=== PATIENT | male | born 1995 | race Caucasian/White ===

== ENCOUNTER 2023-11-03 09:42 | Emergency (ER) | payer OTHER, SELFPAY ==
[2023-11-03 09:43] VITALS: BP 129/90; PULSE 72; RESP 16; TEMP 36.6; O2SAT 100; BMI 27.7
[2023-11-03 09:45] VITALS: BP 129/78; PULSE 72; RESP 16; TEMP 36.6; O2SAT 98
--- NOTE | 2023-11-03 10:21 | EX.ED.VIS.EY ---
HPI History of Present Illness Chief Complaint: Eye Problem Associated Symptoms History of injury: No Narrative Narrative: 28-year-old male presents from urgent care with his fianc?e for right eyelid swelling when he awoke this morning. They relate history that he has had problems with conjunctivitis and reported periorbital cellulitis over the last few weeks. First it started in his left eye, then it was in his right eye. He has been on amoxicillin twice. Once was from urgent care, and there was leftover amoxicillin when it infected his right eye. He denies any fevers or chills, no loss of vision but he has had a bloodshot eye and right eye redness with a small amount of discharge. He has no pain with movement of his eye, no loss of vision. This is the first time that his right upper eyelid and somewhat in his lower eyelid has been swollen. He awoke this morning with his eyes swollen shut. PFSH PFS Home Medications amoxicillin 875 mg-potassium clavulanate 125 mg tablet 1 tab PO BID #20 tabs 11/03/23 [Rx Last Taken Unknown] Allergy/AdvReac Type Severity Reaction Status Date / Time No Known Allergies Allergy Verified 11/03/23 09:44 Social History Smoking Status: Never smoker ROS ROS ED ROS Narrative Constitutional: No fever, no chills. HEENT: No sore throat. No neck pain. No loss of vision. No rhinorrhea. Right eyelid swelling, upper greater than lower. Positive bloodshot eye. Cardiovascular: No chest pain. No palpitations. No pedal edema. Respiratory: No cough, no shortness of breath. Abdominal: No abdominal pain. No nausea. No vomiting. Genitourinary: No dysuria. No hematuria. Musculoskeletal: No myalgias. No arthralgias. Neurologic: No headaches. No dizziness. No lightheadedness. Skin: No rash. No change in color. Psychiatric: No depression. No anxiety. EXAM Physical Exam Narrative Exam Narrative: Focused physical exam. Afebrile. Nontoxic-appearing. Vital signs noted. HEENT: Normocephalic. Atraumatic. PERRL, EOMI. positive periorbital edema with right upper eyelid swelling and minimal swelling of right lower lid. No pain with movement of right eye/extraocular muscles. Positive conjunctival injection. No exudate. Neck soft and supple. No point tenderness or step off. Const Vital Signs: 11/03/23 09:43 11/03/23 09:45 Temperature 98 F 98 F Temperature Source Temporal Oral Pulse Rate 72 72 Respiratory Rate 16 16 Blood Pressure 129/90 H 129/78 H Blood Pressure Mean 103 95 Pulse Ox 100 98 Oxygen Delivery Method Room Air Room Air MDM MDM MDM Narrative Medical decision making narrative: In the differential diagnosis is periorbital cellulitis versus stye versus orbital cellulitis. I have low suspicion for orbital cellulitis as he has no pain with extraocular movement and there is no entrapment. I do feel that his edema is secondary to inflammation. He will be started on Augmentin for his recurrent periorbital cellulitis. I do not feel that he requires laboratory work or CT imaging. He was referred to the [facility] sn[facility] on-call and a prescription for Augmentin was written for the next 10 days to take twice a day. He will apply warm compresses as needed. I feel he can be discharged safely home with follow-up. Return instructions to the emergency department were reviewed. Disposition is discharged home in stable condition. History & Record Review Discussion w/independent historian: Patient and Significant other Discharge Plan Triage Chief Complaint: Eye Problem ED Provider: Adrián Newton Dx/Rx/DC Orders Clinical Impression: Swelling of right eyelid, Periorbital cellulitis of right eye Instructions: ED Periorbital Cellulitis Prescriptions: New amoxicillin-pot clavulanate 875-125 mg tablet 1 tab PO BID Qty: 20 0RF Referrals: Dwaine Manriquez MD [Med Staff - Active Staff] - As soon as possible Breonna Rebolledo MD [Med Staff - Active Staff] - 3-5 Days if not improving Disposition Disposition: Home, Self Care
[2023-11-03 10:34] VITALS: BP 119/69; PULSE 70; RESP 16; TEMP 36.6; O2SAT 98
[2023-11-03 10:35] VITALS: BP 119/69; PULSE 70; RESP 16; TEMP 36.8; O2SAT 98
== END 2023-11-03 10:36 | disposition home or self-care (01) ==
PROVIDERS: Emergency Provider Emergency Medicine; Visit Provider Emergency Medicine
DX: L03.213 Periorbital cellulitis (principal)
CPT/HCPCS: 99282

== ENCOUNTER → 2024-07-19 | Outpatient (CLI) | payer OTHER, SELFPAY ==
[2024-07-19 09:14] LABS: Absolute Lymphocyte Count 1.53 X10^3/uL (0.83-4.51); Absolute Neutrophil Count 5.6 X10^3/uL (2.0-7.7); Basophil# 0.06 X10^3/uL; Basophil% 0.8 % (0-1); Eosinophil# 0.09 X10^3/uL; Eosinophils% 1.1 % (0-5); Hematocrit 43.7 % (40-54); Hemoglobin 14.5 g/dL (13.0-16.5); Lymphocyte # 1.53 X10^3/ul (0.83-4.51); Lymphocyte % 19.2 % (19-41); Mean Corp Hgb Conc 33.2 g/dL (32-36); Mean Corpuscular Hgb 28.9 pg (27.0-32.0); Mean Corpuscular Volume 87.1 fL (80-94); Mean Platelet Vol. 9.3 fl (6.2-12.0); Monocyte# 0.68 X10^3/uL; Monocyte% 8.5 % (0-10); NRBC Flagged by Analyzer 0 % (0-5); Neutrophil # 5.56 X10^3/uL (2.7-7.7); Neutrophil % 69.9 % (47-70); Platelet Count 372 K/mm3 (150-450); RBC Distribution Width CV 11.9 % (11.6-14.6); RBC Distribution Width SD 38.2 fl (35.1-43.9); Red Blood Count 5.02 M/mm3 (4.6-6.2)
[2024-07-19 09:38] LABS: ALB/GLOB Ratio 1.1 RATIO (0.9-2.4); AST(SGOT) 74 U/L (15-37); Alanine Aminotransfer ALT/SGPT 144 U/L (16-61); Alkaline Phosphatase 99 U/L (45-117); Anion Gap 6 (5-15); BUN 14 mg/dL (7-18); BUN/Creat Ratio 14.7 RATIO (10-20); Calcium,Total 9.6 mg/dL (8.5-10.1); Chloride 107 mmol/L (98-107); Cholesterol 223 mg/dL (200); Creatinine, Serum 0.95 mg/dL (0.70-1.30); EST Glomerular Filtration Rate 101 mL/min (>60); Est Glom Filt Rate - Afr Amer 122 mL/min (>60); Globulin 3.8 g/dL (2.2-4.2); Glucose 100 mg/dL (74-106); High Density Lipoprotein 41 mg/dL; Protein, Total 7.8 g/dL (6.4-8.2); Sodium Level 138 mmol/L (136-145); Triglycerides 157 mg/dL; Very Low Density Lipoprotein 31 mg/dL (5-40)
[2024-07-21 12:28] LABS: Vitamin D,25 Hydroxy 12.5 ng/mL
[2024-07-21 13:48] LABS: Hemoglobin A1c 5.2 % (3.8-5.6)
== END | disposition home or self-care (01) ==
LOC: LAB 08:17
PROVIDERS: PCP Family Medicine; Referring Provider Family Medicine; Visit Provider Family Medicine
DX: Z00.00 Encounter for general adult medical examination without abnormal findings (principal); Z13.220 Encounter for screening for lipoid disorders; Z13.1 Encounter for screening for diabetes mellitus; R68.82 Decreased libido; R53.83 Other fatigue
CPT/HCPCS: 36415; 80053; 80061; 82306; 83036; 84403; 84443; 85025

== ENCOUNTER → 2024-10-04 | Outpatient (CLI) | payer OTHER, SELFPAY ==
--- NOTE | 2024-10-04 09:18 | US_ITS ---
PROCEDURE: Right upper quadrant ultrasound REASON FOR EXAM: Elevated liver enzymes COMPARISON: None FINDINGS: Liver: Diffuse increased hepatic echogenicity most consistent with steatosis. Gallbladder: No stones, sludge, wall thickening or tenderness. Common bile duct: Normal caliber common bile duct measuring 3 mm. . Pancreas: Visualized portions are sonographically unremarkable. Visualized portions of the right kidney are unremarkable. No right upper quadrant ascites. US/Abdomen Limited IMPRESSION: Hepatic steatosis. Reading Location: [facility]
== END | disposition home or self-care (01) ==
LOC: US 09:15
PROVIDERS: PCP Family Medicine; Referring Provider Family Medicine; Visit Provider Family Medicine
DX: R74.8 Abnormal levels of other serum enzymes (principal)
CPT/HCPCS: 76705

== ENCOUNTER → 2024-10-11 | Outpatient (CLI) | payer OTHER, SELFPAY | END | disposition home or self-care (01) | LOC: LAB 09:16 | PROVIDERS: PCP Family Medicine; Referring Provider Family Medicine; Visit Provider Family Medicine | DX: R68.82 Decreased libido (principal) | CPT/HCPCS: 36415; 84402; 84403 ==

== ENCOUNTER 2025-01-18 21:33 | Emergency (ER) | payer OTHER, SELFPAY ==
[2025-01-18 21:36] VITALS: BP 148/82; PULSE 71; RESP 18; TEMP 36.3; O2SAT 100; BMI 29.0
--- OUTSIDE RECORDS SUMMARY | 2025-01-18 21:59 | XMS RPT_ITS | CCD ---
Author Organization [facility] Inform ion Partnership [facility] Care Team Providers Care Charge Coordinator Name Role Phone CATA PIERCE Unavailable Unavailable HELGA PRINGLE Unavailable Unavailable Unavailable Primary Care Provider Unavailabl e Unavailable Primary Care Provider Unavailgen Jones MD, Fitz Primary Care Provider [phone] Fitz Jones MD Attending Provider Fitz Jones MD Referring Provider [phone] Karen, Fitz Referring Unavailable Karen, Chalon Attending Unavailable Karen, Chalon Primary Care Unavailable Karen, Chalon Referring Unavailable Karen, Chalon Attending Unavailable Kraen, Chalon Primary Care Unavailable McclellanPerez choudhury Attending Unavailable Karen, Chalon Primary Care Unavailable Karen, Chalon Attending Unavailable Karen, Chalon Primary Care Unavailable Karen, Chalon Referring Unavailable Medications Current Medications Medication Drug Class(es) Dates Sig (Normalized) Sig (Original) amoxicillin 875 mg / clavulanate 125 mg oral tablet (4 sources) Penicillin-class Antibacterial Start: 11-03-2023 Amoxicillin-Pot Clavulanate 875-125 mg tablet Active 1 {tbl} PO TWICE A DAY November 03, 2023 12:00am Start: 11-03-2023 take 1 tablet by leonarda th twice daily Amoxicillin-Pot Clavulanate Active 1 TABLET PO TWICE A DAY November 03, 2023 12:00am Start: 09-29-2023 End: 10-06-2023 take 1 tablet by mouth twice daily amoxicillin-clavulanate potassium (AUGMENTIN) 875-125 mg per tablet Indications: Bacterial sinusitis Take 1 tablet by mouth two times a day for 7 days. 14 tablet 0 09/29/2023 10/06/2023 Active Comment on above: Take 1 tablet by leonarda th two times a day for 7 days. polymyxin b 64587 unt/ml / trimethoprim 1 mg/ml ophthalmic solution (1 source) Dihydrofolate Reductase Inhibitor Antibacterial, Polymyxin-class Antibacterial Start: 09-29-19 End: 10-06-19 take 1 drop(s) into the eye(s) four times daily trimethoprim-polymyxi n (POLYTRIM) 10,000 unit- 1 mg/mL ophthalmic solution Indications: Bacterial conjunctivitis Use 1 Drop in the left eye four times daily for 7 days. 10 mL 0 09/29/2023 10/06/2023 Active Comment on above: Use 1 Drop in the le ft eye four times daily for 7 days. predniSONE 10 mg oral tablet (1 source) Start: 12-10-19 End: 12-19-19 take 4 tablets by mouth once daily, then take 2 tablets by mouth once daily, then take 1 tablet by mouth once daily predniSONE (DELTASONE) 10 mg tablet Indications: Contact dermatitis due to plant Take 4 tablets by mouth once daily for 3 days, THEN 2 tablets once daily for 3 days, THEN 1 tablet once daily for 3 days. Take with food.. 21 tablet 0 12/09/2021 12/18/2021 Active Comment on above: Take 4 tablets by mo [facility] once daily for 3 days, THEN 2 tablets once daily for 3 days, THEN 1 tablet once daily for 3 days. Take with food.. Completed/Discontinued Medications Medication Drug Class(es) Dates Sig (Normalized) Sig (Original) multivit,thx,calcium,iro n,mins (MULTIVITAMIN AND MINERAL ORAL) (4 sources) multivit,thx,moon cium,ir on,mins (MULTIVITAMIN AND MINERAL ORAL) Take by mouth. 0 Active Comment on above: Take by mouth. Problems Active Problems Problem Classification Problem Date Documented Date Episodic/Chronic Allergic reactions (1 source) Contact dermatitis due to plants; Translations: [Unspecified contact dermatitis due to plants, except food] Episodic Blindness and vision defects (1 source) Eye / vision finding; Translations: [Unspecified visual disturbance] 11-03-2023 Episodic Diseases of mouth; excluding dental (1 source) Cellulitis and abscess of mouth; Translations: [CELLULITIS AND ABSCESS OF MOUTH] Onset: 08-04-2017 Inflammation; infection of eye (except that caused by tuberculosis or sexually transmitteddisease) (2 sources) Bacterial conjunctivitis; Translations: [Unspecified conjunctivitis] 09-29-2023 Episodic Other eye disorders (3 sources) Swelling of eyelid; Translations: [Edema of right eye, unspecified eyelid] 11-03-2023 Episodic Other upper respiratory infections (1 source) Bacterial sinusitis; Translations: [Chronic sinusitis, unspecified] 09-29-2023 Chronic Skin and subcutaneous tissue infections (3 sources) Cellulitis of periorbital region; Translations: [Periorbital cellulitis] 11-03-2023 Episodic Unclassified (1 source) Other specified postprocedural states; Translations: [OTHER SPECIFIED POSTPROCEDURAL STATES] Onset: 08-04-2017 Past or Other Problems Problem Classification Problem Date Documented Da te Episodic/Chronic Other liver diseases (1 source) Abnormal levels of other serum enzymes; Translations: [Abnormal levels of other serum enzymes] Onset: 10-14-2024 Episodic Other upper respiratory infections (1 source) Acute pharyngitis, unspecified; Translations: [ACUTE PHARYNGITIS, UNSPECIFIED] Onset: 08-04-2017 Episodic Residual codes; unclassified (1 source) Decreased libido; Translations: [Decreased libido] Onset: 10-17-2024 Episodic Results Test Name Value Interpretation Reference Range Facility Testosterone, Total / Freeon 10-25-2024 TESTOSTER,FREE 8.76 ng/dL Normal 5.00-21.00 [facility] Comment on above: Order Comment: Order Date: 09/26/24 Order Info: 0024-1 - TESTF N Performed By: #### L 3100.5310 #### [facility] [address] [place], [address] TESTOSTER,TOTAL 188 ng/dL Low 264-916 [facility] Comment on above: Order Comment: Order Date: 09/26/24 Order Info: 0024-1 - TESTF N Result Comment: Adul t male reference interval is based on a population of healthy nonobese males (BMI <30) between 19 and 39 years old. bernardo Aguilera.al. JCEM 2017,102;7892-9030. PMID: [id number]. Performed By: #### L 3100.5310 #### [facility] [address] [place], [place], [address] TESTOSTERONE,%F 4.66 High 1.50-4.20 [facility] Comment on above: Order Comment: Order Date: 09/26/24 Order Info: 0024-1 - TESTF N Result Comment: Perf ormed at: - [facility] [address] [id number] Bag Adjuster: Fernie Martines PhD, Phone: [phone] Performed at: - [facility] [id number] Bag Adjuster: Andrews Arana MD, Phone: [phone] Performed By: #### L 3100.5310 #### [facility] [address] [place], [place], [address] Abdomen Limitedon 10-04-2024 Abdomen Limited [facility] [address] [place], [place] [address] Abdomen Limited MR#: [id number] Acct: [id number] Name: JOHN TOURE Rep #: [id number] : 1995 M 29 From: Ranjit Olivo PCP: Dr. Fitz Jones MD Status: REG CLI Study: Abdomen Limited Date of Exam: 10/04/24 Exam# [id number] Ordering Dr: Fitz Jones MD PROCEDURE: Right upper quadrant ultrasound REASON FOR EXAM: Elevated liver enzymes COMPARISON: None FINDINGS: Liver: Diffuse increased hepatic echogenicity most consistent with steatosis. Gallbladder: No stones, sludge, wall thickening or tenderness. Common bile duct: Normal caliber common bile duct measuring 3 mm. . Pancreas: Visualized portions are sonographically unremarkable. Visualized portions of the right kidney are unremarkable. No right upper quadrant ascites. US/Abdomen Limited IMPRESSION: Hepatic steatosis. [facility] CC: Dr. Fitz Jones MD Doctor Chiropractic: Signed Normal [facility] [id number] DOrdered By: Lowell Jones on 07-21-2024 Vitamin D 25-Hydroxy 12.5 ng/mL [facility] Comment on above: Vitamin D 25(OH) Sta tus Range Deficiency <20 ng/mL (50nmol/L) Insufficiency 20 - 30 ng/mL (50 - 75 nmol/L) Sufficiency 30 - 100 ng/mL (75 - 250 nmol/L) Toxicity >100 ng/mL (>250 nmol/L) Hemoglobin A1con 07-21-2024 HbA1c (Bld) [Mass fraction] 5.2 % Normal 3.8-5.6 [facility] Comment on above: Order Comment: JUAN J Law ADD A1C TO THE CBCD THAT WAS DONE ON 07 19 24 Result Comment: Norm al < 5.7 % Prediabetic 5.7 - 6.4 % Diabetic >or= 6.5 % Please note range changes. Performed By: #### L 501.9520, L506.1000, L509.3000, L501.9985 #### [facility] [address] [place], [place], [id number] Hemoglobin A1c percentageOrd ered By: Fitz Jones on 07-21-2024 HbA1c (Bld) [Mass fraction] 5.2 % 3.8-5.6 [facility] Comment on above: Normal < 5.7 % Predi abetic 5.7 - 6.4 % Diabetic >or= 6.5 % Please note range changes. Testosterone, Serum Totalon 07-21-2024 Testosterone [Mass/Vol] 135.82 ng/dL Normal [facility] Comment on above: Order Comment: JUAN J Law ADD TEST TOTAL TO BLOOD WORK THAT WAS DONE ON 07 19 24 Result Comment: CENT RAL 90% REFERENCE RANGES MALE AGE <50 197.44 - 669.58 ng/dL MALE AGE > or = 50 187.72 - 684.19 ng/dL FEMALE AGE <50 8.38 - 35.01 ng/dL FEMALE AGE > or = 50 <7.00 - 35.92 ng/dL Effective as of 02/15/21 Performed By: #### L 501.9520, L506.1000, L509.3000, L501.9985 #### [facility] [address] [place], [place], [id number] Testosterone, totalOrdered B y: Fitz Jones on 07-21-2024 Testosterone [Mass/Vol] 135.82 ng/dL [facility] Comment on above: CENTRAL 90% REFERENC E RANGES MALE AGE <50 197.44 - 669.58 ng/dL MALE AGE > or = 50 187.72 - 684.19 ng/dL FEMALE AGE <50 8.38 - 35.01 ng/dL FEMALE AGE > or = 50 <7.00 - 35.92 ng/dL Effective as of 02/15/21 Thyroid Stim Hormone (TSH)on 07-21-2024 TSH 2.820 uIU/mL Normal 0.358-3.740 [facility] Comment on above: Order Comment: JUAN J Law ADD ON TSH AND VITD TO BLOOD WORK DONE ON 07 19 24 PLEASE ADD ON TSH,VITD, TO BLOOD WORK THAT WAS DONE ON 07 19 24 Order Date: 07/17/24 Order Info: 0786-1 - CMP Order Info: [id number] - LIPID Performed By: #### L 501.9520, L506.1000, L509.3000, L501.9985 #### [facility] [address] [place], [place], [address] Vitamin D,25 Hydroxyon 07-21 Vitamin D 25-OH 12.5 ng/mL Normal [facility] Comment on above: Order Comment: JUAN J Law ADD TEST TOTAL TO BLOOD WORK THAT WAS DONE ON 07 19 24 Result Comment: Selam min D 25(OH) Status Range Deficiency <20 ng/mL (50nmol/L) Insufficiency 20 - 30 ng/mL (50 - 75 nmol/L) Sufficiency 30 - 100 ng/mL (75 - 250 nmol/L) Toxicity >100 ng/mL (>250 nmol/L) Performed By: #### L 501.9520, L506.1000, L509.3000, L501.9985 #### [facility] [address] [place], [place], [address] Absolute neutrophil countOrd ered By: Fitz Jones on 07-19-2024 Neutrophils (Bld) [#/Vol] 5.6 10*3/uL 2.0-7.7 [facility] Albumin to globulin ratioOrd ered By: Fitz Jones on 07-19-2024 Albumin/Globulin [Mass ratio] 1.1 {ratio} 0.9-2.4 [facility] Basophil percentageOrdered B y: Fitz Jones on 07-19-2024 Basophils/100 WBC (Bld) 0.8 % 0-1 [facility] Bilirubin, totalOrdered By: Fitz Jones on 07-19-2024 Bilirubin [Mass/Vol] 1.00 mg/dL 0.20-1.00 [facility] Comment on above: For patients on eltr ombopag therapy, use of Dimension [place] TBIL is not recommended. Blood urea nitrogen (BUN)/cr eatinine ratioOrdered By: Fitz Jones on 07-19-2024 Urea nitrogen/Creatinine [Mass ratio] 14.7 mg/mg 10-20 [facility] CBC W/Diff, Automatedon 06-23 Absolute Lymph 1.53 X10 3/uL Normal 0.83-4.51 [facility] Comment on above: Order Comment: Order Date: 07/17/24 Order Info: 0184-1 - CBCD Performed By: #### L 100.0100, L500.4050, L500.4100 #### [facility] [address] [place], [address] Absolute Neut 5.6 X10 3/uL Normal 2.0-7.7 [facility] Comment on above: Order Comment: Order Date: 07/17/24 Order Info: 0184-1 - CBCD Performed By: #### L 100.0100, L500.4050, L500.4100 #### [facility] [address] [place], [address] Basophils/100 WBC (Bld) 0.8 % Normal 0-1 [facility] Comment on above: Order Comment: Order Date: 07/17/24 Order Info: 0184-1 - CBCD Performed By: #### L 100.0100, L500.4050, L500.4100 #### [facility] [address] [place], [address] Eosinophils/100 WBC (Bld) 1.1 % Normal 0-5 [facility] Comment on above: Order Comment: Order Date: 07/17/24 Order Info: 0184-1 - CBCD Performed By: #### L 100.0100, L500.4050, L500.4100 #### [facility] [address] [place], [address] Erythrocyte distribution width (RBC) [Ratio] 11.9 % Normal 11.6-14.6 [facility] Comment on above: Order Comment: Order Date: 07/17/24 Order Info: 018- - CBCD Performed By: #### L 100.0100, L500.4050, L500.4100 #### [facility] [address] [place], [address] Hematocrit (Bld) [Volume fraction] 43.7 % Normal 40-54 [facility] Comment on above: Order Comment: Order Date: 07/17/24 Order Info: 018- - CBCD Performed By: #### L 100.0100, L500.4050, L500.4100 #### [facility] [address] [place], [address] Hemoglobin (Bld) [Mass/Vol] 14.5 g/dL Normal 13.0-16.5 [facility] Comment on above: Order Comment: Order Date: 07/17/24 Order Info: 0184-1 - CBCD Performed By: #### L 100.0100, L500.4050, L500.4100 #### [facility] [address] [place], [address] IG% 0.500 Normal 0.0-0.9 [facility] Comment on above: Order Comment: Order Date: 07/17/24 Order Info: 0184-1 - CBCD Result Comment: IG% - Immature Granulocytes (promyelocytes, myelocytes and metamyelocytes) > 1% indicates that a LEFT SHIFT is Present. Performed By: #### L 100.0100, L500.4050, L500.4100 #### [facility] [address] [place], [address] Lymphocytes/100 WBC (Bld) 19.2 % Normal 19-41 [facility] Comment on above: Order Comment: Order Date: 07/17/24 Order Info: 0184-1 - CBCD Performed By: #### L 100.0100, L500.4050, L500.4100 #### [facility] [address] [place], [address] MCH (RBC) [Entitic mass] 28.9 pg Normal 27.0-32.0 [facility] Comment on above: Order Comment: Order Date: 07/17/24 Order Info: 0184-1 - CBCD Performed By: #### L 100.0100, L500.4050, L500.4100 #### [facility] [address] [place], [address] MCHC (RBC) [Mass/Vol] 33.2 g/dL Normal 32-36 [facility] Comment on above: Order Comment: Order Date: 07/17/24 Order Info: 0184-1 - CBCD Performed By: #### L 100.0100, L500.4050, L500.4100 #### [facility] [address] [place], [address] MCV (RBC) [Entitic vol] 87.1 fL Normal 80-94 [facility] Comment on above: Order Comment: Order Date: 07/17/24 Order Info: 0184-1 - CBCD Performed By: #### L 100.0100, L500.4050, L500.4100 #### [facility] [address] [place], [address] Monocytes/100 WBC (Bld) 8.5 % Normal 0-10 [facility] Comment on above: Order Comment: Order Date: 07/17/24 Order Info: 0184-1 - CBCD Performed By: #### L 100.0100, L500.4050, L500.4100 #### [facility] [address] [place], [address] Neutrophils/100 WBC (Bld) 69.9 % Normal 47-70 [facility] Comment on above: Order Comment: Order Date: 07/17/24 Order Info: 0184-1 - CBCD Performed By: #### L 100.0100, L500.4050, L500.4100 #### [facility] [address] [place], [address] Nucleated RBC (Bld) [#/Vol] 0 10*3/uL Normal 0-5 [facility] Comment on above: Order Comment: Order Date: 07/17/24 Order Info: 018- - CBCD Performed By: #### L 100.0100, L500.4050, L500.4100 #### [facility] [address] [place], [address] Platelet mean volume (Bld) [Entitic vol] 9.3 fL Normal 6.2-12.0 [facility] Comment on above: Order Comment: Order Date: 07/17/24 Order Info: 018-1 - CBCD Performed By: #### L 100.0100, L500.4050, L500.4100 #### [facility] [address] [place], [address] Platelets (Bld) [#/Vol] 372 10*3/uL Normal 150-450 [facility] Comment on above: Order Comment: Order Date: 07/17/24 Order Info: 0184-1 - CBCD Performed By: #### L 100.0100, L500.4050, L500.4100 #### [facility] [address] [place], [address] RBC (Bld) [#/Vol] 5.02 10*6/uL Normal 4.6-6.2 [facility] Comment on above: Order Comment: Order Date: 07/17/24 Order Info: 018-1 - CBCD Performed By: #### L 100.0100, L500.4050, L500.4100 #### [facility] [address] [place], [address] RDW SD 38.2 fl Normal 35.1-43.9 [facility] Comment on above: Order Comment: Order Date: 07/17/24 Order Info: 0184- - CBCD Performed By: #### L 100.0100, L500.4050, L500.4100 #### [facility] [address] [place], [address] WBC (Bld) [#/Vol] 8.0 10*3/uL Normal 4.4-11.0 [facility] Comment on above: Order Comment: Order Date: 07/17/24 Order Info: 0184- - CBCD Performed By: #### L 100.0100, L500.4050, L500.4100 #### [facility] [address] [place], [address] Carbon dioxide measurementOr dered By: Fitz Jones on 07-19-2024 CO2 [Moles/Vol] 25.0 mmol/L 21.0-32.0 [facility] Chloride measurementOrdered By: Fitz Jones on 07-19-2024 Chloride [Moles/Vol] 107 mmol/L 98-107 [facility] Comprehensive Metabolic Prof ilon 07-19-2024 Albumin [Mass/Vol] 4.0 g/dL Normal 3.2-5.0 [facility] Comment on above: Order Comment: Order Date: 07/17/24 Order Info: 0786-1 - CMP Order Info: [id number] - LIPID Performed By: #### L 100.0100, L500.4050, L500.4100 #### [facility] [address] [place], [address] Albumin/Globulin [Mass ratio] 1.1 {ratio} Normal 0.9-2.4 [facility] Comment on above: Order Comment: Order Date: 07/17/24 Order Info: 0786-1 - CMP Order Info: [id number] - LIPID Performed By: #### L 100.0100, L500.4050, L500.4100 #### [facility] [address] [place], [address] ALK P 99 U/L Normal 45-117 [facility] Comment on above: Order Comment: Order Date: 07/17/24 Order Info: [id number] - CMP Order Info: [id number] - LIPID Performed By: #### L 100.0100, L500.4050, L500.4100 #### [facility] [address] [place], [address] ALT [Catalytic activity/Vol] 144 U/L High 16-61 [facility] Comment on above: Order Comment: Order Date: 07/17/24 Order Info: 0786-1 - CMP Order Info: [id number] - LIPID Performed By: #### L 100.0100, L500.4050, L500.4100 #### [facility] [address] [place], [address] AST [Catalytic activity/Vol] 74 U/L High 15-37 [facility] Comment on above: Order Comment: Order Date: 07/17/24 Order Info: [id number] - CMP Order Info: [id number] - LIPID Performed By: #### L 100.0100, L500.4050, L500.4100 #### [facility] [address] [place], [address] Bilirubin [Mass/Vol] 1.00 mg/dL Normal 0.20-1.00 [facility] Comment on above: Order Comment: Order Date: 07/17/24 Order Info: 0786-1 - CMP Order Info: [id number] - LIPID Result Comment: For patients on eltrombopag therapy, use of Dimension [place] TBIL is not recommended. Performed By: #### L 100.0100, L500.4050, L500.4100 #### [facility] [address] [place], [address] BUN/CRE 14.7 RATIO Normal 10-20 [facility] Comment on above: Order Comment: Order Date: 07/17/24 Order Info: 0786-1 - CMP Order Info: [id number] - LIPID Performed By: #### L 100.0100, L500.4050, L500.4100 #### [facility] [address] [place], [address] CA,Total 9.6 mg/dL Normal 8.5-10.1 [facility] Comment on above: Order Comment: Order Date: 07/17/24 Order Info: 0786- - CMP Order Info: [id number] - LIPID Performed By: #### L 100.0100, L500.4050, L500.4100 #### [facility] [address] [place], [address] Chloride [Moles/Vol] 107 mmol/L Normal 98-107 [facility] Comment on above: Order Comment: Order Date: 07/17/24 Order Info: 0786- - CMP Order Info: [id number] - LIPID Performed By: #### L 100.0100, L500.4050, L500.4100 #### [facility] [address] [place], [address] CO2 [Moles/Vol] 25.0 mmol/L Normal 21.0-32.0 [facility] Comment on above: Order Comment: Order Date: 07/17/24 Order Info: 0786-1 - CMP Order Info: [id number] - LIPID Performed By: #### L 100.0100, L500.4050, L500.4100 #### [facility] [address] [place], [address] Creatinine [Mass/Vol] 0.95 mg/dL Normal 0.70-1.30 [facility] Comment on above: Order Comment: Order Date: 07/17/24 Order Info: 07 - CMP Order Info: [id number] - LIPID Result Comment: The validity of the calculated GFR GFRAA in patients over 70 years has not been determined. Clinical correlation is essential. Performed By: #### L 100.0100, L500.4050, L500.4100 #### [facility] [address] [place], [address] EST GFR - AA 122 mL/min Normal >60 [facility] Comment on above: Order Comment: Order Date: 07/17/24 Order Info: [id number] - CMP Order Info: [id number] - LIPID Result Comment: Afri can Italian GFR Calc Performed By: #### L 100.0100, L500.4050, L500.4100 #### [facility] [address] [place], [address] GAP 6 Normal 5-15 [facility] Comment on above: Order Comment: Order Date: 07/17/24 Order Info: 07 - CMP Order Info: [id number] - LIPID Performed By: #### L 100.0100, L500.4050, L500.4100 #### [facility] [address] [place], [address] GFR/1.73 sq M.predicted among non-blacks MDRD (S/P/Bld) [Vol rate/Area] 101 mL/min/{1.73_m2} Normal >60 [facility] Comment on above: Order Comment: Order Date: 07/17/24 Order Info: 0786 - CMP Order Info: [id number] - LIPID Result Comment: Non- GFR Calc Performed By: #### L 100.0100, L500.4050, L500.4100 #### [facility] [address] [place], [address] Globulin (S) [Mass/Vol] 3.8 g/dL Normal 2.2-4.2 [facility] Comment on above: Order Comment: Order Date: 07/17/24 Order Info: 0786 - CMP Order Info: [id number] - LIPID Performed By: #### L 100.0100, L500.4050, L500.4100 #### [facility] [address] [place], [address] Glucose [Mass/Vol] 100 mg/dL Normal 74-106 [facility] Comment on above: Order Comment: Order Date: 07/17/24 Order Info: [id number] - CMP Order Info: [id number] - LIPID Result Comment: Fast ing Glucose result from 100 to 125 mg/dL suggests IMPAIRED HOMEOSTASIS per A.D.A. criteria. Performed By: #### L 100.0100, L500.4050, L500.4100 #### [facility] [address] [place], [address] Potassium [Moles/Vol] 4.0 mmol/L Normal 3.5-5.1 [facility] Comment on above: Order Comment: Order Date: 07/17/24 Order Info: 0786- - CMP Order Info: [id number] - LIPID Performed By: #### L 100.0100, L500.4050, L500.4100 #### [facility] [address] [place], [address] Sodium [Moles/Vol] 138 mmol/L Normal 136-145 [facility] Comment on above: Order Comment: Order Date: 07/17/24 Order Info: 0786- - CMP Order Info: [id number] - LIPID Performed By: #### L 100.0100, L500.4050, L500.4100 #### [facility] [address] [place], [address] T PROT 7.8 g/dL Normal 6.4-8.2 [facility] Comment on above: Order Comment: Order Date: 07/17/24 Order Info: [id number] - CMP Order Info: [id number] - LIPID Performed By: #### L 100.0100, L500.4050, L500.4100 #### [facility] [address] [place], [place], [address] Urea nitrogen [Mass/Vol] 14 mg/dL Normal 7-18 [facility] Comment on above: Order Comment: Order Date: 07/17/24 Order Info: [id number] - CMP Order Info: [id number] - LIPID Performed By: #### L 100.0100, L500.4050, L500.4100 #### [facility] [address] [place], [place], [address] Eosinophil percentageOrdered By: Fitz Jones on 07-19-2024 Eosinophils/100 WBC (Bld) 1.1 % 0-5 [facility] Erythrocyte distribution wid th ratioOrdered By: Fitz Karen on 07-19-2024 Erythrocyte distribution width (RBC) [Ratio] 11.9 % 11.6-14.6 [facility] Erythrocyte distribution wid th standard deviationOrdered By: Fitz Karen on 07-19-2024 Erythrocyte distribution width (RBC) [Entitic vol] 38.2 fL 35.1-43.9 [facility] Estimated glomerular filtrat ion rate (GFR) AmericanOrdered By: Fitz Jones on 07-19-2024 Estimated GFR (MDRD) Amer 122 mL/min >60 [facility] Comment on above: GFR Calc Glomerular filtration rate ( GFR) estimationOrdered By: Fitz Jones on 07-19-2024 Estimated GFR (MDRD) Non-Af Amer 101 mL/min >60 [facility] Comment on above: Non- GFR Calc Glucose measurementOrdered B y: Fitz Jones on 07-19-2024 Glucose [Mass/Vol] 100 mg/dL 74-106 [facility] Comment on above: Fasting Glucose resu lt from 100 to 125 mg/dL suggests IMPAIRED HOMEOSTASIS per A.D.A. criteria. Hematocrit Auto (Bld) [Volum e fraction]Ordered By: Fitz Jones on 07-19-2024 Hematocrit (Bld) [Volume fraction] 43.7 % 40-54 [facility] Hemoglobin measurementOrdere d By: Fitz Jones on 07-19-2024 Hemoglobin (Bld) [Mass/Vol] 14.5 g/dL 13.0-16.5 [facility] High density lipoprotein (HD L) measurementOrdered By: Fitz Jones on 07-19-2024 Cholesterol in HDL [Mass/Vol] 41 mg/dL >40 [facility] Comment on above: The drugs N-Acetylcy steine and Metamizole may falsely depress this assay. Reference Range HDL <40 mg/dL Low HDL Cholesterol HDL >or= 60 mg/dL High HDL Cholesterol Immature granulocytes/100 WB C Auto (Bld)Ordered By: Fitz Jones on 07-19-2024 Immature granulocytes/100 WBC (Bld) 0.500 % 0.0-0.9 [facility] Comment on above: IG% - Immature Granu locytes (promyelocytes, myelocytes and metamyelocytes) > 1% indicates that a LEFT SHIFT is Present. Laboratory - Chemistry and C hemistry - challengeOrdered By: Fitz Jones on 07-19-2024 AST [Catalytic activity/Vol] 74 U/L High 15-37 [facility] Lipid Profileon 07-19-2024 Cholesterol [Mass/Vol] 223 mg/dL High 200 [facility] Comment on above: Order Comment: Order Date: 07/17/24 Order Info: [id number] - CMP Order Info: [id number] - LIPID Result Comment: <200 mg/dL Desirable 200-240 mg/dL Borderline >240 mg/dL High Risk Performed By: #### L 100.0100, L500.4050, L500.4100 #### [facility] [address] [place], [address] Cholesterol in HDL [Mass/Vol] 41 mg/dL Normal [facility] Comment on above: Order Comment: Order Date: 07/17/24 Order Info: [id number] - CMP Order Info: [id number] - LIPID Result Comment: The drugs N-Acetylcysteine and Metamizole may falsely depress this assay. Reference Range HDL <40 mg/dL Low HDL Cholesterol HDL >or= 60 mg/dL High HDL Cholesterol Performed By: #### L 100.0100, L500.4050, L500.4100 #### [facility] [address] [place], [address] Cholesterol in LDL [Mass/Vol] 151 mg/dL High 0-130 [facility] Comment on above: Order Comment: Order Date: 07/17/24 Order Info: [id number] - CMP Order Info: [id number] - LIPID Performed By: #### L 100.0100, L500.4050, L500.4100 #### [facility] [address] [place], [address] Cholesterol in VLDL [Mass/Vol] 31 mg/dL Normal 5-40 [facility] Comment on above: Order Comment: Order Date: 07/17/24 Order Info: [id number] - CMP Order Info: [id number] - LIPID Performed By: #### L 100.0100, L500.4050, L500.4100 #### [facility] [address] [place], [address] Triglyceride [Mass/Vol] 157 mg/dL Normal [facility] Comment on above: Order Comment: Order Date: 07/17/24 Order Info: [id number] - CMP Order Info: [id number] - LIPID Result Comment: The drugs N-Acetylcysteine and Metamizole may falsely depress this assay. Serum Triglycerides Reference Interval Normal <150 mg/dL Borderline high 150 - 199 mg/dL High 200 - 499 mg/dL Very High > or = 500 mg/dL Performed By: #### L 100.0100, L500.4050, L500.4100 #### [facility] [address] [place], [address] Low density lipoprotein (LDL ) cholesterol measurementOrdered By: Fitz Jones on 07-19-2024 Cholesterol in LDL [Mass/Vol] 151 mg/dL High 0-130 [facility] Lymphocytes Auto (Unsp spec) [#/Vol]Ordered By: Fitz Jones on 07-19-2024 Lymphocytes (Bld) [#/Vol] 1.53 10*3/uL 0.83-4.51 [facility] Lymphocytes/100 WBC Auto (Un sp spec)Ordered By: Fitz Jones on 07-19-2024 Lymphocytes/100 WBC (Bld) 19.2 % 19-41 [facility] MCV (mean corpuscular volume ) determinationOrdered By: Fitz Jones on 07-19-2024 MCV (RBC) [Entitic vol] 87.1 fL 80-94 [facility] Mean corpuscular hemoglobin (MCH) determinationOrdered By: Fitz Jones on 07-19-2024 MCH (RBC) [Entitic mass] 28.9 pg 27.0-32.0 [facility] Mean corpuscular hemoglobin concentration (MCHC) determinationOrdered By: Fitz Jones on 07-19-2024 MCHC (RBC) [Mass/Vol] 33.2 g/dL 32-36 [facility] Mean platelet volume determi nationOrdered By: Fitz Jones on 07-19-2024 Platelet mean volume (Bld) [Entitic vol] 9.3 fL 6.2-12.0 [facility] Monocyte percentageOrdered B y: Fitz Jones on 07-19-2024 Monocytes/100 WBC (Bld) 8.5 % 0-10 [facility] Neutrophil percentageOrdered By: Fitz Jones on 07-19-2024 Neutrophils/100 WBC (Bld) 69.9 % 47-70 [facility] Nucleated red blood cell per centageOrdered By: Fitz Jones on 07-19-2024 Nucleated RBC/100 WBC (Bld) [Ratio] 0 % 0-5 [facility] Platelet countOrdered By: Edy Jones on 07-19-2024 Platelets (Bld) [#/Vol] 372 10*3/uL 150-450 [facility] Potassium measurementOrdered By: Fitz Jones on 07-19-2024 Potassium [Moles/Vol] 4.0 mmol/L 3.5-5.1 [facility] RBC Auto (Bld) [#/Vol]Ordere d By: Fitz Jones on 07-19-2024 RBC (Bld) [#/Vol] 5.02 10*6/uL 4.6-6.2 [facility] Serum anion gap measurementO rdered By: Fitz Jones on 07-19-2024 Anion gap [Moles/Vol] 6 mmol/L 5-15 [facility] Serum globulin measurementOr dered By: Fitz Jones on 07-19-2024 Globulin (S) [Mass/Vol] 3.8 g/dL 2.2-4.2 [facility] Serum or plasma alanine negro otransferase (ALT) measurementOrdered By: Fitz Jones on 07-19-2024 ALT [Catalytic activity/Vol] 144 U/L High 16-61 [facility] Serum or plasma albumin dionicio urement (mass/volume)Ordered By: Fitz Jones on 07-19-2024 Albumin [Mass/Vol] 4.0 g/dL 3.2-5.0 [facility] Serum or plasma alkaline lyla sphatase measurementOrdered By: Fitz Jones on 07-19-2024 ALP [Catalytic activity/Vol] 99 U/L 45-117 [facility] Serum or plasma calcium dionicio urement (mass/volume)Ordered By: Fitz Jones on 07-19-2024 Calcium [Mass/Vol] 9.6 mg/dL 8.5-10.1 [facility] Serum or plasma cholesterol measurement (mass/volume)Ordered By: Fitz Jones on 07-19-2024 Cholesterol [Mass/Vol] 223 mg/dL High <200 [facility] Comment on above: <200 mg/dL Desirable 200-240 mg/dL Borderline >240 mg/dL High Risk Serum or plasma creatinine m easurement (mass/volume)Ordered By: Fitz Jones on 07-19-2024 Creatinine [Mass/Vol] 0.95 mg/dL 0.70-1.30 [facility] Comment on above: The validity of the calculated GFR & GFRAA in patients over 70 years has not been determined. Clinical correlation is essential. Serum or plasma urea nitroge n measurement (mass/volume)Ordered By: Fitz Jones on 07-19-2024 Urea nitrogen [Mass/Vol] 14 mg/dL 7-18 [facility] Sodium levelOrdered By: Milan Jones on 07-19-2024 Sodium [Moles/Vol] 138 mmol/L 136-145 [facility] TSH QnOrdered By: Fitz law on 07-19-2024 Thyroid Stimulating Hormone (TSH) 2.820 uIU/mL 0.358-3.740 [facility] Total proteinOrdered By: Caterina Jones on 07-19-2024 Protein [Mass/Vol] 7.8 g/dL 6.4-8.2 [facility] Triglycerides measurementOrd ered By: Fitz Jones on 07-19-2024 Triglyceride [Mass/Vol] 157 mg/dL <199 [facility] Comment on above: The drugs N-Acetylcy steine and Metamizole may falsely depress this assay.Serum Triglycerides Reference Interval Normal <150 mg/dL Borderline high 150 - 199 mg/dL High 200 - 499 mg/dL Very High > or = 500 mg/dL Very low density lipoprotein (VLDL) cholesterol measurementOrdered By: Fitz Jones on 07-19-2024 VLDL Cholesterol 31 mg/dL 5-40 [facility] White blood cell (WBC) count Ordered By: Fitz Jones on 07-19-2024 WBC (Bld) [#/Vol] 8.0 10*3/uL 4.4-11.0 [facility] CNOVon 11-03-2023 CNOV Office Visit (UCTR) JOHN TOURE ([id number]) 1995 M Date Time Provider Department 11/03/23 9:15 AM CLAUDIA BRANDT [facility] During your visit today, we recorded the following information about you: Claudia Brandt APRN.CNP 11/03/2023 9:40 AM Signed Patient triaged at [facility]. Here today with right eye infection, pain, slight fever. Reports change in color vision of infected eye. I will refer to ER Referring Provider: ANA LEE V [[id number]] Allergies As of Date: 11/03/2023 (No Known Allergies) Date Reviewed: 09/29/2023 Reviewed by: Juliet Pierce LPN - Fully Assessed Primary Visit Diagnosis:Vision changes [H53.9] Other Visit Diagnosis:Orbital cellulitis on right [H05.011] Prescriptions as of 11/03/2023 - multivit,thx,calcium ,iron,mins (MULTIVITAMIN AND MINERAL ORAL) Take by mouth. Problem List As Of Date: 11/03/2023 (None) Encounter Status:Closed by CLAUDIA BRANDT on 11/03/23 [facility] CNOVon 09-29-2023 CNOV Office Visit (UCWSTR) JOHN TOURE ([id number]) 1995 M Date Time Provider Department 09/29/23 11:15 AM SANDRA ALMAZAN [facility] During your visit today, we recorded the following information about you: Temperature Pulse Respiration Blood pressure 97.9 degrees 64/minute 18/minute 127/82 Weight 97.9 kg Sandra Almazan APRN.SLACK COOPER 09/29/2023 11:32 AM Signed ASSESSMENT/PLAN: 1. Bacterial sinusitis - ICD9: 473.9, 041.9, ICD10: J32.9, B96.89 (primary diagnosis) - Will begin treatment with as per antibiotic as written, see orders - AMOXICILLIN 875 MG-POTASSIUM CLAVULANATE 125 MG TABLET 2. Bacterial conjunctivitis - ICD9: 372.39, 041.9, ICD10: H10.9 - see medication orders - course and contagiousness issues discussed, including hand washing. - call if high fever, development of periorbital redness or swelling, eye pain, visual changes, concerns or if symptoms persist. - POLYMYXIN B SULFATE 10,000 UNIT-TRIMETHOPRIM 1 MG/ML EYE DROPS - Follow-up with your PCP or eye doctor in 2 days if symptoms have not improved or sooner if symptoms worsen - Discussed red flags and need for immediate medical evaluation if any occur. - Discussed supportive care treatment with fluids, rest and analgesia. - Discussed expected course of illness MEGAN Gonsalves Kathy, APRN.CNP 09/29/2023 11:46 AM Signed Subjective Eye Problem Associated symptoms include congestion. Pertinent negatives include no chest pain, chills, coughing, fever, headaches, myalgias, rash or sore throat. John Toure is a 28 year old male who presents with sinus congestion and drainage and sinus pressure x 1 week; this morning woke up with left eye swollen and drainage from the eye. He denies eye pain. States the eye is red and itchy. Denies foreign body sensation. Drainage from eye is yellow, vision gets blurred when there is a lot of drainage, otherwise vision is normal. No fever or sore throat. Review of Systems Constitutional: Negative for chills and fever. HENT: Positive for congestion and sinus pain. Negative for ear pain and sore throat. Eyes: Positive for blurred vision, discharge and redness. Negative for double vision, photophobia and pain. Respiratory: Negative for cough. Cardiovascular: Negative for chest pain. Musculoskeletal: Negative for myalgias. Skin: Negative for rash. Neurological: Negative for headaches. BP 127/82 Pulse 64 Temp 36.6 ?C (97.9 ?F) Resp 18 Wt 97.9 kg (215 lb 13.3 oz) SpO2 97% PAST MEDICAL HISTORY Diagnosis Date NEGATIVE MEDICAL HISTORY PAST SURGICAL HISTORY Procedure Laterality Date TYMPANOSTOMY Bilateral childhood TM tubes ALLERGIES Patient has no known allergies. MEDICATIONS multivit,thx,calcium ,iron,mins (MULTIVITAMIN AND MINERAL ORAL) Take by mouth. amoxicillin-clavulan ate potassium (AUGMENTIN) 875-125 mg per tablet Take 1 tablet by mouth two times a day for 7 days. trimethoprim-polymyx in (POLYTRIM) 10,000 unit- 1 mg/mL ophthalmic solution Use 1 Drop in the left eye four times daily for 7 days. No family history on file. Social History Tobacco Use Smoking status: Never Smokeless tobacco: Never Substance Use Topics Alcohol use: Yes Comment: social Drug use: Never Objective Physical Exam Vitals and nursing note reviewed. Constitutional: General: He is not in acute distress. Appearance: Normal appearance. HENT: Right Ear: Tympanic membrane, ear canal and external ear normal. Left Ear: Tympanic membrane, ear canal and external ear normal. Nose: Nasal tenderness, mucosal edema, congestion and rhinorrhea present. Mouth/Throat: Pharynx: Uvula midline. No oropharyngeal exudate or posterior oropharyngeal erythema. Eyes: General: Vision grossly intact. Gaze aligned appropriately. Left eye: Discharge present.No hordeolum. Conjunctiva/sclera: Right eye: Right conjunctiva is not injected. No chemosis, exudate or hemorrhage. Left eye: Left conjunctiva is injected. No chemosis, exudate or hemorrhage. Cardiovascular: Rate and Rhythm: Normal rate and regular rhythm. Heart sounds: Normal heart sounds. Pulmonary: Effort: Pulmonary effort is normal. No respiratory distress. Breath sounds: Normal breath sounds. No wheezing or rales. Musculoskeletal: Cervical back: Neck supple. Lymphadenopathy: Cervical: No cervical adenopathy. Skin: General: Skin is warm and dry. Findings: No erythema or rash. Neurological: Mental Status: He is alert. ASSESSMENT/PLAN: 1. Bacterial sinusitis - ICD9: 473.9, 041.9, ICD10: J32.9, B96.89 (primary diagnosis) - Will begin treatment with as per antibiotic as written, see orders - AMOXICILLIN 875 MG-POTASSIUM CLAVULANATE 125 MG TABLET 2. Bacterial conjunctivitis - ICD9: 372.39, 041.9, ICD10: H10.9 - see medication orders - course and contagiousness issues discussed, (more content not included)... Normal [facility] EMERGENCY DEPARTMENTon 07-12 EMERGENCY DEPARTMENT [place] [id number] HE[facility] INFORMATION MANAGEMENT EMERGENCY DEPARTMENT : [id number] Signed Patient: JOHN TOURE Acct:[id number] MRUN: [id number] : 1995 Sex: M Loc: ED ADM Date: 12/15/17 Room/Bed: DISC Date: 07/06/17 ED Sore Throat HPI - General Chief Complaint: Sore Throat Stated Complaint: SORE THROAT HPI: C/O SORE THROAT AND DIFFICULTY SWALLOWING THAT BEGAN UPON WAKING THIS AM Time Seen by Provider: 07/06/17 15:46 Nurses Notes Reviewed and Agreed With?: Yes Source: Patient Mode of Transport: Ambulatory Who is the Attending Physician?: JAC PIERCE Is This The Back Up Physician?: No - History of Present Illness Initial Comments: 22-year-old male presents today with sore throat. He states his uvula is swollen. He denies any new allergens. States feels like a sore throat. He states hurts to swallow. He is tolerating fluids and urinating normally. No other concerns at this time. Onset/Timin -: days(s) Associated S/S: pain Pain severity: moderate Pain radiation: none Quality: sharp Consistency: constant Context: none Treatment LUMBER TALLIER: no prearrival treatment Fever: No - Related Data Home Medications: Home Medications Medication Instructions Recorded Confirmed Amox Tr/Potassium Clavulanate 1 tab PO BID #20 tablet 07/06/17 [Augmentin 875-125 Tablet] Hydrocodone Bit/Acetaminophen 1 tab PO Q6H PRN #6 tablet 07/06/17 [[place] 5/325 mg Tablet] Ibuprofen 800 mg PO TID PRN #30 tablet 07/06/17 Allergies/Adverse Reactions: Allergies Allergy/AdvReac Type Severity Reaction Status Date / Time No Known Allergies Allergy Verified 07/06/17 15:50 Home medications and allergies reviewed: Yes Review of System - Constitutional Constitutional: Present: Well developed, Well nourished, Non-toxic - Nose,Throat,Mouth Nose (ROS): Absent: congestion, pain, bloody discharge, clear discharge, purulent discharge Throat: Present: pain. Absent: swelling, discharge Mouth: Absent: pain, swelling - Respiratory Respiratory: Absent: cough, short of breath, wheezing - CV Cardiology: Absent: chest pain, edema - GI Gastrointestinal/Abd ominal: Absent: abdominal pain, diarrhea, nausea, vomiting - Genitourinary Symptoms: Absent: dysuria - Neuro Neurological: Absent: headache, weakness - Muskuloskeletal Musculoskeletal: Absent: back pain, joint pain, joint swelling - Integumentary Skin: Absent: lesions, rash - Allergic/Immunologic Immunological/Allerg ic: Present: no symptoms reported - Hematologic Hematologic/Lymphati c: Absent: easy bleeding, easy bruising, swollen glands - Endocrine Endocrine: Present: no symptoms reported - Psychiatric Psychiatric: Present: Normal Affect, Normal Mood. Absent: Depressed - All Others/Exceptions All Other Systems: Reviewed and Negative Except Where Noted in Documentation ED PMH/Social HX/Family HX - Respiratory Hx Respiratory Disorders: No - Cardiovascular Hx Cardiac Disorders: No - Neurological Hx Neurological Disorder: No - Endocrine Hx Endocrine Disorders: No - Gastrointestinal Hx Gastrointestinal Disorders: No - Genitourinary Hx Genitourinary Disorders: No - Musculoskeletal Hx Musculoskeletal Disorders: No - Reproductive Hx Reproductive Disorders: No - Psychological Hx Psychosocial Problems: No - HEENT Past Surgical Hx-ENT: Adenoidectomy, Tonsillectomy, TTI (Ear Tubes) - Cancer Hx Cancer: No - Immunizations Hx Tetanus, Diphtheria Vaccination: Yes Hx Influenza Vaccination: No Hx Pneumococcal Vaccination: No - Social History Highest Educational Level: High School Able to Read: Yes Able to Write: Yes Smoking Status: Never Smoked Hx Chewing Tobacco Use: No Alcohol Use: Never Any recreational drug use reported?: No Hx Substance Use Treatment: No Feels Threatened In Home Environment: No Feels Threatened In a Relationship: No Hx Physical Abuse: No Hx Emotional Abuse: No Hx Suspected Abuse: No General Exam - General Limitations: Complains of: no limitations Constitutional: Present: Well developed, Well nourished, well hydrated, Non-toxic - Head Head exam: Present: atraumatic, normocephalic, normal inspection - Eye Eye exam: Present: normal apperance, normal accomodation, EOMI Pupils: Present: PERRL - ENT ENT exam: Present: normal orophraynx, TMs clear w/ good light reflex, mucous membranes moist, No Nasal Discharge, normal external ear exam, Posterior Pharynx Non-erethemetous - Expanded ENT Exam Ear exam: Present: normal external inspection Nose: Absent: tender, drainage Mouth exam: Present: normal external inspection Teeth exam: Present: normal inspection Throat exam: uvula midline (enlarged but midline, no abscess formation) - Neck Neck exam: Present: full ROM, Supple. Absent: tenderness, meningismus, thyromegaly, Posterior Lymphadenopathy, Anterior Lymphadenopathy, midline deformity, anterior neck swelling, carotid bruit, tracheal deviation - Respiratory Respiratory exam: Present: lungs clear equal bilaterally. Absent: respiratory distress, wheezes, rales, rhonchi, accessory muscle use - Cardiovascular Cardiovascular Exam: Present: regular rate, normal rhythm, normal heart sounds. Absent: murmur, rubs, gallop, clicks - GI/Abdominal GI/Abdominal exam: Present: soft, non tender, normal bowel sounds. Absent: guarding, rebound, rigid, mass, bruit - Extremities Exam Extremities exam: Present: normal inspection, full ROM, neurovascularly intact - Back Exam Back exam: Present: normal inspection, full ROM. Absent: tenderness - Neurological Exam Neurological exam: Present: alert, oriented X3, CN II-XII intact - Expanded Neurological Exam Patient oriented to: Present: person, place, time Speech: Present: fluid speech - Psychiatric Psychiatric exam: Present: normal affect, normal mood - Skin Skin Color: Present: Normal, [place] Skin exam: Present: warm, dry - Expanded Skin Exam Type of lesion: Absent: rash - Vital Signs Vital Signs 07/06/17 15:48 Temperature 99.1 F Pulse Rate [ 85 Pulse Ox] Respiratory 18 Rate Blood Pressure 160/93 H [Left Arm] O2 Sat by Pulse 98 Oximetry(%) Sore Throat MDM - Lab Data Lab Results 07/06/17 Range/Units 15:51 Group A Strep Rapid Negative (Negative) Orders: Amox Tr/Potassium Clavulanate [Augmentin 875-125 Tablet] 1 tab PO BID #20 tablet 07/06/17 [Rx] Hydrocodone Bit/Acetaminophen [[place] 5/325 mg Tablet] 1 tab PO Q6H PRN #6 tablet 07/06/17 [Rx] Ibuprofen 800 mg PO TID PRN #30 tablet 07/06/17 [Rx] Medications Discontinued Medications Dexamethasone Sodium Phosphate (Decadron 10 Mg/Ml Injection) 10 mg PO STAT STA Stop: 07/06/17 15:49 Last Admin: 07/06/17 15:58 Dose: 10 mg Labs 07/06/17 15:48 Dexamethasone Sod Phosph [Decadron 10 mg/ml Injection] 10 mg PO STAT STA 07/06/17 15:51 Rapid Strep A [IMM] Stat 07/06/17 16:35 Upper Respiratory Culture [MIC2] Stat - Differential Diagnosis Sore throat DD: Considered: Epiglottitis, Streptococcal infection, Viral pharyngitis, Gonococcal pharyngitis, Vincent Angina, Hand,foot,mouth disease, Herpangina/coxsackie virus, Herpes simplex Type 1, Mononucleosis, Marvin's angina, Peritonsillar/retrop haryngeal abscess, Peritonsillar cellulitis, Diptheria, Other ED Discharge Summary - Discharge Data Clinical Impression: Uvulitis Condition: Good Disposition: 01 HOME, SELF-CARE Admit is Medically Necessary, Anticipated Stay >2 Midnights:: No Referrals: CATA PIERCE DO [Primary Care Provider] - Additional Instructions: FOLLOW UP WITH YOUR PCP OR THE BACK UP PHYSICIAN LISTED ON HOME GOING INSTRUCTIONS IF NOT FEELING BETTER IN 3 DAYS RETURN TO THE ED IF SYMPTOMS WORSEN OR ANY OTHER CONCERNS At least one of your blood pressure readings in the Emergency Department visit today were above 120/80. You need to follow up with your Primary Care Physician/Family Doctor within the next week about your blood pressure. 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 OARRS Report Reviewed: No Home Medications: Ambulatory Orders Medication Instructions Recorded Amox Tr/Potassium Clavulanate 1 tab PO BID #20 tablet 07/06/17 [Augmentin 875-125 Tablet] Hydrocodone Bit/Acetaminophen 1 tab PO Q6H PRN #6 tablet 07/06/17 [[place] 5/325 mg Tablet] Ibuprofen 800 mg PO TID PRN #30 tablet 07/06/17 Home medications and allergies reviewed: Yes Time Seen by Provider: 07/06/17 15:46 Patient seen by Midlevel: Independently - Consultation I saw and examined the patient: Yes Nurses Notes Reviewed and Agreed With?: Yes - Dictation Amendments/Documenta tion: Mama Document Only Electronically Generated By: HELGA PRINGLE PA-C Generated Date/Time: 07/06/17 1636 Electronically Signed By: HELGA PRINGLE PA-C Signed Date/Time 07/06/17 2104 Co Signed Electronically By: Co Signed Date/Time: 07/12/17 0547 07/12/17 0547 CC: CATA PIERCE DO Normal [facility] LUPRCon 07-06-2017 LUPRC Upper Respiratory Cult = Final reportPerformed at: [facility] [id number] Director: Fernie Martines PhD, Phone: [phone] D REPORT: Previous result was SEE BELOW at 13:05 on 07/08/17Upper Resp Result 1 = CommentRoutine respiratory floraPerformed at: [facility] [id number] Director: Fernie Martines PhD, Phone: [phone] Resp Result 2 = NPUpper Resp Result 3 = NPUpper Resp Result 4 = NPAntimicrobial Suscept = NPSource Upper Respiratory = throat Normal [facility] Comment on above: Performed By: #### M IC2 ####[address] [address] Rapid Strep Aon 07-06-2017 Rapid strep test Negative Normal Negative [facility] Comment on above: Result Comment: Thro at culture reflexed. Performed By: #### S TREP ####[address] [address] Vital Signs Date Time Vital Sign Value Performing Clinician Selma rosenthal 11-03-2023 10:35-0400 Body temperature 98.3 [degF] [facility] 11-03-2023 10:35-0400 Diastolic blood pressure 69 mm[Hg] [facility] 11-03-2023 10:35-0400 Heart rate 70 /min [facility] 11-03-2023 10:35-0400 Respiratory rate 16 /min [facility] 11-03-2023 10:35-0400 SaO2% (BldA) [Mass fraction] 98 % [facility] 11-03-2023 10:35-0400 Systolic blood pressure 119 mm[Hg] [facility] 11-03-2023 09:43-0400 Body height 187.96 cm [facility] 11-03-2023 09:43-0400 Body mass index (BMI) [Ratio] 27.7 kg/m2 [facility] 11-03-2023 09:43-0400 Body weight 98 kg [facility] 09-29-2023 11:16-0500 Body temperature 97.9 [degF] Sandra Praisler-[employer] WORKER.SLACK COOPER Work Phone: [facility] 09-29-2023 11:16-0500 Body weight 97.9 kg Sandra Praisler-Wood PROPAGATION WORKER.SLACK COOPER Work Phone: [facility] 09-29-2023 11:16-0500 Diastolic blood pressure 82 mm[Hg] Sandra Praisler-Wood PROPAGATION WORKER.SLACK COOPER Work Phone: [facility] 09-29-2023 11:16-0500 Heart rate 64 /min Sandra Praisler-Wood PROPAGATION WORKER.SLACK COOPER Work Phone: [facility] 09-29-2023 11:16-0500 Respiratory rate 18 /min Sandra Praisler-Wood PROPAGATION WORKER.SLACK COOPER Work Phone: [facility] 09-29-2023 11:16-0500 SaO2% (BldA) [Mass fraction] 97 % Sandra Praisler-Wood PROPAGATION WORKER.SLACK COOPER Work Phone: [facility] 09-29-2023 11:16-0500 Systolic blood pressure 127 mm[Hg] Sandra Praisler-Wood PROPAGATION WORKER.SLACK COOPER Work Phone: [facility] 12-09-2021 17:52-0400 Body temperature 98.6 [degF] Rio Velásquez MD Work Phone: [facility] 12-09-2021 17:52-0400 Body weight 97.7 kg Rio Velásquez MD Work Phone: [facility] 12-09-2021 17:52-0400 Diastolic blood pressure 64 mm[Hg] Rio Velásquez MD Work Phone: [facility] 12-09-2021 17:52-0400 Heart rate 66 /min Rio Velásquez MD Work Phone: [facility] 12-09-2021 17:52-0400 Respiratory rate 16 /min Rio Velásquez MD Work Phone: [facility] 12-09-2021 17:52-0400 SaO2% (BldA) [Mass fraction] 99 % Rio Velásquez MD Work Phone: [facility] 12-09-2021 17:52-0400 Systolic blood pressure 112 mm[Hg] Rio Velásquez MD Work Phone: [facility] Encounters Encounter Date Encounter Type Care Provider Facility Start: 01-18-2025 ambulatory [facility] Facility:[facility] Start: 10-24-2024 Encounter for genera l adult medical examination without abnormal findings Fitz Karen [facility] Start: 10-11-2024 End: 10-11-2024 ambulatory Fitz Jones MD Work Phone: [facility] Work Phone: Start: 10-11-2024 End: 10-11-[address] Fitz Jones MD -Laboratory Work Phone: Start: 10-11-2024 End: 10-11-2024 [facility] Start: 10-04-2024 End: 10-04-2024 ambulatory Fitz Jones MD Work Phone: [facility] Work Phone: Start: 10-04-2024 End: 10-04-[address] Fitz Jones MD -Ultrasound, [facility] Work Phone: Start: 10-04-2024 End: 10-04-2024 ambulatory Fitz Karen Facility:[facility] Start: 07-19-2024 End: 07-19-[address] Fitz Jones MD -Laboratory Work Phone: Start: 07-19-2024 End: 07-19-2024 ambulatory [facility] Facility:[facility] Start: 11-03-2023 End: 11-03-2023 ambulatory Facility:[facility] Start: 11-03-2023 End: 11-03-2023 Emergency department patient visit [facility]Emergency Department Work Phone: Start: 11-03-2023 End: 11-03-2023 Patient encounter procedure Claudia Brandt SANTHOSH.SLACK COOPER Work Phone: [facility] Comment on above: Vision changes (Prim angelina Dx); Orbital cellulitis on right Start: 09-29-2023 End: 09-29-2023 ambulatory Facility:[facility] Start: 09-29-2023 End: 09-29-2023 Patient encounter procedure Sandra Almazan PROPAGATION WORKER.SLACK COOPER Work Phone: [facility] Comment on above: Bacterial sinusitis (Primary Dx); Bacterial conjunctivitis Start: 01-02-2022 Telephone encounter Rio King MD Work Phone: [facility] Comment on above: Prescription Request Start: 12-09-2021 End: 12-09-2021 Patient encounter procedure Rio Velásquez MD Work Phone: [facility] Comment on above: Contact dermatitis d ue to plant (Primary Dx) Start: 07-06-2017 End: 07-06-2017 Emergency department patient visit [facility] Facility:[facility] Procedures Date Procedure Procedure Detail Performing Clinician Start: 10-04-2024 Ultrasonography of abdomen Fitz Jones MD Work Phone: Plan of Treatment Date Care Activity Detail Author Start: 03-23-2024 Influenza vaccination Influenza Vaccine (Season Ended) [facility] Start: 11-03-2023 [facility] Start: 07-23-2023 Behavioral Health Screening Behavioral Health Screening [facility] Start: 07-23-2023 Depression Assessment Depression Assessment [facility] Start: 03-23-2023 Covid-19 Vaccine ( season) Covid-19 Vaccine ( season) [facility] Start: 03-23-2023 Influenza vaccination Influenza Vaccine (#1) [facility] Start: 09-01-2022 Influenza vaccination INFLUENZA (Season Ended) [facility] Start: 01-28-2020 Urine microalbumin profile DTaP,Tdap,Td Vaccine (7 - Td or Tdap) [facility] Start: 2016 Urine microalbumin profile DTAP,TDAP,TD (1 - Tdap) [facility] Start: 2015 HEPATITIS C SCREENING HEPATITIS C SCREENING [facility] Start: 2015 Hepatitis C screening Hepatitis C Screening [facility] Start: 2015 HIV SCREENING HIV SCREENING [facility] Start: 2015 HIV screening HIV Screening [facility] Start: 2011 PEDS TO ADULT TRANSITION ANNUAL ASSESSMENT PEDS TO ADULT TRANSITION ANNUAL ASSESSMENT [facility] Start: 2009 Adult depression screening assessment DEPRESSION SCREENING [facility] Start: 2009 PEDS TO ADULT TRANSITION INITIAL DISCUSSION PEDS TO ADULT TRANSITION INITIAL DISCUSSION [facility] Start: 2008 HPV VACCINE (1 - Male 2-dose series) HPV VACCINE (1 - Male 2-dose series) [facility] Start: 2007 MENINGOCOCCAL B: Consider based on risk (1 of 2 - Risk Bexsero 2-dose series) MENINGOCOCCAL B: Consider based on risk (1 of 2 - Risk Bexsero 2-dose series) [facility] Start: 2002 COVID-19 VACCINE (#1) COVID-19 VACCINE (#1) [facility] Patient Education ED Periorbital Cellulitis [facility] Work Phone: Patient referral [facility] Work Phone: Serum testosterone measurement [facility] Testosterone Free [Mass/volume] in Serum or Plasma [facility] Testosterone measurement [facility] Immunizations Immunization Date Immunization Notes Care Provider Fa cility 04-09-2013 influenza virus vacc ine, unspecified formulation Sandra Almazan APRN.MANI Work Phone: [facility] Payers Date Payer Category Payer Self-pay 2024 Unknown [id number] Self-pay SELF PAY ER DEPOSIT [id number] Unknown [id number] Unknown [id number] Unknown [id number] Unknown [id number] Unknown [id number] Social History Date Type Detail Facility Start: 12-09-2021 End: 11-03-2023 Tobacco smoking status NHIS Never smoked tobacco [facility] Start: 12-09-2021 End: 09-29-2023 Tobacco use and exposure Smokeless tobacco non-user [facility] Start: 12-09-2021 End: 09-29-2023 Alcohol intake Current drinker of alcohol (finding) [facility] Start: 12-09-2021 History SDOH Alcohol Comment social [facility] Start: 1995 Sex Assigned At Not on file C [facility] Start: 11-29-2021 End: 12-09-2021 Exposure to SARS-CoV-2 (event) Not sure [facility] Start: 09-29-2023 End: 10-01-2023 History of Social function [facility] Start: 09-29-2023 End: 10-01-2023 Tobacco use panel [facility] Start: 11-03-2023 Tobacco smoking stat us NHIS Unknown if ever smoked [facility] Start: 1995 Sex Assigned At Male W [facility] National Score (1-100), lower number is lower risk [address] [facility] Start: 10-14-2024 End: 10-17-2024 Sex Male (finding) [facility] Clinical Notes 12-09-2021 to 10-04-2024 Claudia Brandt APRN.[facility] - 11/03/2023 9:39 AM EDTPSandra Lance APRN.SLACK COOPER - 09/29/2023 11:32 AM ESTPatient Kristen Velásquez MD - 12/09/2021 5:54 PM EDT Note Date & Type Note Facility 10-04-2024 Radiology Diagnostic study note [facility] Imaging Services [address] [place] [address] Abdomen Limited MR#: [id number] Acct: [id number] Name: JOHN TOURE Rep #: [id number] : 1995 M 29 From: Isai Wood DO PCP: Dr. Fitz Jones MD Status: REG CL I Study:Abdomen Limited Date of Exam: 09/20 12/14 Exam# [id number] Ordering Dr: Caterina Jones MD PROCEDURE: Right upper quadrant ultrasound REASON FOR EXAM: Elevated liver enzymes COMPARISON: None FINDINGS: Liver: Diffuse increased hepatic echogenicity most consistent with steatosis. Gallbladder: No stones, sludge, wall thickening or tenderness. Common bile duct: Normal caliber common bile duct measuring 3 mm. . Pancreas: Visualized portions are sonographically unremarkable. Visualized portions of the right kidney are unremarkable. No right upper quadrant ascites. US/Abdomen Limited IMPRESSION: Hepatic steatosis. Reading Location: [facility] CC: Dr. Fitz Jones MD ~ Doctor Chiropractic: Signed [facility] 11-03-2023 Note HNO ID: [id number] Author: CLAUDIA BRANDT APRN.MANI Service: ? Author Type: Nurse Practitioner Type: Progress Notes Filed: 11/03/2023 09:40 Note Text: Patient triaged at [facility]. Here today with right eye infection, pain, slight fever. Reports change in color vision of infected eye. I will refer to ER [facility] 11-03-2023 History of Presen t illness Narrative Patient triaged at [facility]. Here today with right eye infection, pain, slight fever. Reports change in color vision of infected eye. I will refer to ER documented in this encounter [facility] 09-29-2023 Note HNO ID: [id number] Author: SANDRA ALMAZAN APRN.SLACK COOPER Service: ? Author Type: Nurse Practitioner Type: Progress Notes Filed: 09/29/2023 11:46 Note Text: Subjective Eye Problem Associated symptoms include congestion. Pertinent negatives include no chest pain, chills, coughing, fever, headaches, myalgias, rash or sore throat. John Toure is a 28 year old male who presents with sinus congestion and drainage and sinus pressure x 1 week; this morning woke up with left eye swollen and drainage from the eye. He denies eye pain. States the eye is red and itchy. Denies foreign body sensation. Drainage from eye is yellow, vision gets blurred when there is a lot of drainage, otherwise vision is normal. No fever or sore throat. Review of Systems Constitutional: Negative for chills and fever. HENT: Positive for congestion and sinus pain. Negative for ear pain and sore throat. Eyes: Positive for blurred vision, discharge and redness. Negative for double vision, photophobia and pain. Respiratory: Negative for cough. Cardiovascular: Negative for chest pain. Musculoskeletal: Negative for myalgias. Skin: Negative for rash. Neurological: Negative for headaches. BP 127/82 Pulse 64 Temp 36.6 ?C (97.9 ?F) Resp 18 Wt 97.9 kg (215 lb 13.3 oz) SpO2 97% PAST MEDICAL HISTORY Diagnosis Date NEGATIVE MEDICAL HISTORY PAST SURGICAL HISTORY Procedure Laterality Date TYMPANOSTOMY Bilateral childhood TM tubes ALLERGIES Patient has no known allergies. MEDICATIONS multivit,thx,calcium,iron,mins (MULTIVITAMIN AND MINERAL ORAL) Take by mouth. amoxicillin-clavulanate potassium (AUGMENTIN) 875-125 mg per tablet Take 1 tablet by mouth two times a day for 7 days. trimethoprim-polymyxin (POLYTRIM) 10,000 unit- 1 mg/mL ophthalmic solution Use 1 Drop in the left eye four times daily for 7 days. No family history on file. Social History Tobacco Use Smoking status: Never Smokeless tobacco: Never Substance Use Topics Alcohol use: Yes Comment: social Drug use: Never Objective Physical Exam Vitals and nursing note reviewed. Constitutional: General: He is not in acute distress. Appearance: Normal appearance. HENT: Right Ear: Tympanic membrane, ear canal and external ear normal. Left Ear: Tympanic membrane, ear canal and external ear normal. Nose: Nasal tenderness, mucosal edema, congestion and rhinorrhea present. Mouth/Throat: Pharynx: Uvula midline. No oropharyngeal exudate or posterior oropharyngeal erythema. Eyes: General: Vision grossly intact. Gaze aligned appropriately. Left eye: Discharge present.No hordeolum. Conjunctiva/sclera: Right eye: Right conjunctiva is not injected. No chemosis, exudate or hemorrhage. Left eye: Left conjunctiva is injected. No chemosis, exudate or hemorrhage. Cardiovascular: Rate and Rhythm: Normal rate and regular rhythm. Heart sounds: Normal heart sounds. Pulmonary: Effort: Pulmonary effort is normal. No respiratory distress. Breath sounds: Normal breath sounds. No wheezing or rales. Musculoskeletal: Cervical back: Neck supple. Lymphadenopathy: Cervical: No cervical adenopathy. Skin: General: Skin is warm and dry. Findings: No erythema or rash. Neurological: Mental Status: He is alert. ASSESSMENT/PLAN: 1. Bacterial sinusitis - ICD9: 473.9, 041.9, ICD10: J32.9, B96.89 (primary diagnosis) - Will begin treatment with as per antibiotic as written, see orders - AMOXICILLIN 875 MG-POTASSIUM CLAVULANATE 125 MG TABLET 2. Bacterial conjunctivitis - ICD9: 372.39, 041.9, ICD10: H10.9 - see medication orders - course and contagiousness issues discussed, including hand washing. - call if high fever, development of periorbital redness or swelling, eye pain, visual changes, concerns or if symptoms persist. - POLYMYXIN B SULFATE 10,000 UNIT-TRIMETHOPRIM 1 MG/ML EYE DROPS - Follow-up with your PCP or eye doctor in 2 days if symptoms have not improved or sooner if symptoms worsen - Discussed red flags and need for immediate medical evaluation if any occur. - Discussed supportive care treatment with fluids, rest and analgesia. - Discussed expected course of illness Sandra Almazan APRN.[facility] 09-29-2023 History of Presen t illness Narrative Images from the original note were not included. Subjective Eye Problem Associated symptoms include congestion. Pertinent negatives include no chest pain, chills, coughing, fever, headaches, myalgias, rash or sore throat. John Toure is a 28 year old male who presents with sinus congestion and drainage and sinus pressure x 1 week; this morning woke up with left eye swollen and drainage from the eye. He denies eye pain. States the eye is red and itchy. Denies foreign body sensation. Drainage from eye is yellow, vision gets blurred when there is a lot of drainage, otherwise vision is normal. No fever or sore throat. Review of Systems Constitutional: Negative for chills and fever. HENT: Positive for congestion and sinus pain. Negative for ear pain and sore throat. Eyes: Positive for blurred vision, discharge and redness. Negative for double vision, photophobia and pain. Respiratory: Negative for cough. Cardiovascular: Negative for chest pain. Musculoskeletal: Negative for myalgias. Skin: Negative for rash. Neurological: Negative for headaches. BP 127/82 Pulse 64 Temp 36.6 C (97.9 F) Resp 18 Wt 97.9 kg (215 lb 13.3 oz) SpO2 97% PAST MEDICAL HISTORY Diagnosis Date NEGATIVE MEDICAL HISTORY PAST SURGICAL HISTORY Procedure Laterality Date TYMPANOSTOMY Bilateral childhood TM tubes ALLERGIES Patient has no known allergies. MEDICATIONS multivit,thx,calcium,iron,mins (MULTIVITAMIN AND MINERAL ORAL) Take by mouth. amoxicillin-clavulanate potassium (AUGMENTIN) 875-125 mg per tablet Take 1 tablet by mouth two times a day for 7 days. trimethoprim-polymyxin (POLYTRIM) 10,000 unit- 1 mg/mL ophthalmic solution Use 1 Drop in the left eye four times daily for 7 days. No family history on file. Social History Tobacco Use Smoking status: Never Smokeless tobacco: Never Substance Use Topics Alcohol use: Yes Comment: social Drug use: Never Objective Physical Exam Vitals and nursing note reviewed. Constitutional: General: He is not in acute distress. Appearance: Normal appearance. HENT: Right Ear: Tympanic membrane, ear canal and external ear normal. Left Ear: Tympanic membrane, ear canal and external ear normal. Nose: Nasal tenderness, mucosal edema, congestion and rhinorrhea present. Mouth/Throat: Pharynx: Uvula midline. No oropharyngeal exudate or posterior oropharyngeal erythema. Eyes: General: Vision grossly intact. Gaze aligned appropriately. Left eye: Discharge present.No hordeolum. Conjunctiva/sclera: Right eye: Right conjunctiva is not injected. No chemosis, exudate or hemorrhage. Left eye: Left conjunctiva is injected. No chemosis, exudate or hemorrhage. Cardiovascular: Rate and Rhythm: Normal rate and regular rhythm. Heart sounds: Normal heart sounds. Pulmonary: Effort: Pulmonary effort is normal. No respiratory distress. Breath sounds: Normal breath sounds. No wheezing or rales. Musculoskeletal: Cervical back: Neck supple. Lymphadenopathy: Cervical: No cervical adenopathy. Skin: General: Skin is warm and dry. Findings: No erythema or rash. Neurological: Mental Status: He is alert. ASSESSMENT/PLAN: 1. Bacterial sinusitis - ICD9: 473.9, 041.9, ICD10: J32.9, B96.89 (primary diagnosis) - Will begin treatment with as per antibiotic as written, see orders - AMOXICILLIN 875 MG-POTASSIUM CLAVULANATE 125 MG TABLET 2. Bacterial conjunctivitis - ICD9: 372.39, 041.9, ICD10: H10.9 - see medication orders - course and contagiousness issues discussed, including hand washing. - call if high fever, development of periorbital redness or swelling, eye pain, visual changes, concerns or if symptoms persist. - POLYMYXIN B SULFATE 10,000 UNIT-TRIMETHOPRIM 1 MG/ML EYE DROPS - Follow-up with your PCP or eye doctor in 2 days if symptoms have not improved or sooner if symptoms worsen - Discussed red flags and need for immediate medical evaluation if any occur. - Discussed supportive care treatment with fluids, rest and analgesia. - Discussed expected course of illness Sandra Almazan APRN.MANI documented in this encounter [facility] 09-29-2023 Instructions Sandra Almazan APRN.SLACK COOPER - 09/29/2023 11:32 AM EST ASSESSMENT/PLAN: 1. Bacterial sinusitis - ICD9: 473.9, 041.9, ICD10: J32.9, B96.89 (primary diagnosis) - Will begin treatment with as per antibiotic as written, see orders - AMOXICILLIN 875 MG-POTASSIUM CLAVULANATE 125 MG TABLET 2. Bacterial conjunctivitis - ICD9: 372.39, 041.9, ICD10: H10.9 - see medication orders - course and contagiousness issues discussed, including hand washing. - call if high fever, development of periorbital redness or swelling, eye pain, visual changes, concerns or if symptoms persist. - POLYMYXIN B SULFATE 10,000 UNIT-TRIMETHOPRIM 1 MG/ML EYE DROPS - Follow-up with your PCP or eye doctor in 2 days if symptoms have not improved or sooner if symptoms worsen - Discussed red flags and need for immediate medical evaluation if any occur. - Discussed supportive care treatment with fluids, rest and analgesia. - Discussed expected course of illness Sandra Almazan APRN.SLACK COOPER documented in this encounter [facility] 12-09-2021 History of Presen t illness Narrative Patient presents with: Rash: Pt reported possible poison sri face, arms upper torso x3 days HPI: Rash: Location: Face, arms Duration: 3 days Pruritis: Yes Pain: No Change: Spreading and worsening Bleeding/ulceration/blister/pus tule: Seeping clear-yellow fluid Contacts with rash: No Exposure: No new soaps, detergents, fabric softeners, lotions. Outdoor exposure: Cutting a tree the day before the rash started. Change in medications: No. Recent illness: No. Treatment: ivarest PAST MEDICAL HISTORY Diagnosis Date NEGATIVE MEDICAL HISTORY PAST SURGICAL HISTORY Procedure Laterality Date TYMPANOSTOMY Bilateral childhood TM tubes MEDICATIONS: multivit,thx,calcium,iron,mins (MULTIVITAMIN AND MINERAL ORAL) Take by mouth. ALLERGIES: ALLERGIES Not on File VITALS: BP 112/64 Pulse 66 Temp 37 C (98.6 F) Resp 16 Wt 97.7 kg (215 lb 6.4 oz) SpO2 99% PHYSICAL EXAM: GEN: pleasant, no acute distress, alert SKIN: Erythematous slightly indurated rash with scattered clusters of vesicles on the arms and sides of the face. Yue fluid seeping from right elbow rash. ASSESSMENT/PLAN: 1. Contact dermatitis due to plant - ICD9: 692.6, ICD10: L25.5 - Oral Steriod tx -Prednisone taper - Anti itch therapy of Oral Benydryl recommended prn - PREDNISONE 10 MG TABLET Potential steroid side effects discussed including: Increased hunger, fluid retention, increased energy, sleep disturbance, mood change, elevated sugar levels. Seek re-evaluation for signs of infection: increasing redness, pain, swelling, purulent drainage, or fever/malaise. Rio Velásquez MD documented in this encounter [facility] Discharge summary Note Date/Time November 03, 2023 10:27am [facility] Medical Records Department [address] [place] [address] Emergency Department Summary 11/03/23 MR#: [id number] Acct: [id number] Name: JOHN TOURE Rep #:[id number] : 1995 28 From: Adrián Newton MD PCP: Care Physician,No Primary Status :REG ER Location: ED HPI History of Present Illness Chief Complaint: Eye Problem Associated Symptoms History of injury: No Narrative Narrative: 28-year-old male presents from urgent care with his fianc?e for right eyelid swelling when he awoke this morning. They relate history that he has had problems with conjunctivitis and reported periorbital cellulitis over the last few weeks. First it started in his left eye, then it was in his right eye. He has been on amoxicillin twice. Once was from urgent care, and there was leftover amoxicillin when it infected his right eye. He denies any fevers or chills, no loss of vision but he has had a bloodshot eye and right eye redness with a small amount of discharge. He has no pain with movement of his eye, no loss of vision. This is the first time that his right upper eyelid and somewhatin his lower eyelid has been swollen. He awoke this morning with his eyes swollen shut. [facility] Home Medications amoxicillin 875 mg-potassium clavulanate 125 mg tablet 1 tab PO BID #20 tabs 11/03/23 [Rx Last Taken Unknown] Allergy/AdvReac Type Severity Reaction Status Date / Time No Known Allergies Allergy Verified 11/03/23 09:44 Social History Smoking Status: Never smoker ROS ROS ED ROS Narrative Constitutional: No fever, no chills. HEENT: No sore throat. No neck pain. No loss of vision. No rhinorrhea. Righteyelid swelling, upper greater than lower. Positive bloodshot eye. Cardiovascular: No chest pain. No palpitations. No pedal edema. Respiratory: No cough, no shortness of breath. Abdominal: No abdominal pain. No nausea. No vomiting. Genitourinary: No dysuria. No hematuria. Musculoskeletal: No myalgias. No arthralgias. Neurologic: No headaches. No dizziness. No lightheadedness. Skin: No rash. No change in color. Psychiatric: No depression. No anxiety. EXAM Physical Exam Narrative Exam Narrative: Focused physical exam. Afebrile. Nontoxic-appearing. Vital signs noted. HEENT: Normocephalic. Atraumatic. PERRL, EOMI. positive periorbital edema withright upper eyelid swelling and minimal swelling of right lower lid. No pain with movement of right eye/extraocular muscles. Positive conjunctival injection. No exudate. Neck soft and supple. No point tenderness or step off. Const Vital Signs: 11/03/23 09:43 11/03/23 09:45 Temperature 98 F 98 F Temperature Source Temporal Oral Pulse Rate 72 72 Respiratory Rate 16 16 Blood Pressure 129/90 H 129/78 H Blood Pressure Mean 103 95 Pulse Ox 100 98 Oxygen Delivery Method Room Air Room Air MDM MDM MDM Narrative Medical decision making narrative: In the differential diagnosis is periorbital cellulitis versus stye versus orbital cellulitis. I have low suspicion for orbital cellulitis as he has no pain with extraocular movement and there is no entrapment. I do feel that his edema is secondary to inflammation. He will be started on Augmentin for his recurrent periorbital cellulitis. I do not feel that he requires laboratory work or CT imaging. He was referred to the staff development coordinator rn on-call and a prescription for Augmentin was written for the next 10 days to take twice a day. He will apply warm compresses as needed. I feel he can be discharged safely home with follow-up. Return instructions to the emergency department were reviewed. Disposition is discharged home in stable condition. History & Record Review Discussion w/independent historian: Patient and Significant other Discharge Plan Triage Chief Complaint: Eye Problem ED Provider: Adrián Newton Dx/Rx/DC Orders Clinical Impression: Swelling of right eyelid, Periorbital cellulitis of right eye Instructions: ED Periorbital Cellulitis Prescriptions: New amoxicillin-pot clavulanate 875-125 mg tablet 1 tab PO BID Qty: 20 0RF Referrals: Dwaine Manriquez MD [Med Staff - Active Staff] - As soon as possible Breonna Rebolledo MD [Med Staff - Active Staff] - 3-5 Days if not improving Disposition Disposition: Home, Self Care What to do if you have Problems For any increased pain, shortness of breath, bleeding, nausea or vomiting, chestpain, or any unexpected problems, contact your Primary Care Provider. Call [facility] ([phone]) or report to the closest Emergency Room. Call 911 if necessary. 11/03/23 1027 <Electronically signed by Adrián Newton MD> Cosigner Signature (if applicable): CC: No Primary Care Physician ~ Signed [facility] Work Phone: Evaluation note* Diagnosis Contact dermatitis due to plant- Primary Contact dermatitis and other eczema due to plants (except food) documented in this encounter [facility] note* Diagnosis Bacterial sinusitis- Primary Unspecified sinusitis (chronic) Bacterial conjunctivitis Other conjunctivitis documented in this encounter [facility] noteNo assessment information availableWSelect [facility] [place] Work Phone: Evaluation note* Diagnosis Vision changes- Primary Unspecified visual disturbance Orbital cellulitis on right Orbital cellulitis [facility] (n[facility]ative)No reason for referral information availableWSelect [facility] Work Phone: Summary Purpose Family History No Family History Records FoundNo Family History Records FoundNo Family History Records Found Advance Directives No Advanced Directives Records Found Advance Directive Response Recorded Date/ Time Living Will No November 03, 2023 10:24am Power of Personalized Living Manager No November 02 10:24am Chief Complaint and Reason for Visit Chief Complaint CELLULITIS Chief Complaint Admit Date Abnormal levels of other serum enzymes [facility] 2024 9:14am Additional Source Comments (unrecognized sect ion and content) No Status Records FoundNo Status Records FoundNo Status Records Found INFORMATION SOURCE (unrecogn ized section and content) DATE CREATED AUTHOR 01/15/2018 [facility] DATE CREATED AUTHOR AUTHOR'S ORGANIZ ATION 11/04/2023 [facility] DATE CREATED AUTHOR AUTHOR'S ORGANIZ ATION 01/18/2025 [facility] Source Comments (unrecognize d section and content) In the event this informatio n is protected by the Federal Confidentiality of Alcohol and Drug Abuse Patient Records regulations: The Federal rules restrict any use of the information to criminally investigate or prosecute any alcohol or drug abuse patient.[facility] the event this information is protected by the Federal Confidentiality of Alcohol and Drug Abuse Patient Records regulations: The Federal rules restrict any use of the information to criminally investigate or prosecute any alcohol or drug abuse patient.[facility] the event this information is protected by the Federal Confidentiality of Alcohol and Drug Abuse Patient Records regulations: The Federal rules restrict any use of the information to criminally investigate or prosecute any alcohol or drug abuse patient.[facility] Center[facility] the event this information is protected by the Federal Confidentiality of Alcohol and Drug Abuse Patient Records regulations: The Federal rules restrict any use of the information to criminally investigate or prosecute any alcohol or drug abuse patient.[facility] Reason for Visit (unrecogniz ed section and content) Reason Comments Rash Pt reported possible poison sri face, arms upper torso x3 days Specialty Diagnoses / Procedures Referred By Contac t Referred To Contact Family Practice / [facility] Diagnoses possible poison sri all over Procedures [facility]ARE Self Rio Velásquez MD [address] [place] [address] Referral ID Status Reason Start Date Expiration Date Visits Requested Visits Authorized [id number] Pending Review Financial Clearance Required - Self Pay 12/09/2021 03/09/2022 1 1 Reason Comments Prescription Request Reason Comments Eye Problem Left eye swelling, p ressure and scratchy since 4 am Specialty Diagnoses / Procedures Referred By Contac t Referred To Contact Internal Medicine / [facility] Diagnoses R eye swollen shut Procedures EST SAME DAY Ana Lee V, MD [address] [place] [address] [facility] [address] [place] [address] Referral ID Status Reason Start Date Expiration Date Visits Requested Visits Authorized [id number] Pending Review Financial Clearance Required - Self Pay 11/03/2023 02/01/2024 1 1 Care Teams (unrecognized sec tion and content) Team Status: Active Member Role Status Dates No Primary Care Physician Primary Care Provider Active Team Status: Inactive Member Role Status Alexys Newton MD Emergency Provider Active No Primary Care Physician Primary Care Provider Active Team Status: Active Member Role Status Alexys Jones MD Primary Care Provider Active Team Status: Inactive Member Role Status Alexys Jones MD Primary Care Provider Active St art: July 19, 2024 End: July 19, 2024 Fitz Jones MD Attending Provider Active Start : July 19, 2024 End: July 19, 2024 Fitz Jones MD Referring Provider Active Start : July 19, 2024 End: July 19, 2024 Team Status: Inactive Member Role Status Alexys Jones MD Primary Care Provider Active St art: October 04, 2024 End: October 04, 2024 Fitz Jones MD Attending Provider Active Start : October 04, 2024 End: October 04, 2024 Fitz Jones MD Referring Provider Active Start : October 04, 2024 End: October 04, 2024 Team Status: Active Member Role Status Alexys Jones MD Primary Care Provider Active St art: October 11, 2024 Fitz Jones MD Attending Provider Active Start : October 11, 2024 Fitz Jones MD Referring Provider Active Start : October 11, 2024 Team Status: Inactive Member Role Status Alexys Jones MD Primary Care Provider Active St art: October 11, 2024 End: October 11, 2024 Fitz Jones MD Attending Provider Active Start : October 11, 2024 End: October 11, 2024 Fitz Jones MD Referring Provider Active Start : October 11, 2024 End: October 11, 2024 Goals (unrecognized section and content) Goals may be documented in a n alternate sectionGoals may be documented in an alternate sectionGoals may be documented in an alternate section FOR RECORDS PERTAINING TO PATIENTS WHO ARE OR HAVE BEEN ENROLLED IN A CHEMICAL DEPENDENCY/SUBSTANCEABUSE PROGRAM, SOME INFORMATION MAY BE OMITTED. This clinical summary was aggregated from multiple sources. Caution should be exercised in using it in the provision of clinical care. This summary normalizes information from multiple sources, and as a consequence, information in this document may materially change the coding, format and clinical context of patient data. In addition, data may be omitted in some cases. CLINICAL DECISIONS SHOULD BE BASED ON THE PRIMARY CLINICAL RECORDS. [facility] [employer] provides no warranty or guarantee of the accuracy or completeness of information in this document.
--- NOTE | 2025-01-18 22:10 | RAD_ITS ---
PROCEDURE: SHOULDER MIN 2 VIEWS 01/18/2025 REASON FOR EXAM: SHOULDER PAIN TECHNIQUE: SHOULDER MIN 2 VIEWS COMPARISON: No FINDINGS: No acute bone, soft tissue, or lung pathology. No degeneration. RAD/Shoulder min 2 Views IMPRESSION: No acute findings Reading Location: [place] [address]
--- NOTE | 2025-01-19 00:19 | EX.ED.UPPERE ---
HPI History of Present Illness Chief Complaint: Upper Extremity Injury Narrative Narrative: 29-year-old male who presented to the emergency department with the chief complaint of left shoulder pain. He states that his pain golf this week on Sunday and noted that when he went to hit the ball he developed left shoulder pain that persisted through the weekend. He states that he was going to try to go to urgent care tomorrow but is concerned that something serious may be going on therefore he came here to be further evaluated. Patient states that he did not take anything for pain control denies any direct trauma to the shoulder. PFSH PFSH Medical History no medical history Home Medications ?Medication ?Instructions ?Recorded ?Last Taken ?Type amoxicillin 875 mg-potassium 1 tab PO BID #20 tabs 11/03/23 Unknown Rx clavulanate 125 mg tablet Allergy/AdvReac Type Severity Reaction Status Date / Time No Known Allergies Allergy Verified 01/18/25 21:36 Family History no significant family his Surgical History H/O adenoidectomy Social History Smoking Status: Never smoker ROS ROS ED ROS Narrative Constitutional: Denies any fevers, chills, headache Cardiovascular: Denies chest pain Respiratory: Denies shortness of breath Neurological: Denies any numbness, weakness, tingling Musculoskeletal: Complains of left shoulder pain as noted above Skin: Denies any rashes or lesions EXAM Physical Exam Narrative Exam Narrative: General: Patient lying in bed rest comfortably did not appear to be in acute distress Head: Atraumatic, normocephalic Eyes: PERRL bilaterally, EOMI by, no conjunctival injection noted Neck: Soft, supple, trachea midline Cardiovascular: [ ] Respiratory: Clear to auscultation bilaterally no rales rhonchi or wheeze noted Abdomen: Soft, nondistended, nontender to palpation Musculoskeletal: Patient has full range of motion of his left shoulder, radial pulse +2/4 in the bilateral extremities, positive empty can test Extremities: +5/5 strength in the bilateral upper and lower extremities, Neurological: Patient follow commands knew that he was at [facility] years 2024. Sensation grossly intact in the axillary nerve distribution bilaterally, radial, ulnar and median nerve distributions bilaterally Skin: No rashes or lesions noted Const Vital Signs: 01/18/25 21:36 Temperature 97.4 F L Temperature Source Temporal Pulse Rate 71 Respiratory Rate 18 Blood Pressure 148/82 H Blood Pressure Mean 104 Pulse Ox 100 Oxygen Delivery Method Room Air MDM MDM MDM Narrative Medical decision making narrative: Patient is a 29-year-old male who presented to the emergency department the chief complaint of left shoulder pain after golfing this weekend. On the differential diagnosis clued but limited to labral tear, supraspinatus tear, dislocation, pathologic fracture. Once workup is obtained reviewed he will be reevaluated. Patient was ordered Toradol however he states that he does not want this at this point time. Patient's x-ray of his shoulder was reviewed by myself and official read per radiology still pending it has been a significant time the patient would like to go home at this point in time. I did not appreciate any acute fractures or dislocations. We discussed stain and waiting longer for the official read versus if anything is abnormal we will give him a call back in regards to this finding. He would like to go home at this point time he is requesting work note he is advised to rotate Tylenol and ibuprofen [id number] and follow-up with Dr. Padilla in the outpatient setting. He is encouraged return with worsening symptoms and concerns. He is agreeable this plan as well as significant other bedside all question concerns answered he is discharged home in stable condition Discharge Plan Triage Chief Complaint: Upper Extremity Injury ED Provider: Perez Mcclellan Dx/Rx/DC Orders Clinical Impression: Left shoulder pain Prescriptions: No Action amoxicillin-pot clavulanate 875-125 mg tablet 1 tab PO BID Qty: 20 0RF Primary Care Provider: Fitz Jones Referrals: Fitz Jones MD [Primary Care Provider] - Reed Padilla MD [Med Staff - Active Staff] - Activity Restrictions/Additional Instructions: Your x-ray did not show any acute fractures or dislocations. Follow-up with Dr. Padilla in the outpatient setting rotate Tylenol and I Profen [id number] when you do this he can take something every 3 hours max dose of Tylenol 4000 mg in 24 hours. Max dose of ibuprofen 3200 mg in 24 hours. Return with worsening symptoms or other concerns Print Language: Spanish Disposition Disposition: Home, Self Care
[2025-01-19 00:36] VITALS: BP 130/95; PULSE 74; RESP 16; TEMP 36.3; O2SAT 99
== END 2025-01-19 00:39 | disposition home or self-care (01) ==
PROVIDERS: Emergency Provider Emergency Medicine; PCP Family Medicine; Referring Provider Emergency Medicine; Visit Provider Emergency Medicine
DX: M25.512 Pain in left shoulder (principal); X58.XXXA Exposure to other specified factors, initial encounter; Y93.53 Activity, golf
CPT/HCPCS: 73030; 99282

== ENCOUNTER → 2025-01-22 | Outpatient (CLI) | payer OTHER, SELFPAY | END | disposition home or self-care (01) | LOC: OPMRI 09:20 | PROVIDERS: PCP Family Medicine; Referring Provider Family Medicine; Visit Provider Family Medicine | DX: M25.519 Pain in unspecified shoulder (principal) | CPT/HCPCS: 73221 ==

== ENCOUNTER 2025-02-25 08:32 | Day surgery (SDC) | payer OTHER, SELFPAY ==
[2025-02-25] VITALS (11 sets, daily range): BP systolic 129–154; BP diastolic 83–102; PULSE 70–89; RESP 16–18; TEMP 36–36.4; O2SAT 16–98; BMI 28.0
[2025-02-25] MEDS: Lactated Ringers 1,000 ML 15 ML IV (08:59)
--- OUTSIDE RECORDS SUMMARY | 2025-02-25 08:59 | XMS RPT_ITS | CCD ---
Author Organization [facility] CliniSynv Care Team Providers Care Linen Sorter Name Role Phone CATA PIERCE Unavailable Unavailable HELGA PRINGLE Unavailable Unavailable Unavailable Primary Care Provider Unavailabl e Unavailable Primary Care Provider Unavailabl e Karen LEE, Fitz Primary Care Provider [phone] Fitz Jones MD Attending Provider [phone] Fitz Jones MD Referring Provider [phone] Fitz Jones MD Primary Care Provider [phone] Fitz Jones MD Attending Provider [phone] Fitz Jones MD Referring Provider [phone] Dr. Perez Mcclellan DO Referring Provider Dr. Perez Mcclellan DO Emergency Provider Dr. Perez Mcclellan DO Attending Provider Nolan Henao MD Attending Provider [phone] Fitz Jones MD Primary Care Provider [phone] Fitz Jones MD Attending Provider [phone] Fitz Jones MD Referring Provider [phone] Karen, Chalon Attending Unavailable Karen, Chalon Referring Unavailable Karen, Chalon Primary Care Unavailable Karen, Chalon Attending Unavailable Karen, Chalon Referring Unavailable Karen, Chalon Primary Care Unavailable Nolan Henao Attending Unavailable Karen, Chalon Referring Unavailable Karen, Chalon Primary Care Unavailable Nolan Henao Attending Unavailable Karen, Chalon Referring Unavailable Karen, Chalon Primary Care Unavailable Karen, Chalon Attending Unavailable Karen, Chalon Referring Unavailable Karen, Chalon Primary Care Unavailable Karen, Chalon Attending Unavailable Karen, Chalon Referring Unavailable Karen, Chalon Primary Care Unavailable Karen, Chalon Primary Care Unavailable Mcclellan, Perez Attending Unavailable Perez Mcclellan Referring Unavailable Nolan Henao Attending Unavailable Fitz Jones Primary Care Unavailable Medications Current Medications Medication Drug Class(es) Dates Sig (Normalized) Sig (Original) ibuprofen 200 mg oral capsule (1 source) Nonsteroidal Anti-inflammatory Drug Start: 02-02-2025 take 1 capsule by mouth every six hours as needed Ibuprofen 200 mg capsule Active 200 mg PO EVERY 6 HOURS as needed February 02, 2025 12:00am polymyxin b [id number] unt/ml / trimethoprim 1 mg/ml ophthalmic solution (1 source) Dihydrofolate Reductase Inhibitor Antibacterial, Polymyxin-class Antibacterial Start: 09-29-2023 End: 10-06-2023 take 1 drop(s) into the eye(s) four times daily trimethoprim-polymy soo (POLYTRIM) 10,000 unit- 1 mg/mL ophthalmic solution Indications: Bacterial conjunctivitis Use 1 Drop in the left eye four times daily for 7 days. 10 mL 0 09/29/2023 10/06/2023 Active Comment on above: Use 1 Drop in the le ft eye four times daily for 7 days. predniSONE 10 mg oral tablet (1 source) Start: 12-09-2021 End: 12-18-2021 take 4 tablets by mouth once daily, [...] Comment on above: Take 4 tablets by [facility] once daily for 3 days, THEN 2 tablets once daily for 3 days, THEN 1 tablet once daily for 3 days. Take with food.. Completed/Discontinued Medications Medication Drug Class(es) Dates Sig (Normalized) Sig (Original) amoxicillin 875 mg / clavulanate 125 mg oral tablet (8 sources) Penicillin-class Antibacterial Start: 11-03-2023 End: 01-22-2025 Amoxicillin-Pot Clavulanate 875-125 mg tablet Discontinued 1 {tbl} PO TWICE A DAY November 03, 2023 12:00am January 22, 2025 8:07am Start: 11-03-2023 take 1 tablet by leonarda [...] two times a day for 7 days. multivit,thx,calci um,iron,mins (MULTIVITAMIN AND MINERAL ORAL) (4 sources) multivit,thx,moon cium, iron,mins (MULTIVITAMIN AND MINERAL ORAL) Take by mouth. 0 Active Comment on above: Take by mouth. naproxen sodium 220 mg oral capsule (3 sources) Nonsteroidal Anti-inflammatory Drug Start: End: take 1 capsule by mouth twice daily as needed Naproxen Sodium (Aleve) 220 mg capsule Discontinued 220 mg PO TWICE A DAY as needed January 22, 2025 12:00am February 02, 2025 8:08am Problems Active Problems Problem Classification Problem Date [...] [Unspecified conjunctivitis] 09-29-2023 Episodic Other eye disorders (7 sources) Swelling of eyelid; Translations: [Edema of right eye, unspecified eyelid] 11-03-2023 Episodic Other non-traumatic joint disorders (8 sources) Pain in left shoulder; Translations: [Left shoulder pain] Onset: 01-22-2025 01-19-2025 Episodic Other non-traumatic joint disorders (2 sources) Instability of left shoulder joint; Translations: [Other instability, left shoulder] 02-02-2025 Episodic Other non-traumatic joint disorders (1 source) Other instability, left shoulder; Translations: [Other instability, left shoulder] Onset: 02-02-2025 Episodic Other non-traumatic joint disorders (1 source) Pain in unspecified shoulder; Translations: [Pain in unspecified shoulder] Onset: 01-29-2025 Episodic Other upper respiratory infections (1 source) Bacterial sinusitis; Translations: [Chronic sinusitis, unspecified] 09-29-2023 Chronic Skin and subcutaneous tissue infections (7 sources) Cellulitis of periorbital region; Translations: [Periorbital cellulitis] 11-03-2023 Episodic Sprains and strains (3 sources) Glenoid labrum tear; Translations: [Superior glenoid labrum lesion of left shoulder, initial encounter] Onset: 02-02-2025 02-02-2025 Episodic Unclassified (1 source) Other specified postprocedural states; Translations: [OTHER SPECIFIED POSTPROCEDURAL STATES] Onset: 08-04-2017 Unclassified (3 sources) Left shoulder pain Unclassified (6 sources) M25.512 - Pain in left shoulder Past or Other Problems Problem Classification Problem [...] Test Name Value Interpretation Reference Range Facility Orthopedic Visit Reporton Orthopedic Visit Report [facility] [address] [place] [address] [place], [place] [id number] OFFICE VISIT Date of Service: 02/02/25 MR#: [id number] Acct: [id number] Name: JONH TOURE Rep #: [id number] : 1995 Provider: Dr. Nolan butts MD Age/Sex: 29/M Location: [facility].PATRICIA Status: Signed Intake Vital Signs 01/22/25 08:01 02/02/25 08:02 Height 6 ft 2 in 6 ft 2 in Weight: 219 lb 8 oz 220 lb BMI 28.1 28.2 Intake Visit Reasons: LEFT SHOULDER Chief Complaint: Left shoulder MRI review Accompanied by: Is patient in pain?: No Allergies No Known Allergies Allergy (Verified 02/02/25 08:08) Medications ???Medication ???Instructions ???Recorded ???Confirmed ???Type ibuprofen 200 mg capsule 200 mg PO Q6H PRN 02/02/25 5 History Have you fallen in the past year?: No PFSH Medical History (Updated 02/02/25 @ 08:22 by Nolan Henao MD) Tear of left glenoid labrum Other instability, left shoulder Surgical History H/O adenoidectomy Social History Smoking Status: Never smoker HPI LEFT SHOULDER Details: This documentation accurately reflects the service provided and the decisions made by me, Dr. Nolan Henao MD 02/02/25 0802. Part of today???s visit was documented by [ ], acting as scribe. JOHN TOURE is a 29 year old M here today for FU L shoulder MRI. Patient needed a new note for work he does most activities with his right upper extremity wants a new note to that effect. He is here with his today. Ortho Exam General General: Yes no acute distress Neurologic: Yes alert and Yes oriented x3 Psychologic: Yes reasonable and appropriate Supplemental Info [facility] Imaging Services [facility] [place], [place] [address] Upper Ext Joint Only(Routine) MR#: [id number] Acct: [id number] Name: JOHN TOURE Rep #: [id number] : 1995 M 29 From: Austyn Boateng MD PCP: Dr. Fitz Jones MD Status: REG CLI Study: Upper Ext Joint Only(Routine) Date of Exam: 01/22/25 Exam# [id number] Ordering Dr: Fitz Jones MD PROCEDURE: UPPER EXT JOINT ONLY(ROUTINE) 01/22/2025 REASON FOR EXAM: SHOULDER LEFT TECHNIQUE: UPPER EXT JOINT ONLY(ROUTINE) Multiplanar and multisequence images were obtained without IV contrast administration. COMPARISON: COMPARISON: January 18, 2025 x-ray FINDINGS: Bone Marrow: There is a recent depressed reverse Hill-Sachs fracture in the anterior medial humeral head with marrow edema consistent with posterior dislocation. There is subcortical edema in the posterior glenoid. Rotator cuff: There is no muscular atrophy. There is moderate distal infraspinatus tendinopathy without full-thickness tear, with subcortical cyst formation noted deep to the insertion. The supraspinatus, subscapularis, and teres minor appear intact. Labrum: There is a full-thickness tear of the anterior labrum with medial stripping of the periosteum at the glenoid neck. There is a full-thickness tear of the posterior inferior labrum. There is no paralabral cyst. There is a edema and attenuation in the posterior aspect of the inferior glenohumeral ligament at the glenoid. AC joint: The AC joint is aligned without evidence of separation. There is a type 2 acromion. Biceps tendon: The biceps tendon is present in the biceps tendon groove, with intact anchors. Effusion: There is a large joint effusion. There is a trace amount of fluid in the subacromial subdeltoid bursa, with bursitis. MRI/Upper Ext Joint Only(Routine) IMPRESSION: There is a recent depressed reverse Hill-Sachs fracture in the anterior medial humeral head with marrow edema consistent with posterior dislocation. There is subcortical edema in the posterior glenoid. There is moderate distal infraspinatus tendinopathy without full-thickness tear, with subcortical cyst formation noted deep to the insertion. There is a full-thickness tear of the anterior labrum with medial stripping of the periosteum at the glenoid neck. There is a full-thickness tear of the posterior inferior labrum. There is a edema and attenuation in the posterior aspect of the inferior glenohumeral ligament at the glenoid. There is a large joint effusion. There is a trace amount of fluid in the subacromial subdeltoid bursa, with bursitis. Reading Location: [facility] I independently reviewed the imaging. Concur with radiologist report. (more content not included)... [facility] Magnetic resonance imaging r eportOrdered By: Austyn Boateng on 01-22-2025 Study report [facility] Imaging Services [address] [place] [address] Upper Ext Joint Only(Routine) MR#: [id number] Acct: [id number] Name: JOHN TOURE Rep #: [id number] : 1995 M 29 From: Beatriz Boateng MD PCP: Dr. Fitz Jones MD Status: REG CL I Study:Upper Ext Joint Only(Routine) Date of Exam: 01/22/25 Exam# [id number] Ordering Dr: Caterina Jones MD PROCEDURE: UPPER EXT JOINT ONLY(ROUTINE) 01/22/2025 REASON FOR EXAM: SHOULDER LEFT TECHNIQUE: UPPER EXT JOINT ONLY(ROUTINE) Multiplanar and multisequence images were obtained without IV contrast administration. COMPARISON: COMPARISON: January 18, 2025 x-ray FINDINGS: Bone Marrow: There is a recent depressed reverse Hill-Sachs fracture in the anterior medial humeral head with marrow edema consistent with posterior dislocation. There is subcortical edema in the posterior glenoid. Rotator cuff: There is no muscular atrophy. There is moderate distal infraspinatus tendinopathy without full-thickness tear, with subcortical cyst formation noted deep to the insertion. The supraspinatus,subsca pularis, and teres minor appear intact. Labrum: There is a full-thickness tear of the anterior labrum with medial stripping of the periosteum at the glenoid neck. There is a full-thickness tear of the posterior inferior labrum. There is no paralabral cyst. There is a edema and attenuation in the posterior aspect of the inferior glenohumeral ligament at the glenoid. AC joint: The AC joint is aligned without evidence of separation. There is a type 2 acromion. Biceps tendon: The biceps tendon is present in the biceps tendon groove, with intact anchors. Effusion: There is a large joint effusion. There is a trace amount of fluid in the subacromial subdeltoid bursa, with bursitis. MRI/Upper Ext Joint Only(Routine) IMPRESSION: There is a recent depressed reverse Hill-Sachs fracture in the anterior medial humeral head with marrow edema consistent with posterior dislocation. There is subcortical edema in the posterior glenoid. There is moderate distal infraspinatus tendinopathy without full-thickness tear,with subcortical cyst formation noted deep to the insertion. There is a full-thickness tear of the anterior labrum with medial stripping of the periosteum at the glenoid neck. There is a full-thickness tear of the posterior inferior labrum. There is a edema and attenuation in the posterior aspect of the inferior glenohumeral ligament at the glenoid. There is a large joint effusion. There is a trace amount of fluid in the subacromial subdeltoid bursa, with bursitis. Reading Location: [facility] CC: Dr. Fitz Jones MD ~ Addictions Recovery Specialist: Signed [facility] Orthopedic Visit Reporton Orthopedic Visit Report [facility] [address] [place] [address] OFFICE VISIT Date of Service: 01/22/25 MR#: [id number] Acct: [id number] Name: JOHN TOURE Rep #: [id number] : 1995 Provider: Dr. Nolan butts MD Age/Sex: 29/M Location: [facility] [place].PATRICIA Status: Signed Intake Vital Signs 01/18/25 21:36 01/22/25 08:01 Height 6 ft 2 in 6 ft 2 in Weight: 219 lb 8 oz BMI 28.1 Intake Visit Reasons: LEFT SHOULDER Chief Complaint: Left shoulder Accompanied by: Self Is patient in pain?: Yes Pain scale (1-10): 3 Allergies No Known Allergies Allergy (Verified 01/22/25 08:07) Medications ???Medication ???Instructions ???Recorded ???Confirmed ???Type naproxen sodium 220 mg capsule 220 mg PO BID PRN 01/22/25 5 History (Aleve) Have you fallen in the past year?: No PFSH Surgical History H/O adenoidectomy Social History Smoking Status: Never smoker HPI LEFT SHOULDER Details: This documentation accurately reflects the service provided and the decisions made by me, Dr. Nolan Henao MD 01/22/25 0801. Part of today???s visit was documented by [ ], acting as scribe. JOHN TOURE is a 29 year old M here today for 1 week of left shoulder pain. 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 He is his spouse that works for [employer] at the endocrinology department. He was golfing he does not normally golf but he went out with some friends about a week ago he experienced a little bit of a pop and experience pain in the posterior aspect of the shoulder and in the periscapular musculature. He did have 1 prior injury in high school playing football no surgeries no recent treatments tried some medications no cortisone injections or surgeries in the past. No recent physical therapy. He writes left hand dominant but does other things right handed. His pain is gradually settling down over the last week. The emergency room department 29-year-old male who presented to the emergency department with the chief complaint of left shoulder pain. He states that his pain golf this week on Sunday and noted that when he went to hit the ball he developed left shoulder pain that persisted through the weekend. He states that he was going to try to go to urgent care tomorrow but is concerned that something serious may be going on therefore he came here to be further evaluated. Patient states that he did not take anything for pain control denies any direct trauma to the shoulder. Ortho Exam General General: Yes no acute distress Neurologic: Yes alert and Yes oriented x3 Psychologic: Yes reasonable and appropriate Left Shoulder Skin/Wound: Yes CDI, No ecchymosis, No erythema and No swelling Testing: No Hawkin's, Yes Neer's, No Speed's, Yes TTP Biceps, No TTP AC Joint, Yes AROM-Forward Elevation 0-180, Yes AROM-External Rotation at side 0-60, No Apprehension Test, No Sulcus Sign, Yes empty can, No Load and Shift, Yes jerk (mild positive), No Laporte, No cross arm, No lift off, No scapular symmetry, No scapular winging and Yes belly press normal SHOULDER: normal motor and sens to axillary N, MRU and AIN/PIN. Hand warm well perfused normal radial pulse Strength in forward elevation is 4+ strength in external rotation is 5 Supplemental Info [facility] Imaging Services [address] [place], [place] [address] Shoulder min 2 Views MR#: [id number] Acct: [id number] Name: JOHN TOURE Rep #: [id number] : 1995 M 29 From: Tk Solorzano MD PCP: Dr. Fitz Jones MD Status: REG ER Study: Shoulder min 2 Views Date of Exam: 01/18/25 Exam# [id number] Ordering Dr: Perez Mcclellan DO PROCEDURE: SHOULDER MIN 2 VIEWS 01/18/2025 REASON FOR EXAM: SHOULDER PAIN TECHNIQUE: SHOULDER MIN 2 VIEWS COMPARISON: No FINDINGS: No acute bone, soft tissue, or lung pathology. No degeneration. RAD/Shoulder min 2 Views IMPRESSION: No acute findings Reading Location: [facility] I independently reviewed the imaging. Concur with radiologist report. Coding Level of Care Code Off vis,new,level 4 Diagnoses Left shoulder pain M25.512 Assessment and Plan Assessment and Plan (1) Left shoulder pain: Status: Acute Plan: 29-year-old man with a bit of a click and some pain while golfing. Fairly low energy mechanism of injury. He has a prior football injury he could have exacerbated a pre-existing minor posterior labrum te (more content not included)... [facility] Upper Ext Joint Only(Routine )on 01-22-2025 Upper Ext Joint Only(Routine) [facility] Imaging Services [address] [place] [address] Upper Ext Joint Only(Routine) MR#: [id number] Acct: [id number] Name: JOHN TOURE Rep #: [id number] : 1995 M 29 From: Austyn Boateng MD PCP: Dr. Fitz Jones MD Status: REG CLI Study: Upper Ext Joint Only(Routine) Date of Exam: 0 01/22/25 Exam# [id number] Ordering Dr: Fitz Jones MD PROCEDURE: UPPER EXT JOINT ONLY(ROUTINE) 01/22/2025 REASON FOR EXAM: SHOULDER LEFT TECHNIQUE: UPPER EXT JOINT ONLY(ROUTINE) Multiplanar and multisequence images were obtained without IV contrast administration. COMPARISON: COMPARISON: January 18, 2025 x-ray FINDINGS: Bone Marrow: There is a recent depressed reverse Hill-Sachs fracture in the anterior medial humeral head with marrow edema consistent with posterior dislocation. There is subcortical edema in the posterior glenoid. Rotator cuff: There is no muscular atrophy. There is moderate distal infraspinatus tendinopathy without full-thickness tear, with subcortical cyst formation noted deep to the insertion. The supraspinatus, subscapularis, and teres minor appear intact. Labrum: There is a full-thickness tear of the anterior labrum with medial stripping of the periosteum at the glenoid neck. There is a full-thickness tear of the posterior inferior labrum. There is no paralabral cyst. There is a edema and attenuation in the posterior aspect of the inferior glenohumeral ligament at the glenoid. AC joint: The AC joint is aligned without evidence of separation. There is a type 2 acromion. Biceps tendon: The biceps tendon is present in the biceps tendon groove, with intact anchors. Effusion: There is a large joint effusion. There is a trace amount of fluid in the subacromial subdeltoid bursa, with bursitis. MRI/Upper Ext Joint Only(Routine) IMPRESSION: There is a recent depressed reverse Hill-Sachs fracture in the anterior medial humeral head with marrow edema consistent with posterior dislocation. There is subcortical edema in the posterior glenoid. There is moderate distal infraspinatus tendinopathy without full-thickness tear, with subcortical cyst formation noted deep to the insertion. There is a full-thickness tear of the anterior labrum with medial stripping of the periosteum at the glenoid neck. There is a full-thickness tear of the posterior inferior labrum. There is a edema and attenuation in the posterior aspect of the inferior glenohumeral ligament at the glenoid. There is a large joint effusion. There is a trace amount of fluid in the subacromial subdeltoid bursa, with bursitis. Reading Location: [facility] CC: Dr. Fitz Jnoes MD Addictions Recovery Specialist: Signed [facility] Emergency Department Summary on 01-19-2025 Emergency Department Summary [facility] Medical Records Department [address] [place] [address] Emergency Department Summary 01/19/25 MR#: [id number] Acct: [id number] Name: JOHN TOURE Rep #: [id number] : 1995 29 From: Perez Mcclellan DO PCP: Dr. Fitz Jones MD Status:DEP ER Location: ED ADDENDUM by Dr. Perez Mcclellan DO on 01/19/25 at 0048 Patient's official read by the radiologist showed no acute findings. 01/19/25 0048 Cosigner Signature (if applicable): cc: Dr. Fitz Jones MD * Signed HPI History of Present Illness Chief Complaint: Upper Extremity Injury Narrative Narrative: 29-year-old male who presented to the emergency department with the chief complaint of left shoulder pain. He states that his pain golf this week on Sunday and noted that when he went to hit the ball he developed left shoulder pain that persisted through the weekend. He states that he was going to try to go to urgent care tomorrow but is concerned that something serious may be going on therefore he came here to be further evaluated. Patient states that he did not take anything for pain control denies any direct trauma to the shoulder. PFSH PFSH Medical History no medical history Home Medications ???Medication ???Instructions ???Recorded ???Last Taken ???Type amoxicillin 875 mg-potassium 1 tab PO BID #20 tabs 11/03/23 Unk nown Rx clavulanate 125 mg tablet Allergy/AdvReac Type Severity Reaction Status Date / Time No Known Allergies Allergy Verified 01/18/25 21:36 Family History no significant family his Surgical History H/O adenoidectomy Social History Smoking Status: Never smoker ROS ROS ED ROS Narrative Constitutional: Denies any fevers, chills, headache Cardiovascular: Denies chest pain Respiratory: Denies shortness of breath Neurological: Denies any numbness, weakness, tingling Musculoskeletal: Complains of left shoulder pain as noted above Skin: Denies any rashes or lesions EXAM Physical Exam Narrative Exam Narrative: General: Patient lying in bed rest comfortably did not appear to be in acute distress Head: Atraumatic, normocephalic Eyes: PERRL bilaterally, EOMI by, no conjunctival injection noted Neck: Soft, supple, trachea midline Cardiovascular: [ ] Respiratory: Clear to auscultation bilaterally no rales rhonchi or wheeze noted Abdomen: Soft, nondistended, nontender to palpation Musculoskeletal: Patient has full range of motion of his left shoulder, radial pulse +2/4 in the bilateral extremities, positive empty can test Extremities: +5/5 strength in the bilateral upper and lower extremities, Neurological: Patient follow commands knew that he was at [facility] years 2024. Sensation grossly intact in the axillary nerve distribution bilaterally, radial, ulnar and median nerve distributions bilaterally Skin: No rashes or lesions noted Const Vital Signs: 01/18/25 21:36 Temperature 97.4 F L Temperature Source Temporal Pulse Rate 71 Respiratory Rate 18 Blood Pressure 148/82 H Blood Pressure Mean 104 Pulse Ox 100 Oxygen Delivery Method Room Air MDM MDM MDM Narrative Medical decision making narrative: Patient is a 29-year-old male who presented to the emergency department the chief complaint of left shoulder pain after golfing this weekend. On the differential diagnosis clued but limited to labral tear, supraspinatus tear, dislocation, pathologic fracture. Once workup is obtained reviewed he will be reevaluated. Patient was ordered Toradol however he states that he does not want this at this point time. Patient's x-ray of his shoulder was reviewed by myself and official read per radiology still pending it has been a significant time the patient would like to go home at this point in time. I did not appreciate any acute fractures or dislocations. We discussed stain and waiting longer for the official read versus if anything is abnormal we will give him a call back in regards to this finding. He would like to go home at this point time he is requesting work note he is advised to rotate Tylenol and ibuprofen [id number] and follow-up with Dr. Padilla in the outpatient setting. He is encouraged return with worsening symptoms and concerns. He is agreeable this plan as well as significant other bedside all question concerns answered he is discharged home in stable condition Discharge Plan Triage Chief Complaint: Upper Extremity Injury ED Provider: Perez Mcclellan Dx/Rx/DC Orders Clinical Impression: Left shoulder pain Prescriptions: No Action amoxicillin-pot clavulanate 875-125 mg tablet 1 tab PO BID Qty: 20 0RF Primary Care Provider: Fitz Jones (more content not included)... [facility] Shoulder min 2 Viewson 01-18 Shoulder min 2 Views [facility] Imaging Services [address] [place], [place] [address] Shoulder min 2 Views MR#: [id number] Acct: [id number] Name: JOHN TOURE Rep #: [id number] : 1995 M 29 From: Tk Solorzano MD PCP: Dr. Fitz Jones MD Status: REG ER Study: Shoulder min 2 Views Date of Exam: 01/18/25 Exam# [id number] Ordering Dr: Perez Mcclellan DO PROCEDURE: SHOULDER MIN 2 VIEWS 01/18/2025 REASON FOR EXAM: SHOULDER PAIN TECHNIQUE: SHOULDER MIN 2 VIEWS COMPARISON: No FINDINGS: No acute bone, soft tissue, or lung pathology. No degeneration. RAD/Shoulder min 2 Views IMPRESSION: No acute findings Reading Location: [place] [address] CC: Dr. Fitz Jones MD; Dr. Perez Mcclellan DO Addictions Recovery Specialist: Signed [facility] Testosterone, Total / Freeon 10-25-2024 TESTOSTER,FREE 8.76 ng/dL Normal 5.00-21.00 [facility] Comment on above: Order Comment: Order Date: 09/26/24Order Info: 0024-1 - TESTFN Performed By: #### L 3100.5310 ####[facility] [address] [place], [address] TESTOSTER,TOTAL 188 ng/dL Low 264-916 [facility] Comment on above: Order Comment: Order Date: 09/26/24Order Info: 0024-1 - TESTFN Result Comment: Adul t male reference interval is based on a population of healthy nonobese males (BMI <30) between 19 and 39 years old. bernardo Aguilera.al. JCEM 2017,102;7001-1448. PMID: [id number]. Performed By: #### L 3100.5310 ####[facility] [address] [place], [place], [address] TESTOSTERONE,%F 4.66 High 1.50-4.20 [facility] Comment on above: Order Comment: Order Date: 09/26/24Order Info: 0024-1 - TESTFN Result Comment: Perf ormed at: [facility] [id number] Geophysical Manager: Fernie Martines PhD, Phone: [phone] Performed at: [facility] [id number] Geophysical Manager: Andrews Arana MD, Phone: [phone] Performed By: #### L 3100.5310 ####[facility] [address] [place], [place], [address] Free testosterone percentage Ordered By: Fitz Jones on 10-11-2024 Testosterone Free/Testosterone.total [Mass fraction] 4.66 % High 1.50-4.20 [facility] Comment on above: Performed at: [facility] [address] [id number] Director: Fernie Martines PhD, Phone: [phone] at: [place] [id number] Director: Andrews Arana MD, Phone: [phone] Serum or plasma free testost erone measurement (mass/volume)Ordered By: Fitz Jones on 10-11-2024 Testosterone Free [Mass/Vol] 8.76 ng/dL 5.00-21.00 [facility] Testosterone, totalOrdered B y: Fitz Jones on 10-11-2024 Testosterone [Mass/Vol] 188 ng/dL Low 264-916 [facility] Comment on above: Adult male reference interval is based on a population ofhealthy nonobese males (BMI <30) between 19 and 39 yearsold. Willy et.al. JCEM 2017,102;2249-2407. PMID:[id number]. Abdomen Limitedon 10-04-2024 Abdomen Limited [facility] Imaging Services [address] [place] [address] Abdomen Limited MR#: [id number] Acct: [id number] Name: JOHN TOURE Rep #: [id number] : 1995 M 29 From: Ranjit Olivo PCP: Dr. Fitz Jones MD Status: REG CLI Study: Abdomen Limited Date of Exam: 10/04/24 Exam# [id number] Ordering Dr: Fitz Jones MD PROCEDURE: Right [...] US/Abdomen Limited IMPRESSION: Hepatic steatosis. Reading Location: [place] CC: Dr. Fitz Jones MD Addictions Recovery Specialist: Signed [facility] [id number] DOrdered By: Lowell Jones on 07-21-2024 Vitamin D 25-Hydroxy 12.5 ng/mL [facility] Comment on above: Vitamin D 25([place]) Sta tus Range Deficiency <20 ng/mL (50nmol/L) Insufficiency 20 - 30 ng/mL (50 - 75 nmol/L) Sufficiency 30 - 100 ng/mL (75 - 250 nmol/L) Toxicity >100 ng/mL (>250 nmol/L) Hemoglobin A1con 07-21-2024 HbA1c (Bld) [Mass fraction] 5.2 % Normal 3.8-5.6 [facility] Comment on above: Order Comment: PLEAS E ADD A1C TO THE CBCD THAT WAS DONE ON 07 19 24 Result Comment: Norm al < 5.7 % Prediabetic 5.7 - 6.4 % Diabetic >or= 6.5 % Please note range changes. Performed By: #### L 501.9520, L506.1000, L509.3000, L501.9985 ####[facility] [address] [place], [place], [address] Hemoglobin A1c percentageOrd ered By: Fitz Priceke on 07-21-2024 HbA1c (Bld) [Mass fraction] 5.2 % 3.8-5.6 [facility] Comment on above: Normal < 5.7 % Predi abetic 5.7 - 6.4 % Diabetic >or= 6.5 % Please note range changes. Testosterone, Serum Totalon 07-21-2024 Testosterone [Mass/Vol] 135.82 ng/dL [facility] Comment on above: Order Comment: PLEAS E ADD TEST TOTAL TO BLOOD WORK THAT WAS DONE ON07 19 24 Result Comment: CENT RAL 90% REFERENCE RANGES MALE AGE <50 197.44 - 669.58 ng/dL MALE AGE > or = 50 187.72 - 684.19 ng/dL FEMALE AGE <50 8.38 - 35.01 ng/dL FEMALE AGE > or = 50 <7.00 - 35.92 ng/dL Effective as of 02/15/21 Performed By: #### L 501.9520, L506.1000, L509.3000, L501.9985 ####[facility] [address] [place], [place], [address] Testosterone, totalOrdered B y: Milanbenjamín Jones on 07-21-2024 Testosterone [Mass/Vol] 135.82 ng/dL [facility] Comment on above: CENTRAL 90% REFERENC E RANGES MALE AGE <50 197.44 - 669.58 ng/dL MALE AGE > or = 50 187.72 - 684.19 ng/dL FEMALE AGE <50 8.38 - 35.01 ng/dL FEMALE AGE > or = 50 <7.00 - 35.92 ng/dL Effective as of 02/15/21 Thyroid Stim Hormone (TSH)on 07-21-2024 TSH 2.820 uIU/mL Normal 0.358-3.740 [facility] Comment on above: Order Comment: JUAN J Law ADD ON TSH AND VITD TO BLOOD WORK DONE ON 07 19 24 PLEASE ADD ON TSH,VITD, TO BLOOD WORK THAT WAS DONE ON 07 19 24 Order Date: 07/17/24 Order Info: 0786-1 - CMP Order Info: [id number] - LIPID Performed By: #### L 501.9520, L506.1000, L509.3000, L501.9985 #### [facility] [address] [place], [place], [address] Vitamin D,25 Hydroxyon 07-21 Vitamin D 25-OH 12.5 ng/mL [facility] Comment on above: Order Comment: JUAN J Law ADD TEST TOTAL TO BLOOD WORK THAT WAS DONE ON07 19 24 Result Comment: Selam min D 25(OH) Status Range Deficiency <20 ng/mL (50nmol/L) Insufficiency 20 - 30 ng/mL (50 - 75 nmol/L) Sufficiency 30 - 100 ng/mL (75 - 250 nmol/L) Toxicity >100 ng/mL (>250 nmol/L) Performed By: #### L 501.9520, L506.1000, L509.3000, L501.9985 ####[facility] [address] [place], [place], [id number] Absolute neutrophil countOrd ered By: Fitz Jones on 07-19-2024 Neutrophils (Bld) [#/Vol] 5.6 10*3/uL 2.0-7.7 [facility] Albumin to globulin ratioOrd ered By: Fitz Jones on 07-19-2024 Albumin/Globulin [Mass ratio] 1.1 {ratio} 0.9-2.4 [facility] Basophil percentageOrdered B y: Fitz Jones on 07-19-2024 Basophils/100 WBC (Bld) 0.8 % 0-1 [facility] Bilirubin, totalOrdered By: Fitz Jones on 07-19-2024 Bilirubin [Mass/Vol] 1.00 mg/dL 0.20-1.00 [facility] Comment on above: For patients on eltr ombopag therapy, use of Dimension [place] TBIL is not recommended. Blood urea nitrogen (BUN)/cr eatinine ratioOrdered By: Fitz Jones on 07-19-2024 Urea nitrogen/Creatinine [Mass ratio] 14.7 mg/mg - [facility] CBC W/Diff, Automatedon 06-23 Absolute Lymph 1.53 X10 3/uL Normal 0.83-4.51 [facility] Comment on above: Order Comment: Order Date: 07/17/24 Order Info: 0184-1 - CBCD Performed By: #### L 100.0100, L500.4050, L500.4100 #### [facility] [address] [place], [address] Absolute Neut 5.6 X10 3/uL Normal 2.0-7.7 [facility] Comment on above: Order Comment: Order Date: 07/17/24 Order Info: 0184-1 - CBCD Performed By: #### L 100.0100, L500.4050, L500.4100 #### [facility] [address] [place], [address] Basophils/100 WBC (Bld) 0.8 % Normal 0-1 [facility] Comment on above: Order Comment: Order Date: 07/17/24 Order Info: 0184-1 - CBCD Performed By: #### L 100.0100, L500.4050, L500.4100 #### [facility] [address] [place], [address] Eosinophils/100 WBC (Bld) 1.1 % Normal 0-5 [facility] Comment on above: Order Comment: Order Date: 07/17/24 Order Info: 0184-1 - CBCD Performed By: #### L 100.0100, L500.4050, L500.4100 #### [facility] [address] [place], [address] Erythrocyte distribution width (RBC) [Ratio] 11.9 % Normal 11.6-14.6 [facility] Comment on above: Order Comment: Order Date: 07/17/24 Order Info: 0184-1 - CBCD Performed By: #### L 100.0100, L500.4050, L500.4100 #### [facility] [address] [place], [address] Hematocrit (Bld) [Volume fraction] 43.7 % Normal 40-54 [facility] Comment on above: Order Comment: Order Date: 07/17/24 Order Info: 0184- - CBCD Performed By: #### L 100.0100, L500.4050, L500.4100 #### [facility] [address] [place], [address] Hemoglobin (Bld) [Mass/Vol] 14.5 g/dL Normal 13.0-16.5 [facility] Comment on above: Order Comment: Order Date: 07/17/24 Order Info: 018- - CBCD Performed By: #### L 100.0100, L500.4050, L500.4100 #### [facility] [address] [place], [address] IG% 0.500 Normal 0.0-0.9 [facility] Comment on above: Order Comment: Order Date: 07/17/24 Order Info: 0184- - CBCD Result Comment: IG% - Immature Granulocytes (promyelocytes, myelocytes and metamyelocytes) > 1% indicates that a LEFT SHIFT is Present. Performed By: #### L 100.0100, L500.4050, L500.4100 #### [facility] [address] [place], [address] Lymphocytes/100 WBC (Bld) 19.2 % Normal 19-41 [facility] Comment on above: Order Comment: Order Date: 07/17/24 Order Info: 0184- - CBCD Performed By: #### L 100.0100, L500.4050, L500.4100 #### [facility] [address] [place], [address] MCH (RBC) [Entitic mass] 28.9 pg Normal 27.0-32.0 [facility] Comment on above: Order Comment: Order Date: 07/17/24 Order Info: 0184-1 - CBCD Performed By: #### L 100.0100, L500.4050, L500.4100 #### [facility] [address] [place], [address] MCHC (RBC) [Mass/Vol] 33.2 g/dL Normal 32-36 [facility] Comment on above: Order Comment: Order Date: 07/17/24 Order Info: 0184-1 - CBCD Performed By: #### L 100.0100, L500.4050, L500.4100 #### [facility] [address] [place], [address] MCV (RBC) [Entitic vol] 87.1 fL Normal 80-94 [facility] Comment on above: Order Comment: Order Date: 07/17/24 Order Info: 0184-1 - CBCD Performed By: #### L 100.0100, L500.4050, L500.4100 #### [facility] [address] [place], [address] Monocytes/100 WBC (Bld) 8.5 % Normal 0-10 [facility] Comment on above: Order Comment: Order Date: 07/17/24 Order Info: 0184-1 - CBCD Performed By: #### L 100.0100, L500.4050, L500.4100 #### [facility] [address] [place], [address] Neutrophils/100 WBC (Bld) 69.9 % Normal 47-70 [facility] Comment on above: Order Comment: Order Date: 07/17/24 Order Info: 0184-1 - CBCD Performed By: #### L 100.0100, L500.4050, L500.4100 #### [facility] [address] [place], [address] Nucleated RBC (Bld) [#/Vol] 0 10*3/uL Normal 0-5 [facility] Comment on above: Order Comment: Order Date: 07/17/24 Order Info: 0184-1 - CBCD Performed By: #### L 100.0100, L500.4050, L500.4100 #### [facility] [address] [place], [address] Platelet mean volume (Bld) [Entitic vol] 9.3 fL Normal 6.2-12.0 [facility] Comment on above: Order Comment: Order Date: 07/17/24 Order Info: 0184- - CBCD Performed By: #### L 100.0100, L500.4050, L500.4100 #### [facility] [address] [place], [address] Platelets (Bld) [#/Vol] 372 10*3/uL Normal 150-450 [facility] Comment on above: Order Comment: Order Date: 07/17/24 Order Info: 0184- - CBCD Performed By: #### L 100.0100, L500.4050, L500.4100 #### [facility] [address] [place], [address] RBC (Bld) [#/Vol] 5.02 10*6/uL Normal 4.6-6.2 [facility] Comment on above: Order Comment: Order Date: 07/17/24 Order Info: 0184-1 - CBCD Performed By: #### L 100.0100, L500.4050, L500.4100 #### [facility] [address] [place], [address] RDW SD 38.2 fl Normal 35.1-43.9 [facility] Comment on above: Order Comment: Order Date: 07/17/24 Order Info: 0184- - CBCD Performed By: #### L 100.0100, L500.4050, L500.4100 #### [facility] [address] [place], [address] WBC (Bld) [#/Vol] 8.0 10*3/uL Normal 4.4-11.0 [facility] Comment on above: Order Comment: Order Date: 07/17/24 Order Info: 0184- - CBCD Performed By: #### L 100.0100, L500.4050, L500.4100 #### [facility] [address] [place], [address] Carbon dioxide measurementOr dered By: Fitz Jones on 07-19-2024 CO2 [Moles/Vol] 25.0 mmol/L 21.0-32.0 [facility] Chloride measurementOrdered By: Fitz Jones on 07-19-2024 Chloride [Moles/Vol] 107 mmol/L 98-107 [facility] Comprehensive Metabolic Prof ilon 07-19-2024 Albumin [Mass/Vol] 4.0 g/dL Normal 3.2-5.0 [facility] Comment on above: Order Comment: Order Date: 07/17/24 Order Info: 0786-1 - CMP Order Info: [id number] - LIPID Performed By: #### L 100.0100, L500.4050, L500.4100 #### [facility] [address] [place], [address] Albumin/Globulin [Mass ratio] 1.1 {ratio} Normal 0.9-2.4 [facility] Comment on above: Order Comment: Order Date: 07/17/24 Order Info: 0786-1 - CMP Order Info: [id number] - LIPID Performed By: #### L 100.0100, L500.4050, L500.4100 #### [facility] [address] [place], [address] ALK P 99 U/L Normal 45-117 [facility] Comment on above: Order Comment: Order Date: 07/17/24 Order Info: 0786-1 - CMP Order Info: [id number] - LIPID Performed By: #### L 100.0100, L500.4050, L500.4100 #### [facility] [address] [place], [address] ALT [Catalytic activity/Vol] 144 U/L High 16-61 [facility] Comment on above: Order Comment: Order Date: 07/17/24 Order Info: 0786-1 - CMP Order Info: [id number] - LIPID Performed By: #### L 100.0100, L500.4050, L500.4100 #### [facility] [address] [place], [address] AST [Catalytic activity/Vol] 74 U/L High 15-37 [facility] Comment on above: Order Comment: Order Date: 07/17/24 Order Info: 0786- - CMP Order Info: [id number] - LIPID Performed By: #### L 100.0100, L500.4050, L500.4100 #### [facility] [address] [place], [address] Bilirubin [Mass/Vol] 1.00 mg/dL Normal 0.20-1.00 [facility] Comment on above: Order Comment: Order Date: 07/17/24 Order Info: 0786-1 - CMP Order Info: [id number] - LIPID Result Comment: For patients on eltrombopag therapy, use of Dimension [place] TBIL is not recommended. Performed By: #### L 100.0100, L500.4050, L500.4100 #### [facility] [address] [place], [address] BUN/CRE 14.7 RATIO Normal 10-20 [facility] Comment on above: Order Comment: Order Date: 07/17/24 Order Info: 0786-1 - CMP Order Info: [id number] - LIPID Performed By: #### L 100.0100, L500.4050, L500.4100 #### [facility] [address] [place], [address] CA,Total 9.6 mg/dL Normal 8.5-10.1 [facility] Comment on above: Order Comment: Order Date: 07/17/24 Order Info: 07 - CMP Order Info: [id number] - LIPID Performed By: #### L 100.0100, L500.4050, L500.4100 #### [facility] [address] [place], [address] Chloride [Moles/Vol] 107 mmol/L Normal 98-107 [facility] Comment on above: Order Comment: Order Date: 07/17/24 Order Info: [id number] - CMP Order Info: [id number] - LIPID Performed By: #### L 100.0100, L500.4050, L500.4100 #### [facility] [address] [place], [address] CO2 [Moles/Vol] 25.0 mmol/L Normal 21.0-32.0 [facility] Comment on above: Order Comment: Order Date: 07/17/24 Order Info: 0786 - CMP Order Info: [id number] - LIPID Performed By: #### L 100.0100, L500.4050, L500.4100 #### [facility] [address] [place], [address] Creatinine [Mass/Vol] 0.95 mg/dL Normal 0.70-1.30 [facility] Comment on above: Order Comment: Order Date: 07/17/24 Order Info: 07 - CMP Order Info: [id number] - LIPID Result Comment: The validity of the calculated GFR GFRAA in patients over 70 years has not been determined. Clinical correlation is essential. Performed By: #### L 100.0100, L500.4050, L500.4100 #### [facility] [address] [place], [address] EST GFR - AA 122 mL/min Normal >60 [facility] Comment on above: Order Comment: Order Date: 07/17/24 Order Info: 07 - CMP Order Info: [id number] - LIPID Result Comment: Afri can Wallisian GFR Calc Performed By: #### L 100.0100, L500.4050, L500.4100 #### [facility] [address] [place], [address] GAP 6 Normal 5-15 [facility] Comment on above: Order Comment: Order Date: 07/17/24 Order Info: [id number] - CMP Order Info: [id number] - LIPID Performed By: #### L 100.0100, L500.4050, L500.4100 #### [facility] [address] [place], [address] GFR/1.73 sq M.predicted among non-blacks MDRD (S/P/Bld) [Vol rate/Area] 101 mL/min/{1.73_m2} Normal >60 [facility] Comment on above: Order Comment: Order Date: 07/17/24 Order Info: 07 - CMP Order Info: [id number] - LIPID Result Comment: Non- GFR Calc Performed By: #### L 100.0100, L500.4050, L500.4100 #### [facility] [address] [place], [address] Globulin (S) [Mass/Vol] 3.8 g/dL Normal 2.2-4.2 [facility] Comment on above: Order Comment: Order Date: 07/17/24 Order Info: 0786 - CMP Order Info: [id number] - LIPID Performed By: #### L 100.0100, L500.4050, L500.4100 #### [facility] [address] [place], [address] Glucose [Mass/Vol] 100 mg/dL Normal 74-106 [facility] Comment on above: Order Comment: Order Date: 07/17/24 Order Info: 0786- - CMP Order Info: [id number] - LIPID Result Comment: Fast ing Glucose result from 100 to 125 mg/dL suggests IMPAIRED HOMEOSTASIS per A.D.A. criteria. Performed By: #### L 100.0100, L500.4050, L500.4100 #### [facility] [address] [place], [address] Potassium [Moles/Vol] 4.0 mmol/L Normal 3.5-5.1 [facility] Comment on above: Order Comment: Order Date: 07/17/24 Order Info: 0786 - CMP Order Info: [id number] - LIPID Performed By: #### L 100.0100, L500.4050, L500.4100 #### [facility] [address] [place], [address] Sodium [Moles/Vol] 138 mmol/L Normal 136-145 [facility] Comment on above: Order Comment: Order Date: 07/17/24 Order Info: 0786- - CMP Order Info: [id number] - LIPID Performed By: #### L 100.0100, L500.4050, L500.4100 #### [facility] [address] [place], [address] T PROT 7.8 g/dL Normal 6.4-8.2 [facility] Comment on above: Order Comment: Order Date: 07/17/24 Order Info: 0786-1 - CMP Order Info: [id number] - LIPID Performed By: #### L 100.0100, L500.4050, L500.4100 #### [facility] [address] [place], [address] Urea nitrogen [Mass/Vol] 14 mg/dL Normal 7-18 [facility] Comment on above: Order Comment: Order Date: 07/17/24 Order Info: 0786-1 - CMP Order Info: [id number] - LIPID Performed By: #### L 100.0100, L500.4050, L500.4100 #### [facility] [place], [address] Eosinophil percentageOrdered By: Fitz Jones on 07-19-2024 Eosinophils/100 WBC (Bld) 1.1 % 0-5 [facility] Erythrocyte distribution wid th ratioOrdered By: Fitz Jones on 07-19-2024 Erythrocyte distribution width (RBC) [Ratio] 11.9 % 11.6-14.6 [facility] Erythrocyte distribution wid th standard deviationOrdered By: Fitz Jones on 07-19-2024 Erythrocyte distribution width (RBC) [Entitic vol] 38.2 fL 35.1-43.9 [facility] Estimated glomerular filtrat ion rate (GFR) AmericanOrdered By: Fitz Jones on 07-19-2024 Estimated GFR (MDRD) Amer 122 mL/min >60 [facility] Comment on above: GFR Calc Glomerular filtration rate ( GFR) estimationOrdered By: Fitz Jones on 07-19-2024 Estimated GFR (MDRD) Non-Af Amer 101 mL/min >60 [facility] Comment on above: Non- GFR Calc Glucose measurementOrdered B y: Fitz Jones on 07-19-2024 Glucose [Mass/Vol] 100 mg/dL 74-106 [facility] Comment on above: Fasting Glucose resu lt from 100 to 125 mg/dL suggests IMPAIRED HOMEOSTASIS per A.D.A. criteria. Hematocrit Auto (Bld) [Volum e fraction]Ordered By: Fitz Jones on 07-19-2024 Hematocrit (Bld) [Volume fraction] 43.7 % 40-54 [facility] Hemoglobin measurementOrdere d By: Fitz Jones on 07-19-2024 Hemoglobin (Bld) [Mass/Vol] 14.5 g/dL 13.0-16.5 [facility] High density lipoprotein (HD L) measurementOrdered By: Fitz Karen on 07-19-2024 Cholesterol in HDL [Mass/Vol] 41 mg/dL >40 [facility] Comment on above: The drugs N-Acetylcy steine and Metamizole may falsely depress this assay. Reference Range HDL <40 mg/dL Low HDL Cholesterol HDL >or= 60 mg/dL High HDL Cholesterol Immature granulocytes/100 WB C Auto (Bld)Ordered By: Fitz Jones on 07-19-2024 Immature granulocytes/100 WBC (Bld) 0.500 % 0.0-0.9 [facility] Comment on above: IG% - Immature Granu locytes (promyelocytes, myelocytes and metamyelocytes) > 1% indicates that a LEFT SHIFT is Present. Laboratory - Chemistry and C hemistry - challengeOrdered By: Fitz Jones on 07-19-2024 AST [Catalytic activity/Vol] 74 U/L High 15-37 [facility] Lipid Profileon 07-19-2024 Cholesterol [Mass/Vol] 223 mg/dL High 200 [facility] Comment on above: Order Comment: Order Date: 07/17/24 Order Info: 0786-1 - CMP Order Info: [id number] - LIPID Result Comment: <200 mg/dL Desirable 200-240 mg/dL Borderline >240 mg/dL High Risk Performed By: #### L 100.0100, L500.4050, L500.4100 #### [facility] [address] [place], [address] Cholesterol in HDL [Mass/Vol] 41 mg/dL Normal [facility] Comment on above: Order Comment: Order Date: 07/17/24 Order Info: 0786-1 - CMP Order Info: [id number] - LIPID Result Comment: The drugs N-Acetylcysteine and Metamizole may falsely depress this assay. Reference Range HDL <40 mg/dL Low HDL Cholesterol HDL >or= 60 mg/dL High HDL Cholesterol Performed By: #### L 100.0100, L500.4050, L500.4100 #### [facility] [address] [place], [address] Cholesterol in LDL [Mass/Vol] 151 mg/dL High 0-130 [facility] Comment on above: Order Comment: Order Date: 07/17/24 Order Info: 0786-1 - CMP Order Info: [id number] - LIPID Performed By: #### L 100.0100, L500.4050, L500.4100 #### [facility] [address] [place], [address] Cholesterol in VLDL [Mass/Vol] 31 mg/dL Normal 5-40 [facility] Comment on above: Order Comment: Order Date: 07/17/24 Order Info: 0786-1 - CMP Order Info: [id number] - LIPID Performed By: #### L 100.0100, L500.4050, L500.4100 #### [facility] [address] [place], [address] Triglyceride [Mass/Vol] 157 mg/dL Normal [facility] Comment on above: Order Comment: Order Date: 07/17/24 Order Info: [id number] - CMP Order Info: [id number] - LIPID Result Comment: The drugs N-Acetylcysteine and Metamizole may falsely depress this assay. Serum Triglycerides Reference Interval Normal <150 mg/dL Borderline high 150 - 199 mg/dL High 200 - 499 mg/dL Very High > or = 500 mg/dL Performed By: #### L 100.0100, L500.4050, L500.4100 #### [facility] [address] [place], [address] Low density lipoprotein (LDL ) cholesterol measurementOrdered By: Fitz Jones on 07-19-2024 Cholesterol in LDL [Mass/Vol] 151 mg/dL High 0-130 [facility] Lymphocytes Auto (Unsp spec) [#/Vol]Ordered By: Fitz Jones on 07-19-2024 Lymphocytes (Bld) [#/Vol] 1.53 10*3/uL 0.83-4.51 [facility] Lymphocytes/100 WBC Auto (Un sp spec)Ordered By: Fitz Jones on 07-19-2024 Lymphocytes/100 WBC (Bld) 19.2 % 19-41 [facility] MCV (mean corpuscular volume ) determinationOrdered By: Fitz Jones on 07-19-2024 MCV (RBC) [Entitic vol] 87.1 fL 80-94 [facility] Mean corpuscular hemoglobin (MCH) determinationOrdered By: Milanbenjamín Karen on 07-19-2024 MCH (RBC) [Entitic mass] 28.9 pg 27.0-32.0 [facility] Mean corpuscular hemoglobin concentration (MCHC) determinationOrdered By: Fitz Karen on 07-19-2024 MCHC (RBC) [Mass/Vol] 33.2 g/dL 32-36 [facility] Mean platelet volume determi nationOrdered By: Fitz Karen on 07-19-2024 Platelet mean volume (Bld) [Entitic vol] 9.3 fL 6.2-12.0 [facility] Monocyte percentageOrdered B y: Fitz Jones on 07-19-2024 Monocytes/100 WBC (Bld) 8.5 % 0-10 [facility] Neutrophil percentageOrdered By: Fitz Jones on 07-19-2024 Neutrophils/100 WBC (Bld) 69.9 % 47-70 [facility] Nucleated red blood cell per centageOrdered By: Fitz Jones on 07-19-2024 Nucleated RBC/100 WBC (Bld) [Ratio] 0 % 0-5 [facility] Platelet countOrdered By: Edy Jones on 07-19-2024 Platelets (Bld) [#/Vol] 372 10*3/uL 150-450 [facility] Potassium measurementOrdered By: Fitz Jones on 07-19-2024 Potassium [Moles/Vol] 4.0 mmol/L 3.5-5.1 [facility] RBC Auto (Bld) [#/Vol]Ordere d By: Fitz Jones on 07-19-2024 RBC (Bld) [#/Vol] 5.02 10*6/uL 4.6-6.2 [facility] Serum anion gap measurementO rdered By: Fitz Jones on 07-19-2024 Anion gap [Moles/Vol] 6 mmol/L 5-15 [facility] Serum globulin measurementOr dered By: Fitz Jones on 07-19-2024 Globulin (S) [Mass/Vol] 3.8 g/dL 2.2-4.2 [facility] Serum or plasma alanine negro otransferase (ALT) measurementOrdered By: Fitz Jones on 07-19-2024 ALT [Catalytic activity/Vol] 144 U/L High 16-61 [facility] Serum or plasma albumin dionicio urement (mass/volume)Ordered By: Fitz Jones on 07-19-2024 Albumin [Mass/Vol] 4.0 g/dL 3.2-5.0 [facility] Serum or plasma alkaline lyla sphatase measurementOrdered By: Fitz Jones on 07-19-2024 ALP [Catalytic activity/Vol] 99 U/L 45-117 [facility] Serum or plasma calcium dionicio urement (mass/volume)Ordered By: Fitz Jones on 07-19-2024 Calcium [Mass/Vol] 9.6 mg/dL 8.5-10.1 [facility] Serum or plasma cholesterol measurement (mass/volume)Ordered By: Fitz Jones on 07-19-2024 Cholesterol [Mass/Vol] 223 mg/dL High <200 [facility] Comment on above: <200 mg/dL Desirable 200-240 mg/dL Borderline >240 mg/dL High Risk Serum or plasma creatinine m easurement (mass/volume)Ordered By: Fitz Jones on 07-19-2024 Creatinine [Mass/Vol] 0.95 mg/dL 0.70-1.30 [facility] Comment on above: The validity of the calculated GFR & GFRAA in patients over 70 years has not been determined. Clinical correlation is essential. Serum or plasma urea nitroge n measurement (mass/volume)Ordered By: Fitz Jones on 07-19-2024 Urea nitrogen [Mass/Vol] 14 mg/dL 7-18 [facility] Sodium levelOrdered By: Milan Jones on 07-19-2024 Sodium [Moles/Vol] 138 mmol/L 136-145 [facility] TSH QnOrdered By: Fitz law on 07-19-2024 Thyroid Stimulating Hormone (TSH) 2.820 uIU/mL 0.358-3.740 [facility] Total proteinOrdered By: Caterina Jones on 07-19-2024 Protein [Mass/Vol] 7.8 g/dL 6.4-8.2 [facility] Triglycerides measurementOrd ered By: Fitz Jones on 07-19-2024 Triglyceride [Mass/Vol] 157 mg/dL <199 [facility] Comment on above: The drugs N-Acetylcy steine and Metamizole may falsely depress this assay.Serum Triglycerides Reference Interval Normal <150 mg/dL Borderline high 150 - 199 mg/dL High 200 - 499 mg/dL Very High > or = 500 mg/dL Very low density lipoprotein (VLDL) cholesterol measurementOrdered By: Fitz Jones on 07-19-2024 VLDL Cholesterol 31 mg/dL 5-40 [facility] White blood cell (WBC) count Ordered By: Fitz Jones on 07-19-2024 WBC (Bld) [#/Vol] 8.0 10*3/uL 4.4-11.0 [facility] CNOVon 11-03-2023 CNOV Office Visit (UCWSTR) JOHN TOURE ([id number]) 1995 M Date Time Provider Department 11/03/23 9:15 AM CLAUDIA BRANDT [facility] During your visit today, we recorded the following information about you: Claudia Brandt APRN.CNP 11/03/2023 9:40 AM Signed Patient triaged at [facility]. Here today with right eye infection, pain, [...] Encounter Status:Closed by CLAUDIA BRANDT on 11/03/23 [facility] CNOVon 09-29-2023 CNOV Office Visit (UCWSTR) JOHN TOURE ([id number]) 1995 M Date Time Provider Department 09/29/23 11:15 AM SANDRA ALMAZAN [facility] During your visit today, we recorded the following information about you: Temperature Pulse Respiration Blood pressure 97.9 degrees 64/minute 18/minute 127/82 Weight 97.9 kg Sandra Almazan APRN.CNP 09/29/2023 11:32 AM Signed ASSESSMENT/PLAN: 1. Bacterial [...] discussed, (more content not included)... Normal [facility] EMERGENCY DEPARTMENTon 07-12 [place] [address] HEALTH INFORMATION MANAGEMENT EMERGENCY DEPARTMENT : [phone] Signed Patient: JOHN TOURE Acct:[id number] MRUN: [id number] : 1995 Sex: M Loc: ED ADM Date: 07/06/17 Room/Bed: DISC Date: 07/06/17 ED Sore Throat [...] Quality: sharp Consistency: constant Context: none Treatment ASSISTANT PRODUCT MANAGER: no prearrival treatment Fever: No - Related Data Home Medications: Home Medications Medication Instructions Recorded Confirmed Amox Tr/Potassium Clavulanate 1 tab PO BID #20 tablet 07/06/17 [Augmentin 875-125 Tablet] Hydrocodone Bit/Acetaminophen 1 tab PO Q6H PRN #6 tablet 07/06/17 [[place] 5/325 mg Tablet] Ibuprofen 800 mg PO [...] mood - Skin Skin Color: Present: Normal, Sharon Skin exam: Present: warm, dry - Expanded [...] BID #20 tablet 07/06/17 [Rx] Hydrocodone Bit/Acetaminophen [[place] 5/325 mg Tablet] 1 tab PO Q6H [...] tab PO Q6H PRN #6 tablet 07/06/17 [[place] 5/325 mg Tablet] Ibuprofen 800 mg PO TID PRN #30 tablet 07/06/17 Home medications and allergies reviewed: Yes Time Seen by Provider: 07/06/17 15:46 Patient seen by Midlevel: Independently - Consultation I saw and examined the patient: Yes Nurses Notes Reviewed and Agreed With?: Yes - Dictation Amendments/Documenta tion: [facility] Document Only Electronically Generated By: HELGA PRINGLE PA-C Generated Date/Time: 07/06/17 1636 Electronically Signed By: HELGA PRINGLE PA-C Signed Date/Time 07/06/17 2104 Co Signed Electronically By: Co Signed Date/Time: 07/12/17 0547 07/12/17 0547 CC[facility] Upper Respiratory Cult = Final reportPerformed at: [facility] [place], [place] [id number] Director: Fernie Martines PhD, Phone: [phone] D REPORT: Previous result was SEE BELOW at 13:05 on 07/08/17Upper Resp Result 1 = CommentRoutine respiratory floraPerformed at: [facility] [id number] [place], [place] [id number] Director: Fernie Martines PhD, Phone: [phone] Resp Result 2 = NPUpper Resp Result 3 = NPUpper Resp Result 4 = NPAntimicrobial Suscept = NPSource Upper Respiratory = throat Normal [facility] Comment on above: Performed By: #### M IC2 ####[address] [id number] Rapid Strep Aon 07-06-2017 Rapid strep test Negative Normal Negative [facility] Comment on above: Result Comment: Thro at culture reflexed. Performed By: #### S TREP ####[address] [id number](180) Vital Signs Date Time Vital Sign Value Performing Clinician Selma rosenthal 02-02-2025 08:02-0400 Body height 187.96 cm Fitz Jones MD Work Phone: [facility] 02-02-2025 08:02-0400 Body mass index (BMI) [Ratio] 28.2 kg/m2 Fitz Jones MD Work Phone: [facility] 02-02-2025 08:02-0400 Body weight 99.79 kg Fitz Jones MD Work Phone: [facility] 01-22-2025 08:01-0400 Body height 187.96 cm Fitz Jones MD Work Phone: [facility] 01-22-2025 08:01-0400 Body mass index (BMI) [Ratio] 28.1 kg/m2 Fitz Jones MD Work Phone: [facility] 01-22-2025 08:01-0400 Body weight 99.56 kg Fitz Jones MD Work Phone: [facility] 01-19-2025 00:36-0400 Body temperature 97.4 [degF] Fitz Jones MD Work Phone: [facility] 01-19-2025 00:36-0400 Diastolic blood pressure 95 mm[Hg] Fitz Jones MD Work Phone: [facility] 01-19-2025 00:36-0400 Heart rate 74 /min Fitz Jones MD Work Phone: [facility] 01-19-2025 00:36-0400 Respiratory rate 16 /min Fitz Jones MD Work Phone: [facility] 01-19-2025 00:36-0400 SaO2% (BldA) [Mass fraction] 99 % Fitz Jones MD Work Phone: [facility] 01-19-2025 00:36-0400 Systolic blood pressure 130 mm[Hg] Fitz Jones MD Work Phone: [facility] 01-18-2025 21:36-0400 Body height 187.96 cm Fitz Jones MD Work Phone: [facility] 01-18-2025 21:36-0400 Body mass index (BMI) [Ratio] 29 kg/m2 Fitz Jones MD Work Phone: [facility] 01-18-2025 21:36-0400 Body weight 102.6 kg Fitz Jones MD Work Phone: [facility] 11-03-2023 10:35-0400 Body temperature 98.3 [degF] [facility] 11-03-2023 10:35-0400 Diastolic blood pressure 69 mm[Hg] [facility] 11-03-2023 10:35-0400 Heart rate 70 /min [facility] 11-03-2023 10:35-0400 Respiratory rate 16 /min [facility] 11-03-2023 10:35-0400 SaO2% (BldA) [Mass fraction] 98 % [facility] 11-03-2023 10:35-0400 Systolic blood pressure 119 mm[Hg] [facility] 11-03-2023 09:43-0400 Body height 187.96 cm [facility] 11-03-2023 09:43-0400 Body mass index (BMI) [Ratio] 27.7 kg/m2 [facility] 11-03-2023 09:43-0400 Body weight 98 kg [facility] 09-29-2023 11:16-0500 Body temperature 97.9 [degF] Sandra Praisler-Wood FRAMING CONSULTANT.SEWER MAINTENANCE SUPERVISOR Work Phone: [facility] 09-29-2023 11:16-0500 Body weight 97.9 kg Sandar Praisler-Wood FRAMING CONSULTANT.SEWER MAINTENANCE SUPERVISOR Work Phone: [facility] 09-29-2023 11:16-0500 Diastolic blood pressure 82 mm[Hg] Sandra Praisler-Wood FRAMING CONSULTANT.SEWER MAINTENANCE SUPERVISOR Work Phone: [facility] 09-29-2023 11:16-0500 Heart rate 64 /min Sandra Praisler-Wood FRAMING CONSULTANT.SEWER MAINTENANCE SUPERVISOR Work Phone: [facility] 09-29-2023 11:16-0500 Respiratory rate 18 /min Sandar Praisler-Wood FRAMING CONSULTANT.SEWER MAINTENANCE SUPERVISOR Work Phone: [facility] 09-29-2023 11:16-0500 SaO2% (BldA) [Mass fraction] 97 % Sandra Praisler-Wood FRAMING CONSULTANT.SEWER MAINTENANCE SUPERVISOR Work Phone: [facility] 09-29-2023 11:16-0500 Systolic blood pressure 127 mm[Hg] Sandra Praisler-Wood FRAMING CONSULTANT.SEWER MAINTENANCE SUPERVISOR Work Phone: [facility] 12-09-2021 17:52-0400 Body temperature 98.6 [degF] Rio Velásquez MD Work Phone: [facility] 12-09-2021 17:52-0400 Body weight 97.7 kg Rio Velásquez MD Work Phone: [facility] 12-09-2021 17:52-0400 Diastolic blood pressure 64 mm[Hg] Rio Velásquez MD Work Phone: [facility] 12-09-2021 17:52-0400 Heart rate 66 /min Rio Velásquez MD Work Phone: [facility] 12-09-2021 17:52-0400 Respiratory rate 16 /min Rio Velásquez MD Work Phone: [facility] 12-09-2021 17:52-0400 SaO2% (BldA) [Mass fraction] 99 % Rio Velásquez MD Work Phone: [facility] 12-09-2021 17:52-0400 Systolic blood pressure 112 mm[Hg] Rio Velásquez MD Work Phone: [facility] Encounters Encounter Date Encounter Type Care Provider Facility Start: 02-25-2025 ambulatory Nolan Henao Facility :[facility] Start: 02-02-2025 End: 02-02-[address] Nolan Henao MD -[facility] Work Phone: Start: 02-02-2025 End: 02-02-2025 ambulatory Fitz Jones MD Work Phone: -[facility] Start: 01-22-2025 End: 01-22-2025 ambulatory Fitz Jones MD Work Phone: [facility] Start: 01-22-2025 End: 01-22-[address] Fitz Jones MD [facility] Work Phone: Start: 01-22-2025 End: 01-22-[address] Nolan Henao MD -[facility] Work Phone: Start: 01-22-2025 End: 01-22-2025 ambulatory Fitz Jones MD Work Phone: -[facility] Start: 01-22-2025 End: 01-22-2025 ambulatory Fitz Jones Facility:[facility] Start: 01-18-2025 End: 01-19-2025 Emergency department patient visit Fitz Jones MD Work Phone: -Emergency Department Work Phone: Start: 10-24-2024 Encounter for genera l adult medical examination without abnormal findings Fitz Jones [facility] Start: 10-11-2024 End: 10-11-2024 ambulatory Fitz Jones MD Work Phone: [facility] Work Phone: Start: 10-11-2024 End: 10-11-[address] Fitz Jones MD -Laboratory Work Phone: Start: 10-11-2024 End: 10-11-2024 ambulatory [facility] Facility:[facility] Start: 10-04-2024 End: 10-04-2024 ambulatory Fitz Jones MD Work Phone: [facility] Work Phone: Start: 10-04-2024 End: 10-04-[address] Fitz Jones MD -Ultrasound, [facility] Work Phone: Start: 10-04-2024 End: 10-04-2024 ambulatory [facility] Facility:[facility] Start: 07-19-2024 End: 07-19-[address] Fitz Jones MD -Laboratory Work Phone: Start: 07-19-2024 End: 07-19-2024 ambulatory [facility] Facility:[facility] Start: 11-03-2023 End: 11-03-2023 ambulatory Facility:[facility] Start: 11-03-2023 End: 11-03-2023 Emergency department patient visit [facility] Work Phone: Start: 11-03-2023 End: 11-03-2023 Patient encounter procedure Claudia Brandt APRN.SEWER MAINTENANCE SUPERVISOR Work Phone: [facility] Comment on above: Vision changes (Prim angelina Dx); Orbital cellulitis on right Start: 09-29-2023 End: 09-29-2023 ambulatory Facility:[facility] Start: 09-29-2023 End: 09-29-2023 Patient encounter procedure Sandra Almazan APRN.SEWER MAINTENANCE SUPERVISOR Work Phone: [facility] Comment on above: Bacterial sinusitis (Primary Dx); Bacterial conjunctivitis Start: 01-02-2022 Telephone encounter Rio King MD Work Phone: [facility] Comment on above: Prescription Request Start: 12-09-2021 End: 12-09-2021 Patient encounter procedure Rio Velásquez MD Work Phone: [facility] Comment on above: Contact dermatitis d ue to plant (Primary Dx) Start: 07-06-2017 End: 07-06-2017 Emergency department patient visit CATA PIERCE Facility: Procedures Date Procedure Procedure Detail Performing Clinician Start: 01-22-2025 MRI of joint of lowe r extremity Fitz Jones MD Work Phone: Start: 01-18-2025 Plain X-ray of shoulder Fitz Jones MD Work Phone: Start: 10-04-2024 Ultrasonography of abdomen Fitz Jones MD Work Phone: Plan of Treatment Date Care Activity Detail Author Start: 01-19-2025 [facility] Start: 03-23-2024 Influenza vaccination Influenza Vaccine (Season Ended) [facility] Start: 11-03-2023 [facility] Start: 07-23-2023 Behavioral Health Screening Behavioral Health Screening [facility] Start: 07-23-2023 Depression Assessment Depression Assessment [facility] Start: 03-23-2023 Covid-19 Vaccine ( season) Covid-19 Vaccine ( season) [facility] Start: 03-23-2023 Influenza vaccination Influenza Vaccine (#1) [facility] Start: 03-23-2022 Influenza vaccination INFLUENZA (Season Ended) [facility] Start: 01-28-2020 Urine microalbumin profile DTaP,Tdap,Td Vaccine (7 - Td or Tdap) [facility] Start: 2016 Urine microalbumin profile DTAP,TDAP,TD (1 - Tdap) [facility] Start: 2015 HEPATITIS C SCREENING HEPATITIS C SCREENING [facility] Start: 2015 Hepatitis C screening Hepatitis C Screening [facility] Start: 2015 HIV SCREENING HIV SCREENING [facility] Start: 2015 HIV screening HIV Screening [facility] Start: 2011 PEDS TO ADULT TRANSITION ANNUAL ASSESSMENT PEDS TO ADULT TRANSITION ANNUAL ASSESSMENT [facility] Start: 2009 Adult depression screening assessment DEPRESSION SCREENING [facility] Start: 2009 PEDS TO ADULT TRANSITION INITIAL DISCUSSION PEDS TO ADULT TRANSITION INITIAL DISCUSSION [facility] Start: 2008 HPV VACCINE (1 - Male 2-dose series) HPV VACCINE (1 - Male 2-dose series) [facility] Start: 2007 MENINGOCOCCAL B: Consider based on risk (1 of 2 - Risk Bexsero 2-dose series) MENINGOCOCCAL B: Consider based on risk (1 of 2 - Risk Bexsero 2-dose series) [facility] Start: 2002 COVID-19 VACCINE (#1) COVID-19 VACCINE (#1) [facility] Patient Education ED Periorbital Cellulitis [facility] Work Phone: Patient referral [facility] Work Phone: Serum testosterone measurement [facility] Testosterone Free [Mass/volume] in Serum or Plasma [facility] Immunizations Immunization Date Immunization Notes Care Provider Carmela bowen 04-09-2013 influenza virus vacc ine, unspecified formulation Sandra Almazan APRN.SEWER MAINTENANCE SUPERVISOR Work Phone: [facility] Payers Date Payer Category Payer Self-pay 2024 Unknown [id number] Self-pay [id number] Unknown [id number] Unknown [id number] 2.16.8 [id number] Unknown [id number] 2.16.8 [id number] Unknown [id number] 2.16.8 [id number] Unknown [id number] 2.16.8 [id number] Unknown [id number] 2.16.8 [id number] Unknown [id number] 2.16.8 [id number] Unknown [id number] 2.16.8 [id number] Unknown [id number] 2.16.8 [id number] Social History Date Type Detail Facility Start: 12-09-2021 End: 01-18-2025 Tobacco smoking status NHIS Never smoked tobacco [facility] Start: 12-09-2021 End: 09-29-2023 Tobacco use and exposure Smokeless tobacco non-user [facility] Start: 12-09-2021 End: 09-29-2023 Alcohol intake Current drinker of alcohol (finding) [facility] Start: 12-09-2021 History SDOH Alcohol Comment social [facility] Start: 1995 Sex Assigned At Not on file [facility] Start: 11-29-2021 End: 12-09-2021 Exposure to SARS-CoV-2 (event) Not sure [facility] Start: 09-29-2023 End: 10-01-2023 History of Social function [facility] Start: 09-29-2023 End: 10-01-2023 Tobacco use panel [facility] Start: 11-03-2023 Tobacco smoking stat us OKIS Unknown if ever smoked [facility] Start: 1995 Sex Assigned At Male [facility] National Score (1-100), lower number is lower risk 48 [facility] Start: 10-14-2024 End: 10-17-2024 Sex Male (finding) [facility] Clinical Notes 12-09-2021 to 02-02-2025 Note Date & Type Note Facility 02-02-2025 Progress note [facility] 02-02-2025 Progress note Note Date/Time February 02, 2025 8:37am [facility] [address] [place] [address] [address] [place] [address] OFFICE VISIT Date of Service: 02/02/25 MR#: [id number] Acct: [id number] Name: JOHN TOURE Rep #: [id number] : 1995 Provider: Dr. Kody Henao MD Age/Sex: 29/M Location: [facility].PATRICIA Status: Signed Intake Vital Signs 01/22/25 08:01 02/02/25 08:02 Height 6 ft 2 in 6 ft 2 in Weight: 219 lb 8 oz 220 lb BMI 28.1 28.2 Intake Visit Reasons: LEFT SHOULDER Chief Complaint: Left shoulder MRI review Accompanied by: Is patient in pain?: No Allergies No Known Allergies Allergy (Verified 02/02/25 08:08) Medications ?Medication ?Instructions ?Recorded ?Confirmed ?Type ibuprofen 200 mg capsule 200 mg PO Q6H PRN 02/02/25 0 02/02/25 History Have you fallen in the past year?: No PFSH Medical History (Updated 02/02/25 @ 08:22 by Nolan Henao MD) Tear of left glenoid labrum Other instability, left shoulder Surgical History H/O adenoidectomy Social History Smoking Status: Never smoker HPI LEFT SHOULDER Details: This documentation accurately reflects the service provided and the decisions made by me, Dr. Nolan Henao MD 02/02/25 0802. Part of today?s visit was documented by [ ], acting as scribe. JOHN TOURE is a 29 year old M here today for FU L shoulder MRI. Patient needed a new note for work he does most activities with his right upper extremity wants a new note to that effect. He is here with his today. Ortho Exam General General: Yes no acute distress Neurologic: Yes alert and Yes oriented x3 Psychologic: Yes reasonable and appropriate Supplemental Info [facility] Imaging Services [address] [place], [place] [id number] Upper Ext Joint Only(Routine) MR#: [id number] Acct: [id number] Name: JOHN TOURE Rep #: [id number] : 1995 M 29 From: Austyn Boateng MD PCP: Dr. Fitz Jones MD Status: [facility] Study: Upper Ext Joint Only(Routine) Date of Exam: 01/22/25 Exam# [id number] Ordering Dr: iFtz Jones MD PROCEDURE: UPPER EXT JOINT ONLY(ROUTINE) 01/22/2025 REASON FOR EXAM: SHOULDER LEFT TECHNIQUE: UPPER EXT JOINT ONLY(ROUTINE) Multiplanar and multisequence images were obtained without IV contrast administration. COMPARISON: COMPARISON: January 18, 2025 x-ray FINDINGS: Bone Marrow: There is a recent depressed reverse Hill-Sachs fracture in the anterior medial humeral head with marrow edema consistent with posterior dislocation. There is subcortical edema in the posterior glenoid. Rotator cuff: There is no muscular atrophy. There is moderate distal infraspinatus tendinopathy without full-thickness tear, with subcortical cyst formation noted deep to the insertion. The supraspinatus,subscapularis, and teres minor appear intact. Labrum: There is a full-thickness tear of the anterior labrum with medial stripping of the periosteum at the glenoid neck. There is a full-thickness tear of the posterior inferior labrum. There is no paralabral cyst. There is a edema and attenuation in the posterior aspect of the inferior glenohumeral ligament at the glenoid. AC joint: The AC joint is aligned without evidence of separation. There is a type 2 acromion. Biceps tendon: The biceps tendon is present in the biceps tendon groove, with intact anchors. Effusion: There is a large joint effusion. There is a trace amount of fluid in the subacromial subdeltoid bursa, with bursitis. MRI/Upper Ext Joint Only(Routine) IMPRESSION: There is a recent depressed reverse Hill-Sachs fracture in the anterior medial humeral head with marrow edema consistent with posterior dislocation. There is subcortical edema in the posterior glenoid. There is moderate distal infraspinatus tendinopathy without full-thickness tear,with subcortical cyst formation noted deep to the insertion. There is a full-thickness tear of the anterior labrum with medial stripping of the periosteum at the glenoid neck. There is a full-thickness tear of the posterior inferior labrum. There is a edema and attenuation in the posterior aspect of the inferior glenohumeral ligament at the glenoid. There is a large joint effusion. There is a trace amount of fluid in the subacromial subdeltoid bursa, with bursitis. Reading Location: [facility] independently reviewed the imaging. Concur with radiologist report. Coding Level of Care Code Off vis,est,level 4 Diagnoses Other instability, left shoulder M25.312 Tear of left glenoid labrum S43.432A Assessment and Plan Assessment and Plan (1) Other instability, left shoulder: Status: Acute Plan: 29-year-old man with a left shoulder instability episode and circumferential labral tear. The options here would be conservative management with physical therapy for strengthening and activity modifications versus surgery for labrum repair. Surgery would most likely have a lower chance of recurrence and long-term better stability of the shoulder. We discussed the pros cons risk benefitsas well as the recovery associated with the surgical labral repair 2 weeks in a sling and 4 months before going back to dangerous activities he understands wished to proceed with left shoulder arthroscopy, labral repair. Pros and cons risks and benefits were discussed with the patient including but not limited to infection, pain, stiffness, bleeding, damage to surrounding structures, neurovascular injury, recurrence or retear, failure or wear of hardware or fixation, instability, fracture, deep vein thrombosis and pulmonary embolism, anesthetic risks, , patient dissatisfaction, need for further surgery and other risks. Patient understood and wished to proceed with surgery,and signed the informed consent documentation. (2) Tear of left glenoid labrum: Status: Acute Clinical Quality Measures Falls Risk Screening/Assistive Devices Have you fallen in the past year?: No 02/02/25 0837 <Electronically signed by Nolan diaz MD> Date _ Nolan Henao MD Cosigner Signature: Date (if applicable) CC: ~ [employer] Work Phone: 1(589) 138-120107-03-2025 Evaluation note* Diagnosis Onset Date Resolution Status Admit Date Left shoulder pain inactive January 222024 7:58am [facility] Work Phone: 1(328) 430-793007-03-2025 Evaluation note* Diagnosis Onset Date Resolution Status Admit Date Left shoulder pain inactive January 222024 7:58am Other instability, left shoulder acute February 02, 2025 8:01am Tear of left glenoid labrum acute February 02, 2025 8:01am [facility] Work Phone: 1([phone] 288-350106-30-2025 Radiology Diagnostic study note [facility] Imaging Services [address] [place] [address] Shoulder min 2 Views MR#: [id number] Acct: [id number] Name: JOHN TOURE Rep #: [id number] : 1995 M 29 From: Briana Solorzano MD PCP: Dr. Fitz Jones MD Status: REG ER Study:Shoulder min 2 Views Date of Exam: 01/18/25 Exam# [id number] Ordering Dr: Dimitri Mcclellan DO PROCEDURE: SHOULDER MIN 2 VIEWS 01/18/2025 REASON FOR EXAM: SHOULDER PAIN TECHNIQUE: SHOULDER MIN 2 VIEWS COMPARISON: No FINDINGS: No acute bone, soft tissue, or lung pathology. No degeneration. RAD/Shoulder min 2 Views IMPRESSION: No acute findings Reading Location[facility] CC: Dr. Fitz Jones MD; Dr. Perez Mcclellan DO ~ Addictions Recovery Specialist: Signed [facility]06-30-2025 Discharge summary [facility] Medical Records Department [address] [place] [address] Emergency Department Summary 01/19/25 MR#: [id number] Acct: [id number] Name: JOHN TOURE Rep #:[id number] : 1995 29 From: Perez Mcclellan DO PCP: Dr. Fitz Jones MD Status:REG ER Location: ED HPI History of Present Illness Chief Complaint: Upper Extremity Injury Narrative Narrative: 29-year-old male who presented to the emergency department with the chief complaint of left shoulder pain. He states that his pain golf this week on Sunday and noted that when he went to hit the ball he developed left shoulder pain that persisted through the weekend. He states that he was going to try to go to urgent care tomorrow but is concerned that something serious may be going on therefore he came here to be further evaluated. Patient states that he did not take anything for pain control denies any direct trauma to the shoulder. PFSH PFS Medical History no medical history Home Medications ?Medication ?Instructions ?Recorded ?Last Taken ?Type amoxicillin 875 mg-potassium 1 tab PO BID #20 tabs Unknown Rx clavulanate 125 mg tablet Allergy/AdvReac Type Severity Reaction Status Date / Time No Known Allergies Allergy Verified 01/18/25 21:36 Family History no significant family his Surgical History H/O adenoidectomy Social History Smoking Status: Never smoker ROS ROS ED ROS Narrative Constitutional: Denies any fevers, chills, headache Cardiovascular: Denies chest pain Respiratory: Denies shortness of breath Neurological: Denies any numbness, weakness, tingling Musculoskeletal: Complains of left shoulder pain as noted above Skin: Denies any rashes or lesions EXAM Physical Exam Narrative Exam Narrative: General: Patient lying in bed rest comfortably did not appear to be in acute distress Head: Atraumatic, normocephalic Eyes: PERRL bilaterally, EOMI by, no conjunctival injection noted Neck: Soft, supple, trachea midline Cardiovascular: [ ] Respiratory: Clear to auscultation bilaterally no rales rhonchi or wheeze noted Abdomen: Soft, nondistended, nontender to palpation Musculoskeletal: Patient has full range of motion of his left shoulder, radial pulse +2/4 in the bilateral extremities, positive empty can test Extremities: +5/5 strength in the bilateral upper and lower extremities, Neurological: Patient follow commands knew that he was at [facility] . Sensation grossly intact in the axillary nerve distribution bilaterally, radial, ulnar and median nerve distributions bilaterally Skin: No rashes or lesions noted Const Vital Signs: 01/18/25 21:36 Temperature 97.4 F L Temperature Source Temporal Pulse Rate 71 Respiratory Rate 18 Blood Pressure 148/82 H Blood Pressure Mean 104 Pulse Ox 100 Oxygen Delivery Method Room Air MDM MDM MDM Narrative Medical decision making narrative: Patient is a 29-year-old male who presented to the emergency department the chief complaint of leftshoulder pain after golfing this weekend. On the differential diagnosis clued but limited to labraltear, supraspinatus tear, dislocation, pathologic fracture. Once workup is obtained reviewed he will be reevaluated. Patient was ordered Toradol however he states that he does not want this at this point time. Patient's x-ray of his shoulder was reviewed by myself and official read per radiology still pending it has been a significant time the patient would like togo home at this point in time. I did not appreciate any acute fractures or dislocations. We discussed stain and waiting longer for the official read versus if anything is abnormal we will give him a call back in regards to this finding. He would like to go home at this point time he is requesting work notehe is advised to rotate Tylenol andibuprofen [id number] and follow-up with Dr. Padilla in the outpatient setting. He is encouraged return with worsening symptoms and concerns. He is agreeable this plan as well as significant other bedside all question concerns answered he is discharged home in stable condition Discharge Plan Triage Chief Complaint: Upper Extremity Injury ED Provider: Perez Mcclellan Dx/Rx/DC Orders Clinical Impression: Left shoulder pain Prescriptions: No Action amoxicillin-pot clavulanate 875-125 mg tablet 1 tab PO BID Qty: 20 0RF Primary Care Provider: Fitz Jones Referrals: Fitz Jones MD [Primary Care Provider] - Reed Padilla MD [Med Staff - Active Staff] - Activity Restrictions/Additional Instructions: Your x-ray did not show any acute fractures or dislocations. Follow-up with in the outpatient setting rotate Tylenol and I Profen [id number] when you do this he can take something every 3 hours max dose of Tylenol 4000 mgin 24 hours. Max dose of ibuprofen 3200 mg in 24 hours. Returnwith worsening symptoms or other concerns Print Language: Andorran Disposition Disposition: Home, Self Care What to do if you have Problems For any increased pain, shortness of breath, bleeding, nausea or vomiting, chestpain, or any unexpected problems, contact your Primary Care Provider. Call [facility] ([phone]) or report tothe closest Emergency Room. Call 911 if necessary. 01/19/25 0033 Cosigner Signature (if applicable): CC: Dr. Fitz Jones MD ~ Signed [facility]03-15-2025 Radiology Diagnostic study note [facility] Imaging Services [address] [place] [address] Abdomen Limited MR#: [id number] Acct: [id number] Name: JOHN TOURE Rep #: [id number] : 1995 M 29 From: Isai Wood DO PCP: Dr. Fitz Jones MD Status: REG CL I Study:Abdomen Limited Date of Exam: 09/20 12/14 Exam# [id number] Ordering Dr: Caterina Jones MD PROCEDURE: Right [...] US/Abdomen Limited IMPRESSION: Hepatic steatosis. Reading Location: [facility] CC: Dr. Fitz Jones MD ~ Addictions Recovery Specialist: Signed [facility]04-13-2024 NoteHNO ID: [id number] Author: CLAUDIA BRANDT APRN.MANI Service: ? Author Type: Nurse Practitioner Type: Progress Notes Filed: 11/03/2023 09:40 Note Text: Patient triaged at [facility]. Here today with right eye infection, pain, slight fever. Reports change in color vision of infected eye. I will refer to ER [facility]04-13-2024 History of Present illness Narrative* Claudia Brandt APRN.SEWER MAINTENANCE SUPERVISOR - 11/03/2023 9:39 AM EDT Patient triaged at [facility]. Here today with right eye infection, pain, slight fever. Reports change in color vision of infected eye. I will refer to ER [facility]24 NoteHNO ID: [id number] Author: SANDRA ALMAZAN APRN.MANI Service: ? Author Type: Nurse Practitioner [...] Discussed expected course of illness Sandra Almazan APRN.[facility]03-09-2024 History of Present illness Narrative* Sandra Almazan APRN.SEWER MAINTENANCE SUPERVISOR - 09/29/2023 11:32 AM EST Images from the original note were not [...] illness Sandra Almazan APRN.MANI documented in [facility]The [facility]-09-2024 Instructions* Patient Instructions* Sandra Almazan APRN.CNP - 09/29/2023 11:32 AM EST ASSESSMENT/PLAN: 1. [...] Discussed expected course of illness Sandra Almazan APRN.SEWER MAINTENANCE SUPERVISOR documented in this [facility]The [facility]-20-2022 History of Present illness Narrative* Rio Velásquez MD - 12/09/2021 5:54 PM EDT Patient presents with: Rash: Pt reported possible poison sri face, arms upper torso x3 days HPI: Rash: Location: Face, arms Duration: 3 days Pruritis: Yes Pain: No Change: Spreading and worsening Bleeding/ulceration/blister/pustule: Seeping clear-yellow fluid Contacts with rash: No Exposure: No new soaps, detergents, fabric softeners, lotions. Outdoor exposure: Cutting a tree theday before the rash started. Change in medications: [...] fever/malaise. Rio Velásquez MD documented in [facility] encounterSt[facility] ClinicDis[facility] summary Author Adrián Newton [facility] November 03, 2023 10:27am Note Date/Time November 03, 2023 10: 27am [facility] Medical Records Department [address] [place] [address] Emergency Department Summary 11/03/23 MR#: [id number] Acct: [id number] Name: JOHN TOURE Rep #:[id number] : [...] morning with his eyes swollen shut. PFSH PFSH Home Medications amoxicillin 875 mg-potassium clavulanate 125 [...] CT imaging. He was referred to the machine setter supervisor on-call and a prescription for Augmentin was [...] your Primary Care Provider. Call [facility] ([phone]) or report to the closest Emergency Room. Call 911 if necessary. 11/03/23 1027 <Electronically signed by Adrián Newton MD> Cosigner Signature (if applicable): CC: No Primary Care Physician ~ Signed [facility] Work Phone: Discharge summary Author Perez Mcclellan [facility] Note Date/Time January 19, 2025 12:3 3am [facility] Medical Records Department [address] [place] [address] Emergency Department Summary 01/19/25 MR#: [id number] Acct: [id number] Name: JOHN TOURE Rep #:[id number] : 1995 29 From: Perez Mcclellan DO PCP: Dr. Fitz Jones MD Status:REG ER Location: ED HPI History of Present Illness Chief Complaint: Upper Extremity Injury Narrative Narrative: 29-year-old male who presented to the emergency department with the chief complaint of left shoulder pain. He states that his pain golf this week on Sunday and noted that when he went to hit the ball he developed left shoulder pain that persisted through the weekend. He states that he was going to try to go to urgent care tomorrow but is concerned that something serious may be going on therefore he came here to be further evaluated. Patient states that he did not take anything for pain control denies any direct trauma to the shoulder. PFSH PFSH Medical History no medical history Home Medications ?Medication ?Instructions ?Recorded ?Last Taken ?Type amoxicillin 875 mg-potassium 1 tab PO BID #20 tabs Unknown Rx clavulanate 125 mg tablet Allergy/AdvReac Type Severity Reaction Status Date / Time No Known Allergies Allergy Verified 01/18/25 21:36 Family History no significant family his Surgical History H/O adenoidectomy Social History Smoking Status: Never smoker ROS ROS ED ROS Narrative Constitutional: Denies any fevers, chills, headache Cardiovascular: Denies chest pain Respiratory: Denies shortness of breath Neurological: Denies any numbness, weakness, tingling Musculoskeletal: Complains of left shoulder pain as noted above Skin: Denies any rashes or lesions EXAM Physical Exam Narrative Exam Narrative: General: Patient lying in bed rest comfortably did not appear to be in acute distress Head: Atraumatic, normocephalic Eyes: PERRL bilaterally, EOMI by, no conjunctival injection noted Neck: Soft, supple, trachea midline Cardiovascular: [ ] Respiratory: Clear to auscultation bilaterally no rales rhonchi or wheeze noted Abdomen: Soft, nondistended, nontender to palpation Musculoskeletal: Patient has full range of motion of his left shoulder, radial pulse +2/4 in the bilateral extremities, positive empty can test Extremities: +5/5 strength in the bilateral upper and lower extremities, Neurological: Patient follow commands knew that he was at [facility] . Sensation grossly intact in the axillary nerve distribution bilaterally, radial, ulnar and median nerve distributions bilaterally Skin: No rashes or lesions noted Const Vital Signs: 01/18/25 21:36 Temperature 97.4 F L Temperature Source Temporal Pulse Rate 71 Respiratory Rate 18 Blood Pressure 148/82 H Blood Pressure Mean 104 Pulse Ox 100 Oxygen Delivery Method Room Air MDM MDM MDM Narrative Medical decision making narrative: Patient is a 29-year-old male who presented to the emergency department the chief complaint of left shoulder pain after golfing this weekend. On the differential diagnosis clued but limited to labral tear, supraspinatus tear, dislocation, pathologic fracture. Once workup is obtained reviewed he will be reevaluated. Patient was ordered Toradol however he states that he does not want this at this point time. Patient's x-ray of his shoulder was reviewed by myself and official read per radiology still pending it has been a significant time the patient would like togo home at this point in time. I did not appreciate any acute fractures or dislocations. We discussed stain and waiting longer for the official read versus if anything is abnormal we will give him a call back in regards to this finding. He would like to go home at this point time he is requesting work notehe is advised to rotate Tylenol and ibuprofen [id number] and follow-up with Dr. Padilla in the outpatient setting. He is encouraged return with worsening symptoms and concerns. He is agreeable this plan as well as significant other bedside all question concerns answered he is discharged home in stable condition Discharge Plan Triage Chief Complaint: Upper Extremity Injury ED Provider: Perez Mcclellan Dx/Rx/DC Orders Clinical Impression: Left shoulder pain Prescriptions: No Action amoxicillin-pot clavulanate 875-125 mg tablet 1 tab PO BID Qty: 20 0RF Primary Care Provider: Fitz Jones Referrals: Fitz Jones MD [Primary Care Provider] - Reed Padilla MD [Med Staff - Active Staff] - Activity Restrictions/Additional Instructions: Your x-ray did not show any acute fractures or dislocations. Follow-up with in the outpatient setting rotate Tylenol and I Profen [id number] when you do this he can take something every 3 hours max dose of Tylenol 4000 mgin 24 hours. Max dose of ibuprofen 3200 mg in 24 hours. Return with worsening symptoms or other concerns Print Language: Andorran Disposition Disposition: Home, Self Care What to do if you have Problems For any increased pain, shortness of breath, bleeding, nausea or vomiting, chestpain, or any unexpected problems, contact your Primary Care Provider. Call [facility] ([phone]) or report to the closest Emergency Room. Call 911 if necessary. 01/19/25 0033 <Electronically signed by Perez Mcclellan DO> Cosigner Signature (if applicable): CC: Dr. Fitz Jones MD ~ Signed [facility] Work Phone: Evaluation note* Diagnosis Contact dermatitis due to plant- Primary Contact dermatitis and other eczema due to plants (except food) documented [facility]* Diagnosis Bacterial sinusitis- Primary Unspecified sinusitis (chronic) Bacterial conjunctivitis Other conjunctivitis documented in this encounter [facility] noteNo assessment information availableWOhioHealth [facility] Work Phone: Evaluation note* Diagnosis Vision changes- Primary Unspecified visual disturbance Orbital cellulitis on right Orbital cellulitis documented in this encounter [facility] note* Diagnosis Onset Date Resolution Status Admit Date Left shoulder pain acute January 222024 7:58am [facility] Work Phone: Hospital Discharge instructionsAdditional Instructions Your x-ray did not show any acute fractures or dislocations. Follow-up with Dr. Padilla in the outpatient setting rotate Tylenol and I Profen [id number] when you do this he can take something every 3 hours max dose of Tylenol 4000 mg in 24 hours. Max dose of ibuprofen 3200 mg in 24 hours. Return with worsening symptoms or other concernsWOhioHealth Berger Hospital Work Phone: Hospital Discharge instructionsAmbulatory Orders* PT Referral Location: None Selected [facility] Work Phone: Reason for referral (narrative)No reason for referral information availableWOhioHealth Berger Hospital Work Phone: Summary Purpose Family History No Family History Records FoundNo Family History Records FoundNo Family History Records Found Advance Directives No Advanced Directives Records Found Advance Directive Response Recorded Date/ Time Living Will No November 03, 2023 10:24am Power of Store Operations Specialist No November 02 10:24am Advance Directive Response Recorded Date/ Time Do you have a Healthcare Power of Store Operations Specialist? No January 18, 2025 9:51pm Chief Complaint and Reason for Visit Chief Complaint CELLULITIS Chief Complaint Admit Date Abnormal levels of other serum enzymes [facility] 2024 9:14am Chief Complaint Admit Date Abnormal levels of other serum enzymes [facility] 15th, 2025 9:14am shoulder injury January 18, 2025 9:33 pm Chief Complaint Admit Date Abnormal levels of other serum enzymes [facility] 2024 9:14am shoulder injury January 18, 2025 9:33 pm LEFT SHOULDER January 22, 2025 7:58a m Reason for Visit Admit Date Left shoulder pain January 22, 2025 7:58a m Chief Complaint Admit Date Abnormal levels of other serum enzymes [facility] 2024 9:14am shoulder injury January 18, 2025 9:33 pm LEFT SHOULDER January 22, 2025 7:58a m pain in unspecified shoulder January 22 9:20am Chief Complaint Admit Date shoulder injury January 18, 2025 9:33 pm LEFT SHOULDER January 22, 2025 7:58a m pain in unspecified shoulder January 22 9:20am LEFT SHOULDER February 02, 2025 8:01 am Reason for Visit Admit Date Left shoulder pain January 22, 2025 7:58a m Other instability, left shoulder February 022024 8:01am Tear of left glenoid labrum February 02 8:01am Additional Source Comments (unrecognized sect ion and content) No Status Records FoundNo Status Records FoundNo Status Records Found INFORMATION SOURCE (unrecogn ized section and content) DATE CREATED AUTHOR 01/15/2018 [facility] DATE CREATED AUTHOR AUTHOR'S ORGANIZ ATION 11/04/2023 [facility] DATE CREATED AUTHOR AUTHOR'S ORGANIZ ATION 02/17/2025 [facility] Source Comments (unrecognize d section and content) In the event this informatio n is protected by the Federal Confidentiality of Alcohol and Drug Abuse Patient Records regulations: The Federal rules restrict any use of the information to criminally investigate or prosecute any alcohol or drug abuse patient.[facility]woodsIn the event this information is protected by the Federal Confidentiality of Alcohol and Drug Abuse Patient Records regulations: The Federal rules restrict any use of the information to criminally investigate or prosecute any alcohol or drug abuse patient.[facility]woodsIn the event this information is protected by the Federal Confidentiality of Alcohol and Drug Abuse Patient Records regulations: The Federal rules restrict any use of the information to criminally investigate or prosecute any alcohol or drug abuse patient.[facility]woodsIn the event this information is protected by the Federal Confidentiality of Alcohol and Drug Abuse Patient Records regulations: The Federal rules restrict any use of the information to criminally investigate or prosecute any alcohol or drug abuse patient.[facility] Reason for Visit (unrecogniz ed section and content) Reason Comments Rash Pt reported possible poison sri face, arms upper torso x3 days Specialty Diagnoses / Procedures Referred By Contac t Referred To Contact Family Practice / [facility] Diagnoses possible poison sri all over Procedures URGENT CARE Self Rio Velásquez MD [address] [place] [address] Referral ID Status Reason Start Date Expiration Date Visits Requested Visits Authorized [id number] Pending Review Financial Clearance Required - Self Pay 12/09/2021 03/09/2022 1 1 Reason Comments Prescription Request Reason Comments Eye Problem Left eye swelling, p ressure and scratchy since 4 am Specialty Diagnoses / Procedures Referred By Bertha t Referred To Contact Internal Medicine / [facility] Diagnoses R eye swollen shut Procedures EST SAME DAY Ana Lee V, MD [address] [place] [address] [facility] [address] [place] [address] Referral ID Status Reason Start Date Expiration Date Visits Requested Visits Authorized [id number] Pending Review Financial Clearance Required - Self Pay 11/03/2023 02/01/2024 1 1 Care Teams (unrecognized sec tion and content) Team Status: Active Member Role Status Alexys No Primary Care Physician Primary Care Provider [...] October 11, 2024 End: October 11, 2024 Team Status: Active Member Role/Relationship Status Alexys Jones MD Primary Care Provider Active Team Status: Inactive Member Role/Relationship Status Alexys Jones MD Primary Care Provider Active St art: October 04, 2024 End: October 04, 2024 Fitz Jones MD Attending Provider Active Start : October 04, 2024 End: October 04, 2024 Fitz Jones MD Referring Provider Active Start : October 04, 2024 End: October 04, 2024 Team Status: Inactive Member Role/Relationship Status Alexys Jones MD Primary Care Provider Active St art: October 11, 2024 End: October 11, 2024 Fitz Jones MD Attending Provider Active Start : October 11, 2024 End: October 11, 2024 Fitz Jones MD Referring Provider Active Start : October 11, 2024 End: October 11, 2024 Team Status: Inactive Member Role/Relationship Status Alexys Jones MD Primary Care Provider Active St art: January 18, 2025 End: January 19, 2025 Dr. Perez Mcclellan DO Referring Provider Active Start: January 18, 2025 End: January 19, 2025 Dr. Perez Mcclellan DO Emergency Provider Active Start: January 18, 2025 End: January 19, 2025 Team Status: Inactive Member Role/Relationship Status Alexys Jones MD Primary Care Provider Active St art: January 18, 2025 End: January 19, 2025 Dr. Perez Mcclellan DO Attending Provider Active Start: January 18, 2025 End: January 19, 2025 Dr. Perez Mcclellan DO Referring Provider Active Start: January 18, 2025 End: January 19, 2025 Dr. Perez Mcclellan DO Emergency Provider Active Start: January 18, 2025 End: January 19, 2025 Team Status: Inactive Member Role/Relationship Status Alexys Jones MD Primary Care Provider Active St art: January 22, 2025 End: January 22, 2025 Fitz Jones MD Referring Provider Active Start : January 22, 2025 End: January 22, 2025 Nolan Henao MD Attending Provider Active St art: January 22, 2025 End: January 22, 2025 Team Status: Inactive Member Role/Relationship Status Alexys Jones MD Primary Care Provider Active St art: January 22, 2025 End: January 22, 2025 Fitz Jones MD Attending Provider Active Start : January 22, 2025 End: January 22, 2025 Fitz Jones MD Referring Provider Active Start : January 22, 2025 End: January 22, 2025 Team Status: Inactive Member Role/Relationship Status Alexys Jones MD Primary Care Provider Active St art: October 11, 2024 End: October 11, 2024 Fitz Jones MD Attending Provider Active Start : October 11, 2024 End: October 11, 2024 Fitz Jones MD Referring Provider Active Start : October 11, 2024 End: October 11, 2024 Team Status: Inactive Member Role/Relationship Status Alexys Jones MD Primary Care Provider Active St art: January 18, 2025 End: January 19, 2025 Dr. Perez Mcclellan DO Attending Provider Active Start: January 18, 2025 End: January 19, 2025 Dr. Perez Mcclellan DO Referring Provider Active Start: January 18, 2025 End: January 19, 2025 Dr. Perez Mcclellan DO Emergency Provider Active Start: January 18, 2025 End: January 19, 2025 Team Status: Inactive Member Role/Relationship Status Alexys Jones MD Primary Care Provider Active St art: January 22, 2025 End: January 22, 2025 Fitz Jones MD Referring Provider Active Start : January 22, 2025 End: January 22, 2025 Nolan Henao MD Attending Provider Active St art: January 22, 2025 End: January 22, 2025 Team Status: Inactive Member Role/Relationship Status Alexys Jones MD Primary Care Provider Active St art: January 22, 2025 End: January 22, 2025 Fitz Jones MD Attending Provider Active Start : January 22, 2025 End: January 22, 2025 Fitz Jones MD Referring Provider Active Start : January 22, 2025 End: January 22, 2025 Team Status: Inactive Member Role/Relationship Status Alexys Jones MD Primary Care Provider Active St art: February 02, 2025 End: February 02, 2025 Fitz Jones MD Referring Provider Active Start : February 02, 2025 End: February 02, 2025 Nolan Henao MD Attending Provider Active art: February 02, 2025 End: February 02, 2025 Goals (unrecognized section and content) Goals may [...] BE BASED ON THE PRIMARY CLINICAL RECORDS. [employer] [facility]. provides no warranty or guarantee of the accuracy or completeness of information in this document.
--- NOTE | 2025-02-25 09:02 | PCM.PRE.AN2 ---
ASA Classification* ASA Classification ASA Classification: 2 Assessment & Plan Anesthesia* Anesthesia Assessment Anesthesia Assessment: Discussed sedation and/or anesthesia options, risks, benefits, and alternatives with patient/parents/legal guardian/POA. Questions invited. The patient/parents/legal guardian/POA seems to understand and agrees to proceed with anesthesia plan. Reviewed the physical assessment, medical history, allergy history and patient home medications list prior to surgery/procedure/anesthetic and documented any changes. Performed airway and anesthesia risk assessments. Anesthesia Type Anesthesia Type: General and Block Anesthesia Focused Assessment* Temperature: 97.5 F Pulse Rate: 80 Blood Pressure: 129/86 Respiratory Rate: 16 Pulse Ox: 16 Airway Assessment Mouth opens: >3 cm Mallampati Score: II Labs Anesthesia Preop lab: CBC WBC 8.0 K/mm3 (4.4-11.0) 07/19/24 08:19 07/19/24 RBC 5.02 M/mm3 (4.6-6.2) 07/19/24 08:19 07/19/24 Hgb 14.5 g/dL (13.0-16.5) 07/19/24 08:19 07/19/24 Hct 43.7 % (40-54) 07/19/24 08:19 07/19/24 Plt Count 372 K/mm3 (150-450) 07/19/24 08:19 07/19/24 CHEMISTRY Potassium 4.0 mmol/L (3.5-5.1) 07/19/24 08:19 07/19/24 Sodium 138 mmol/L (136-145) 07/19/24 08:19 07/19/24 BUN 14 mg/dL (7-18) 07/19/24 08:19 07/19/24 Creatinine 0.95 mg/dL (0.70-1.30) 07/19/24 08:19 07/19/24 Glucose 100 mg/dL (74-106) 07/19/24 08:19 07/19/24 TSH 2.820 uIU/mL (0.358-3.740) 07/19/24 08:19 07/19/24 COAG Pre-Assessment Diagnosis/Proposed Procedure Planned Operative Procedure(s): LEFT SHOULDER ARTHROSCOPY LABRUM STABLIZATION Anesthesia History 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 When Was Last Pacemaker Check QUESTION #4 FULL TEXT: You/Your Family Experience fever (hyperthermia) with Anesthesia Last Oral Intake Last Oral intake: Last Oral Intake NPO since 20:00 02/25/25 08:53 Meds taken in AM with sips of No 02/25/25 08:53 water? Meds patient instructed to take am of surgery PONV PONV - metal treater: PONV - metal treater Female No 02/11/25 12:58 HX of Motion Sickness Yes 02/11/25 12:58 HX of N/V After Surgery No 02/11/25 12:58 Non-Smoker Yes 02/11/25 12:58 Duration of Surgery greater Yes 02/11/25 12:58 than 60 minutes Number of Risk Factors 3 02/11/25 12:58 PONV Score Moderate Risk 02/11/25 12:58 Height & Weight Height & Weight: Anesthesia: Height & Weight Height 6 ft 2 in 02/25/25 08:53 Weight: 99 kg 02/25/25 08:53 Body Mass Index (BMI) 28.0 02/25/25 08:53 Respiratory Assessment Respiratory Assessment - metal treater: Respiratory Tract Infection Hx - metal treater Hx Respiratory Tract Infection No 02/11/25 12:58 STOP Sleep Apnea STOP Sleep Apnea - metal treater: STOP Sleep Apnea - metal treater Hx Hypertension No 02/11/25 12:58 Hx Sleep Apnea No 02/11/25 12:58 CPAP BIPAP Do you snore loudly (louder Yes 02/11/25 12:58 than talking or can be heard Do you often feel tired/ No 02/11/25 12:58 fatigued/ sleepy during daytime? Has anyone observed you stop No 02/11/25 12:58 breathing during sleep? STOP Results Negative 02/11/25 12:58 QUESTION #5 FULL TEXT : Do you snore loudly (louder than talking or can be heard through closed doors)? 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 Specify any problems Hx of Preganancy in last 3 N/A 02/11/25 12:58 Months Nurse Filling Out Transfusion DSCHRIBER 02/11/25 12:58 & Questions: Date: 02/11/25 02/11/25 12:58 Time: 13:00 02/11/25 12:58 Patient unable to answer at this time (ie. confused, unrespo /Reproduction History /Reproductive History - metal treater: /Reproductive Hx- metal treater Hx Now No 02/11/25 12:58 Gestational Age (in weeks): EDC: Hx Hx Para Hx Section SAB No 02/11/25 12:58 Active Medications Active Medications: Current Medications Generic Name Dose Route Start Last Admin Trade Name Freq PRN Reason Stop Dose Admin Cefazolin Sodium 2 gm/ Sodium 110 mls @ 200 mls/hr 02/25/25 09:30 Chloride IV 02/25/25 10:02 INTRAOP ONE Lactated Ringer's 1,000 mls @ 15 mls/hr 02/25/25 08:45 02/25/25 08:59 IV 15 mls/hr .Q48H RAMONA Administration PFSH Medical History Alcohol use Fatty liver Syncope Heartburn Leg cramps Non-smoker Tear of left glenoid labrum Other instability, left shoulder Home Medications ?Medication ?Instructions ?Recorded ?Last Taken ?Type ibuprofen 200 mg capsule 200 mg PO Q6H PRN pain 02/02/25 Unknown History Allergy/AdvReac Type Severity Reaction Status Date / Time No Known Allergies Allergy Verified 02/11/25 12:57 Surgical History History of myringotomy H/O adenoidectomy Social History Smoking Status: Never smoker Review of Systems (Anesthesia) ROS Narrative System reviewed and no additional complaints, except as documented.
--- NOTE | 2025-02-25 09:43 | PCM.HP.STD ---
HPI - General HPI Narrative JOHN TOURE, is a 29 M who presents for left shoulder arthroscopy, labral repair. no changes to h and p. rab, post op instructions, and narcotic counselling (patient wants ibuprofen called in as well to try and minimize narc use). left shoulder marked. ok to proceed. no further questions or concerns. MR#: [id number] Acct: [id number] Name: JOHN TOURE Rep #: [id number] : 1995 Provider: Dr. Nolan Henao MD Age/Sex: 29/M Location: [facility] [place].PATRICIA Status: Signed Intake Vital Signs 01/23/2508:01 02/03/2508:02 Height 6 ft 2 in 6 ft 2 in Weight: 219 lb 8 oz 220 lb BMI 28.1 28.2 Intake Visit Reasons: LEFT SHOULDER Chief Complaint: Left shoulder MRI review Accompanied by: Is patient in pain?: No Allergies No Known Allergies Allergy (Verified 02/02/25 08:08) Medications ?Medication ?Instructions ?Recorded ?Confirmed ?Type ibuprofen 200 mg capsule 200 mg PO Q6H PRN 02/02/25 02/02/25 History Have you fallen in the past year?: No PFSH Medical History (Updated 02/02/25 @ 08:22 by Nolan Henao MD) Tear of left glenoid labrum Other instability, left shoulder Surgical History H/O adenoidectomy Social History Smoking Status: Never smoker HPI LEFT SHOULDER Details: This documentation accurately reflects the service provided and the decisions made by me, Dr. Nolan Henao MD 02/02/25 0802. Part of today?s visit was documented by [ ], acting as scribe. JOHN TOURE is a 29 year old M here today for FU L shoulder MRI. Patient needed a new note for work he does most activities with his right upper extremity wants a new note to that effect. He is here with his today. Ortho Exam General General: Yes no acute distress Neurologic: Yes alert and Yes oriented x3 Psychologic: Yes reasonable and appropriate Supplemental Info [facility] Imaging Services [address] [place] [address] Upper Ext Joint Only(Routine) MR#: [id number] Acct: [id number] Name: JOHN TOURE Rep #: [id number] : 1995 M 29 From: Austyn Boateng MD PCP: Dr. Fitz Jones MD Status: REG CLI Study: Upper Ext Joint Only(Routine) Date of Exam: 01/22/25 Exam# [id number] Ordering Dr: Fitz Jones MD PROCEDURE: UPPER EXT JOINT ONLY(ROUTINE) 01/22/2025 REASON FOR EXAM: SHOULDER LEFT TECHNIQUE: UPPER EXT JOINT ONLY(ROUTINE) Multiplanar and multisequence images were obtained without IV contrast administration. COMPARISON: COMPARISON: January 18, 2025 x-ray FINDINGS: Bone Marrow: There is a recent depressed reverse Hill-Sachs fracture in the anterior medial humeral head with marrow edema consistent with posterior dislocation. There is subcortical edema in the posterior glenoid. Rotator cuff: There is no muscular atrophy. There is moderate distal infraspinatus tendinopathy without full-thickness tear, with subcortical cyst formation noted deep to the insertion. The supraspinatus, subscapularis, and teres minor appear intact. Labrum: There is a full-thickness tear of the anterior labrum with medial stripping of the periosteum at the glenoid neck. There is a full-thickness tear of the posterior inferior labrum. There is no paralabral cyst. There is a edema and attenuation in the posterior aspect of the inferior glenohumeral ligament at the glenoid. AC joint: The AC joint is aligned without evidence of separation. There is a type 2 acromion. Biceps tendon: The biceps tendon is present in the biceps tendon groove, with intact anchors. Effusion: There is a large joint effusion. There is a trace amount of fluid in the subacromial subdeltoid bursa, with bursitis. MRI/Upper Ext Joint Only(Routine) IMPRESSION: There is a recent depressed reverse Hill-Sachs fracture in the anterior medial humeral head with marrow edema consistent with posterior dislocation. There is subcortical edema in the posterior glenoid. There is moderate distal infraspinatus tendinopathy without full-thickness tear, with subcortical cyst formation noted deep to the insertion. There is a full-thickness tear of the anterior labrum with medial stripping of the periosteum at the glenoid neck. There is a full-thickness tear of the posterior inferior labrum. There is a edema and attenuation in the posterior aspect of the inferior glenohumeral ligament at the glenoid. There is a large joint effusion. There is a trace amount of fluid in the subacromial subdeltoid bursa, with bursitis. Reading Location: [facility] independently reviewed the imaging. Concur with radiologist report. Coding Level of Care Code Off vis,est,level 4 Diagnoses Other instability, left shoulder M25.312 Tear of left glenoid labrum S43.432A Assessment and Plan Assessment and Plan (1) Other instability, left shoulder: Status: Acute Plan: 29-year-old man with a left shoulder instability episode and circumferential labral tear. The options here would be conservative management with physical therapy for strengthening and activity modifications versus surgery for labrum repair. Surgery would most likely have a lower chance of recurrence and long-term better stability of the shoulder. We discussed the pros cons risk benefits as well as the recovery associated with the surgical labral repair 2 weeks in a sling and 4 months before going back to dangerous activities he understands wished to proceed with left shoulder arthroscopy, labral repair. Pros and cons risks and benefits were discussed with the patient including but not limited to infection, pain, stiffness, bleeding, damage to surrounding structures, neurovascular injury, recurrence or retear, failure or wear of hardware or fixation, instability, fracture, deep vein thrombosis and pulmonary embolism, anesthetic risks, , patient dissatisfaction, need for further surgery and other risks. Patient understood and wished to proceed with surgery, and signed the informed consent documentation. (2) Tear of left glenoid labrum: Status: Acute Clinical Quality Measures Falls Risk Screening/Assistive Devices Have you fallen in the past year?: No PFSH Medical History Alcohol use Fatty liver Syncope Heartburn Leg cramps Non-smoker Tear of left glenoid labrum Other instability, left shoulder Home Medications ?Medication ?Instructions ?Recorded ?Last Taken ?Type ibuprofen 200 mg capsule 200 mg PO Q6H PRN pain 02/02/25 Unknown History Allergy/AdvReac Type Severity Reaction Status Date / Time No Known Allergies Allergy Verified 02/11/25 12:57 Surgical History History of myringotomy H/O adenoidectomy Social History Smoking Status: Never smoker Vital Signs Vital Signs Vital Signs: 02/25/25 08:53 02/25/25 08:53 02/25/25 09:03 Temperature 97.5 F L 97.5 F L Temperature Source Temporal Pulse Rate 80 80 Respiratory Rate 16 16 Respiratory Pattern Normal Blood Pressure 129/86 H 129/86 H Blood Pressure Mean 100 Blood Pressure Source Monitor Blood Pressure Position Semi-Fowlers Blood Pressure Location Left Arm Pulse Ox 16 16 Oxygen Delivery Method Room Air Weight Weight: 218 lb 4.122 oz Body Mass Index (BMI) 28.0
[2025-02-25] MEDS: Midazolam 2 MG/2 ML Syringe IV (10:06)
[2025-02-25] MEDS: Cefazolin 1 GM/5 ML Vial 2 GM IV (10:18)
[2025-02-25] MEDS: fentaNYL 100 MCG/2 ML Ampul IV (10:27)
[2025-02-25] MEDS: Epinephrine (1 mg/ml) 1 MG/ML VIAL (10:39)
--- NOTE | 2025-02-25 11:54 | PCM.OPRPT ---
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: suyapa Tasks completed by mate first: Retracting Additional assistant women's basketball coach?: No Type of Anesthesia: Block,Regional and General RN Documented Start/Stop Times: Operation Date: 02/25/25 10:30 Case Time Into Pre-Op 02/25/25 08:42 Anesthesia Start 02/25/25 10:18 Into Room 02/25/25 10:18 Procedure Start 02/25/25 10:39 Procedure Start Time: 10:39 Procedure Stop Time: 12:02 Select all DRAINS/GRAFTS/IMPLANTS that apply: Implanted device Implanted device details: arthrex 1.8mm suture taks x 6 Estimated Blood Loss: 10 Specimen collected: No Description of surgery: Patient brought to the operating room theater. Placed supine on the table. General anesthesia induced. 2 g of IV Ancef administered prior to the start of the case. Patient transferred left side up lateral decubitus beanbag positioner. Axillary roll used. All bony prominences padded. SCDs on the legs. Upper extremity prepped and draped in the usual sterile fashion with chlorhexidine-based prep solution allowing over 3 minutes drying time prior to draping. Arm in 40 degrees of abduction with 10 pounds of inline traction. Preoperative timeout performed to confirm the site patient and the surgery. Began by inserting the arthroscope into the intra-articular portion of the shoulder through a standard posterior arthroscopy portal. Did a full diagnostic arthroscopy. Biceps tendon appeared normal as did the subscapularis and undersurface the rotator cuff no loose bodies. There is a labrum tear from 2:[address] to the 8:00 on the clock face. I elevated the tissue I debrided any scar tissue and frayed tissue from the labrum circumferentially. I slightly elevated the labrum for a tension-free repair. I used shaving instruments to create a bleeding bony bed for healing as well as taking off about 1 mm of cartilage using a ring curette for planned to superior shift and anterior to posterior shift of the labrum and capsular tissue. I placed 2 cannulas anteriorly and 2 cannulas posteriorly through the rotator interval as well as at the level of the glenoid posteriorly. I looked from anterior to posterior. I used 2 Arthrex suture tack 1.8 mm all suture anchors at the 7:00 and 8:00 positions. I then used a nitinol wire to pass and shuttle the repair suture underneath and circumferentially around the labrum and some capsular tissue, and then converted the repair suture using knotless technique. I waited until the end of the case to fully tension each anchor. I then did the same technique anteriorly using four 1.8 mm fiber tack Arthrex implants at the 530 4:30, 4:00 and 3:00 positions. I sequentially tightened the sutures from inferior to superior. I then went back posteriorly and again tighten the sutures and cut all of the suture limbs short. Labrum was stable and solid to probing arthroscopy pictures taken and saved onto the system throughout the case. Arthroscope withdrawn wound cleaned with wet and dry dressing hemostasis achieved portal sites closed with 3-0 Monocryl sutures followed by cleaning of the skin with wet dry dressing and Steri-Strips Adaptic 4 x 4 gauze ABD dressing cloth tape with an abduction pillow sling for the upper extremity. Patient woken up from a general anesthetic transferred off the operating table taken to postanesthetic care unit in stable condition. All sponge needle instrument counts were correct no complications Plan for the patient discharged home according to the surgery criteria follow-up in the office within 2 weeks time and pendulum exercises 4 times a day hand wrist and elbow exercises but no lifting. cpt 28793, [id number] Surgical Findings: as above Complications Complications: No Admit VTE Documentation VTE Present on Admission: No VTE Mechan Device Prophylaxis: SCD's VTE Pharm Prophylaxis ordered?: No Reason prophylaxis not ordered: Treatment Not Indicated
--- NOTE | 2025-02-25 12:03 | DCINST_ITS ---
Discharge Instructions Diet Discharge Diet: No restrictions Activity Discharge Activity: Return to Normal Activity Ice area for (Minutes): 10 Lifting Restrictions: ok to remove sling at rest, pendulums 4x/day, avoid ER of the shoulder Additional Activity Instructions:: ok for hand wrist elbow rom gently 4x/day, no lifting over 1 pound Dressing / Incision Call your doctor if your incision/area has: Continuous Slow Oozing, Sudden Increased Bleeding, Increased Pain/ Swelling, Increased Redness, Foul Smelling Discharge and Swelling at the incision site Call your doctor if you observe: Fever of 101 or Higher, Coldness, Increased Pain and Numbness or Tingling Change Dressing in: 2 days Cleanse incision/area with: Do not get Incision Wet Follow Up Care Please Follow Up With: Nolan Henao MD When: within 2 weeks Test Results: Test results from this visit will be discussed in further detail at your follow- up appointment, if applicable. Discharge Plan Admission Attending Provider: Nolan Henao Primary Care Provider: Fitz Jones Instructions Print Language: Cambodian Discharge Orders/Prescriptions Prescriptions: New oxycodone-acetaminophen [Endocet] 5-325 mg tablet 1 tab PO Q4H MDD 6 PRN (Reason: pain) 5 Days Qty: 20 0RF ibuprofen 400 mg tablet 400 mg PO Q6H MDD 4 PRN (Reason: pain) 5 Days Qty: 20 1RF No Action ibuprofen 200 mg capsule 200 mg PO Q6H PRN (Reason: pain) Referrals / Follow Up: Fitz Jones MD [Primary Care Provider] - Nolan Henao MD [Med Staff - Active Staff] - Disposition Disposition (needs filled in before D/C Order can be placed): Home, Self Care
--- NOTE | 2025-02-25 12:17 | PCM.POST.ANE ---
Anesthesia: Postop Eval I Current Vital Signs Temperature: 97.5 F Pulse Rate: 83 Blood Pressure: 138/84 Respiratory Rate: 16 Pulse Ox: 96 Oxygen Delivery Method: Room Air Assessment Airway patent: Yes Spontaneous unlabored respirations: Yes Mental status: Awake and Calm nausea: No Vomiting: No Anesthesia Complication: No Fluid Hydration Crystalloid volume administer (ml): 1,200 Total IV fluid infused: 1,200 Progress Note Anesthesia document: Postop Eval 1 completed: Yes
== END 2025-02-25 14:06 | disposition home or self-care (01) ==
LOC: SDC 08:32 → AC 08:34
PROVIDERS: PCP Family Medicine; Referring Provider Orthopaedic Surgery Sports Medicine; Visit Provider Orthopaedic Surgery Sports Medicine
PROC: (CPT 29805; principal; 2025-02-25 10:10)
DX: S43.432A Superior glenoid labrum lesion of left shoulder, initial encounter (principal); M25.312 Other instability, left shoulder; X58.XXXA Exposure to other specified factors, initial encounter
CPT/HCPCS: 29806; 64415; 01630; C1713; J2405

== ENCOUNTER 2025-02-25 22:14 | Emergency (ER) | payer OTHER, SELFPAY ==
[2025-02-25 22:16] VITALS: BP 130/79; PULSE 97; RESP 18; TEMP 36.3; O2SAT 98; BMI 28.9
--- NOTE | 2025-02-25 22:29 | EX.ED.UPPERE ---
HPI History of Present Illness Chief Complaint: Wound Check Narrative Narrative: 29-year-old male presents with no significant past medical history, no blood thinners presents for wound check from his arthroscopic left shoulder wounds. He and his relate history that he had surgery by Dr. Nolan Henao today for a torn labrum. He was released at around 5.3 p.m. this afternoon, 7 hours ago. He started having bleeding coming from the dressing. They state that he and his held direct pressure. He has not moved his arms. He states that there are 4 sites that have Steri-Strips on them that he was told not to get wet. They were concerned because of the bleeding coming from underneath the bandage. [facility] Medical History Alcohol use Fatty liver Syncope Heartburn Leg cramps Non-smoker Tear of left glenoid labrum Other instability, left shoulder Home Medications ?Medication ?Instructions ?Recorded ?Last Taken ?Type ibuprofen 200 mg capsule 200 mg PO Q6H PRN pain 02/02/25 Unknown History ibuprofen 400 mg tablet 400 mg PO Q6H PRN pain 5 days #20 02/25/25 Unknown Rx tabs oxycodone-acetaminophen 5 mg-325 1 tab PO Q4H PRN pain 5 days #20 02/25/25 Unknown Rx mg tablet (Endocet) tabs Allergy/AdvReac Type Severity Reaction Status Date / Time No Known Allergies Allergy Verified 02/25/25 22:15 Surgical History History of myringotomy H/O adenoidectomy Social History Smoking Status: Never smoker ROS ROS ED ROS Narrative Review of systems positive for surgical wound bleeding. States having small amount of sharp pain on the anterior aspect of his left ED. No fevers or chills, no other symptoms. EXAM Physical Exam Narrative Exam Narrative: Afebrile. Vital signs noted. Nontoxic-appearing. Cardiovascular examination regular rate and rhythm. Lungs clear to auscultation bilaterally, abdomen soft. Left upper extremity in sling and immobilized. After partial removal of the dressing, there is a large clot noted underneath the gauze, but no active bleeding currently. Const Vital Signs: 02/25/25 22:16 Temperature 97.4 F L Temperature Source Temporal Pulse Rate 97 Respiratory Rate 18 Blood Pressure 130/79 H Blood Pressure Mean 96 Pulse Ox 98 Oxygen Delivery Method Room Air MDM MDM MDM Narrative Medical decision making narrative: I do not feel differential diagnosis is applicable as this was postoperative bleeding and he is postoperative day 0. As there is no active bleeding, his dry sterile dressings will be changed, and the Steri-Strips left in place. I discussed patient with Dr. Nolan Henao who states that the patient should follow-up early next week on Sunday. Return instructions to the emergency department were reviewed. Disposition is discharged home in stable condition. History & Record Review Discussion w/independent historian: Patient and Family () Management Discussion w/another healthcare provider: [facility] (Dr. Nolan Henao) Discharge Plan Triage Chief Complaint: Wound Check ED Provider: Adrián Newton Dx/Rx/DC Orders Clinical Impression: Postoperative wound hemorrhage, Encounter for post surgical wound check Instructions: ED Post Op Wound Check, Bleeding Prescriptions: No Action ibuprofen 200 mg capsule 200 mg PO Q6H PRN (Reason: pain) oxycodone-acetaminophen [Endocet] 5-325 mg tablet 1 tab PO Q4H MDD 6 PRN (Reason: pain) 5 Days Qty: 20 0RF ibuprofen 400 mg tablet 400 mg PO Q6H MDD 4 PRN (Reason: pain) 5 Days Qty: 20 1RF Primary Care Provider: Fitz Jones Referrals: Fitz Jones MD [Primary Care Provider] - Nolan Henao MD [Med Staff - Active Staff] - 5-7 Days Activity Restrictions/Additional Instructions: Follow-up with Dr. Henao early next week on Sunday. Return to the emergency department with increased bleeding, new or worsening symptoms. Print Language: Tuvaluan Disposition Disposition: Home, Self Care Discharge Date/Time: 02/25/25 22:51
--- OUTSIDE RECORDS SUMMARY | 2025-02-25 22:41 | XMS RPT_ITS | CCD ---
Author Organization [facility] CliniSytn Care Team Providers Care Plating Engineer Name Role Phone CATA PIERCE Unavailable Unavailable [...] Attending Unavailable Fitz Jones Primary Care Unavailable Fitz Jones MD Primary Care Provider Fitz Jones MD Referring Provider [phone] Fitz Jones MD Attending Provider Nolan Henao MD Referring Provider [phone] Nolan Henao MD Other Provider Medications Current Medications Medication Drug Class(es) Dates Sig (Normalized) Sig (Original) acetaminophen 325 mg / oxyCODONE hydrochloride 5 mg oral tablet (1 source) Opioid Agonist Start: 02-25-2025 take 1 tablet by mouth every four hours as needed for pain Oxycodone-Acetami nophen (Endocet) 5-325 mg tablet Active 1 {tbl} PO Q4H as needed for pain 20 5 0 February 25, 2025 Other instability of left shoulder Tear of left glenoid labrum Other instability, left shoulder Superior glenoid labrum lesion of left shoulder, initial encounter ibuprofen 400 mg oral tablet (3 sources) Nonsteroidal Anti-inflammatory Drug Start: 02-25-2025 take 1 tablet by mouth every six hours as needed for pain Ibuprofen 400 mg tablet Active 400 mg PO EVERY 6 HOURS as needed for pain 20 5 1 February 25, 2025 12:05pm Other instability of left shoulder Tear of left glenoid labrum Other instability, left shoulder Superior glenoid labrum lesion of left shoulder, initial encounter Start: 02-02-2025 take 1 capsule by mo ut every six hours as needed for pain Ibuprofen 200 mg capsule Active 200 mg PO EVERY 6 HOURS as needed for pain February 02, 2025 12:00am polymyxin b 71390 unt/ml / trimethoprim 1 mg/ml ophthalmic solution (1 source) Dihydrofolate Reductase Inhibitor Antibacterial, Polymyxin-class Antibacterial Start: 09-29-2023 End: 10-06-2023 take 1 drop(s) into the eye(s) four times daily trimethoprim-polymyxin (POLYTRIM) 10,000 unit- 1 mg/mL ophthalmic solution Indications: Bacterial conjunctivitis Use 1 Drop in the left eye four times daily for 7 days. 10 mL 0 09/29/2023 10/06/2023 Active Comment on above: Use 1 Drop in the left eye four times da katy for 7 days. predniSONE 10 mg oral [...] Comment on above: Take 4 tablets by mouth once daily for 3 days, THEN 2 tablets once daily for 3 days, THEN 1 tablet once daily for 3 days. Take with food.. Completed/Discontinued Medications Medication Drug Class(es) Dates Sig (Normalized) Sig (Original) amoxicillin 875 mg / clavulanate 125 mg oral tablet (9 sources) Penicillin-class Antibacterial Start: 11-03-2023 End: 01-22-2025 [...] mouth. naproxen sodium 220 mg oral capsule (4 sources) Nonsteroidal Anti-inflammatory Drug Start: 5 End: take 1 capsule by mouth twice [...] [Unspecified conjunctivitis] 09-29-2023 Episodic Other eye disorders (8 sources) Swelling of eyelid; Translations: [Edema of right eye, unspecified eyelid] 11-03-2023 Episodic Other non-traumatic joint disorders (10 sources) Pain in left shoulder; Translations: [Left shoulder pain] Onset: 01-22-2025 01-19-2025 Episodic Other non-traumatic joint disorders (5 sources) Instability of left shoulder joint; Translations: [...] 09-29-2023 Chronic Skin and subcutaneous tissue infections (8 sources) Cellulitis of periorbital region; Translations: [Periorbital cellulitis] 11-03-2023 Episodic Sprains and strains (6 sources) Glenoid labrum tear; Translations: [Superior glenoid labrum lesion of left shoulder, initial encounter] Onset: 02-02-2025 02-02-2025 Episodic Unclassified (1 source) Other specified postprocedural states; Translations: [OTHER SPECIFIED POSTPROCEDURAL STATES] Onset: 08-04-2017 Unclassified (4 sources) Left shoulder pain Unclassified (8 sources) M25.512 - Pain in left shoulder [...] Facility Orthopedic Visit Reporton Orthopedic Visit Report [facility] [address] [place] [address] OFFICE VISIT Date of Service: 02/02/25 MR#: [id number] Acct: [id number] Name: RINA TOURE SAKSHI Rep #: [id number] : 1995 Provider: Dr. Nolan butts MD Age/Sex: 29/M Location: [facility] [place] Status: Signed Intake Vital Signs [...] documented by [ ], acting as scribe. RINA TOURE is a 29 year old M [...] Psychologic: Yes reasonable and appropriate Supplemental Info [facility] [address] [place], [place] [address] Upper Ext Joint Only(Routine) MR#: [id number] Acct: [id number] Name: RINA TOURE Rep #: [id number] : 1995 M 29 From: Austyn Boateng MD PCP: Dr. Fitz Jones MD Status: REG CLI Study: Upper Ext Joint Only(Routine) Date of Exam: 01/22/25 Exam# [id number] Ordering Dr: Fitz Jones MD PROCEDURE: UPPER [...] radiologist report. (more content not included)... Normal [facility] Magnetic resonance imaging r eportOrdered By: Austyn Boateng on 01-22-2025 Study report [facility] [address] [place] [address] Upper Ext Joint Only(Routine) MR#: [id number] Acct: [id number] Name: RINA TOURE SAKSHI Rep #: [id number] : 1995 M 29 From: Beatriz Boateng MD PCP: Dr. Fitz Jones MD Status: REG CL I Study:Upper Ext Joint Only(Routine) Date of Exam: 01/22/25 Exam# [id number] Ordering Dr: Caterina Jones MD PROCEDURE: UPPER [...] ION CC: Dr. Fitz Jones MD ~ Woods Superintendent: Signed [facility] Orthopedic Visit Reporton Orthopedic Visit Report [facility] [address] [place], [place] [address] OFFICE VISIT Date of Service: 01/22/25 MR#: [id number] Acct: [id number] Name: RINA TOURE Rep #: [id number] : 1995 Provider: Dr. Nolan butts MD Age/Sex: 29/M Location: [facility] [place] Status: Signed Intake Vital Signs [...] documented by [ ], acting as scribe. RINA TOURE is a 29 year old M here today for 1 week of left shoulder pain. 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 He was golfing [...] and Shift, Yes jerk (mild positive), No [place], No cross arm, No lift off, No scapular symmetry, No scapular winging and Yes belly press normal SHOULDER: normal motor and sens to axillary N, MRU and AIN/PIN. Hand warm well perfused normal radial pulse Strength in forward elevation is 4+ strength in external rotation is 5 Supplemental Info [facility] [address] [place] [address] Shoulder min 2 Views MR#: [id number] Acct: [id number] Name: RINA TOURE SAKSHI Rep #: [id number] : 1995 M 29 From: Tk Solorzano MD PCP: Dr. Fitz Jones MD Status: REG ER Study: Shoulder min 2 Views Date of Exam: 01/18/25 Exam# [id number] Ordering Dr: Perez Mcclellan DO PROCEDURE: SHOULDER MIN 2 VIEWS 01/18/2025 REASON FOR EXAM: SHOULDER PAIN TECHNIQUE: SHOULDER MIN 2 VIEWS COMPARISON: No FINDINGS: No acute bone, soft tissue, or lung pathology. No degeneration. RAD/Shoulder min 2 Views IMPRESSION: No acute findings Reading Location: [place] [address] I independently reviewed the imaging. Concur with [...] labrum te (more content not included)... Normal [facility] Upper Ext Joint Only(Routine )on 01-22-2025 Upper Ext Joint Only(Routine) [facility] [address] [place], [place] [address] Upper Ext Joint Only(Routine) MR#: [id number] Acct: [id number] Name: RINA TOURE Rep #: [id number] : 1995 M 29 From: Austyn Boateng MD PCP: Dr. Fitz Jones MD Status: REG CLI Study: Upper Ext Joint Only(Routine) Date of Exam: 0 01/22/25 Exam# [id number] Ordering Dr: Fitz Jones MD PROCEDURE: UPPER [...] Location: ION CC: Dr. Fitz Jones MD Woods Superintendent: Signed Normal [facility] Emergency Department Summary on 01-19-2025 Emergency Department Summary [facility] Medical Records Department [address] [place] [address] Emergency Department Summary 01/19/25 MR#: [id number] Acct: [id number] Name: RINA TOURE Rep #: [id number] : 1995 29 From: Perez Mcclellan DO PCP: Dr. Fitz Jones MD Status:DEP ER Location: ED ADDENDUM by Dr. Perez Mcclellan DO on 01/19/25 at 0048 Patient's official read by the radiologist showed no acute findings. 01/19/25 004 Cosigner Signature (if applicable): cc: Dr. Fitz [...] follow commands knew that he was at [facility] years 2024. Sensation grossly intact in the [...] is advised to rotate Tylenol and ibuprofen [id number] and follow-up with Dr. Padilla in the [...] Fitz Jones (more content not included)... Normal [facility] Shoulder min 2 Viewson 01-18 Shoulder min 2 Views [facility] [address] [place], [place] [address] Shoulder min 2 Views MR#: [id number] Acct: [id number] Name: RINA TOURE Rep #: [id number] : 1995 M 29 From: Tk Solorzano MD PCP: Dr. Fitz Jones MD Status: REG ER Study: Shoulder min 2 Views Date of Exam: 01/18/25 Exam# [id number] Ordering Dr: Perez Mcclellan DO PROCEDURE: SHOULDER MIN 2 VIEWS 01/18/2025 REASON FOR EXAM: SHOULDER PAIN TECHNIQUE: SHOULDER MIN 2 VIEWS COMPARISON: No FINDINGS: No acute bone, soft tissue, or lung pathology. No degeneration. RAD/Shoulder min 2 Views IMPRESSION: No acute findings Reading Location: [facility]-2 CC: Dr. Fitz Jones MD; Dr. Perez Mcclellan DO Woods Superintendent: Signed Normal [facility] Testosterone, Total / Freeon 10-25-2024 TESTOSTER,FREE 8.76 ng/dL Normal 5.00-21.00 [facility] Comment on above: Order Comment: Order Date: 09/26/24Order Info: 0024-1 - TESTFN Performed By: #### L 3100.5310 ####[facility] [address] [place], [place], [address] TESTOSTER,TOTAL 188 ng/dL Low 264-916 [facility] Comment on above: Order Comment: Order Date: 09/26/24Order Info: 0024-1 - TESTFN Result Comment: Adul t male reference interval is based on a population of healthy nonobese males (BMI <30) between 19 and 39 years old. Willy et.al. JCEM 2017,102;0973-0722. PMID: 12884596. Performed By: #### L 3100.5310 ####[facility] [address] [place], [place], [address] TESTOSTERONE,%F 4.66 High 1.50-4.20 [facility] Comment on above: Order Comment: Order Date: 09/26/24Order Info: 0024-1 - TESTFN Result Comment: Perf ormed at: [facility] [id number] Catcher Plug: Fernie Martines PhD, Phone: [phone] Performed at: [facility] [address] [id number] Catcher Plug: Andrews Arana MD, Phone: [phone] Performed By: #### L 3100.5310 ####[facility] [address] [place], [place], [id number] Free testosterone percentage Ordered By: Fitz Priceke on 10-11-2024 Testosterone Free/Testosterone.total [Mass fraction] 4.66 % High 1.50-4.20 [facility] Comment on above: Performed at: - L [facility] [address] [id number] Director: Fernie Martines PhD, Phone: [phone] at: - [facility] [id number] Director: Andrews Arana MD, Phone: [phone] Serum or plasma free testost erone measurement (mass/volume)Ordered By: Fitz Jones on 10-11-2024 Testosterone Free [Mass/Vol] 8.76 ng/dL 5.00-21.00 [facility] Testosterone, totalOrdered B y: Milanbenjamín Priceke on 10-11-2024 Testosterone [Mass/Vol] 188 ng/dL Low 264-916 [facility] Comment on above: Adult male reference interval is based on a population ofhealthy nonobese males (BMI <30) between 19 and 39 yearsold. bernardo Aguilera.al. JCEM 2017,102;0832-6867. PMID:90212914. Abdomen Limitedon 10-04-2024 Abdomen Limited [facility] [address] [place], [place] [address] Abdomen Limited MR#: [id number] Acct: [id number] Name: RINA TOURE Rep #: [id number] : 1995 M 29 From: Ranjit Olivo PCP: Dr. Fitz Jones MD Status: REG CLI Study: Abdomen Limited Date of Exam: 10/04/24 Exam# [id number] Ordering Dr: Fitz Jones MD PROCEDURE: Right [...] Location: [facility] CC: Dr. Fitz Jones MD Woods Superintendent: Signed Normal [facility] 12-XJ-Rpkccge DOrdered By: Lowell Jones on 07-21-2024 Vitamin D 25-Hydroxy 12.5 ng/mL [facility] Comment on above: Vitamin D 25(OH) Sta tus Range Deficiency <20 ng/mL (50nmol/L) Insufficiency 20 - 30 ng/mL (50 - 75 nmol/L) Sufficiency 30 - 100 ng/mL (75 - 250 nmol/L) Toxicity >100 ng/mL (>250 nmol/L) Hemoglobin A1con 07-21-2024 HbA1c (Bld) [Mass fraction] 5.2 % Normal 3.8-5.6 [facility] Comment on above: Order Comment: JUAN J Law ADD A1C TO THE CBCD THAT WAS DONE ON 07 19 24 Result Comment: Norm al < 5.7 % Prediabetic 5.7 - 6.4 % Diabetic >or= 6.5 % Please note range changes. Performed By: #### L 501.9520, L506.1000, L509.3000, L501.9985 ####[facility] [address] [place], [address] Hemoglobin A1c percentageOrd ered By: Fitz Jones on 07-21-2024 HbA1c (Bld) [Mass fraction] 5.2 % 3.8-5.6 [facility] Comment on above: Normal < 5.7 % Predi abetic 5.7 - 6.4 % Diabetic >or= 6.5 % Please note range changes. Testosterone, Serum Totalon 07-21-2024 Testosterone [Mass/Vol] 135.82 ng/dL Normal [facility] Comment on above: Order Comment: PLEAS E [...] By: #### L 501.9520, L506.1000, L509.3000, L501.9985 ####[facility] [address] [place], [place], [id number] Testosterone, totalOrdered B y: Fitz Jones on 07-21-2024 Testosterone [Mass/Vol] 135.82 ng/dL [facility] Comment on above: CENTRAL 90% REFERENC E RANGES MALE AGE <50 197.44 - 669.58 ng/dL MALE AGE > or = 50 187.72 - 684.19 ng/dL FEMALE AGE <50 8.38 - 35.01 ng/dL FEMALE AGE > or = 50 <7.00 - 35.92 ng/dL Effective as of 02/15/21 Thyroid Stim Hormone (TSH)on 07-21-2024 TSH 2.820 uIU/mL Normal 0.358-3.740 [facility] Comment on above: Order Comment: JUAN J Law ADD ON TSH AND VITD TO BLOOD WORK DONE ON 07 19 24 PLEASE ADD ON TSH,VITD, TO BLOOD WORK THAT WAS DONE ON 07 19 24 Order Date: 07/17/24 Order Info: 0786-1 - CMP Order Info: [id number] - LIPID Performed By: #### L 501.9520, L506.1000, L509.3000, L501.9985 #### [facility] [address] [place], [place], [id number] Vitamin D,25 Hydroxyon 07-21 Vitamin D 25-OH 12.5 ng/mL Normal [facility] Comment on above: Order Comment: JUAN J Law ADD TEST TOTAL TO BLOOD WORK THAT WAS DONE ON07 19 24 Result Comment: Selam min D 25(OH) Status Range Deficiency <20 ng/mL (50nmol/L) Insufficiency 20 - 30 ng/mL (50 - 75 nmol/L) Sufficiency 30 - 100 ng/mL (75 - 250 nmol/L) Toxicity >100 ng/mL (>250 nmol/L) Performed By: #### L 501.9520, L506.1000, L509.3000, L501.9990 ####[facility] [address] [place], [place], [id number] Absolute neutrophil countOrd ered By: Fitz Priceke on 07-19-2024 Neutrophils (Bld) [#/Vol] 5.6 10*3/uL 2.0-7.7 [facility] Albumin to globulin ratioOrd ered By: Fitz Karen on 07-19-2024 Albumin/Globulin [Mass ratio] 1.1 {ratio} 0.9-2.4 [facility] Basophil percentageOrdered B y: Milanbenjamín Karen on 07-19-2024 Basophils/100 WBC (Bld) 0.8 % 0-1 [facility] Bilirubin, totalOrdered By: Fitz Karen on 07-19-2024 Bilirubin [Mass/Vol] 1.00 mg/dL 0.20-1.00 [facility] Comment on above: For patients on eltr ombopag therapy, use of Dimension [place] TBIL is not recommended. Blood urea nitrogen (BUN)/cr eatinine ratioOrdered By: Fitz Karen on 07-19-2024 Urea nitrogen/Creatinine [Mass ratio] 14.7 mg/mg 10-20 [facility] CBC W/Diff, Automatedon 06-23 Absolute Lymph 1.53 X10 3/uL Normal 0.83-4.51 [facility] Comment on above: Order Comment: Order Date: 07/17/24 Order Info: 0184-1 - CBCD Performed By: #### L 100.0100, L500.4050, L500.4100 #### [facility] [address] [place], [place], [id number] Absolute Neut 5.6 X10 3/uL Normal 2.0-7.7 [facility] Comment on above: Order Comment: Order Date: 07/17/24 Order Info: 0184-1 - CBCD Performed By: #### L 100.0100, L500.4050, L500.4100 #### [facility] [address] [place], [address] Basophils/100 WBC (Bld) 0.8 % Normal 0-1 [facility] Comment on above: Order Comment: Order Date: 07/17/24 Order Info: 0184-1 - CBCD Performed By: #### L 100.0100, L500.4050, L500.4100 #### [facility] [address] [place], [address] Eosinophils/100 WBC (Bld) 1.1 % Normal 0-5 [facility] Comment on above: Order Comment: Order Date: 07/17/24 Order Info: 0184-1 - CBCD Performed By: #### L 100.0100, L500.4050, L500.4100 #### [facility] [address] [place], [address] Erythrocyte distribution width (RBC) [Ratio] 11.9 % Normal 11.6-14.6 [facility] Comment on above: Order Comment: Order Date: 07/17/24 Order Info: 0184-1 - CBCD Performed By: #### L 100.0100, L500.4050, L500.4100 #### [facility] [address] [place], [address] Hematocrit (Bld) [Volume fraction] 43.7 % Normal 40-54 [facility] Comment on above: Order Comment: Order Date: 07/17/24 Order Info: 0184-1 - CBCD Performed By: #### L 100.0100, L500.4050, L500.4100 #### [facility] [address] [place], [address] Hemoglobin (Bld) [Mass/Vol] 14.5 g/dL Normal 13.0-16.5 [facility] Comment on above: Order Comment: Order Date: 07/17/24 Order Info: 018- - CBCD Performed By: #### L 100.0100, L500.4050, L500.4100 #### [facility] [address] [place], [address] IG% 0.500 Normal 0.0-0.9 [facility] Comment on above: Order Comment: Order Date: 07/17/24 Order Info: 018- - CBCD Result Comment: IG% - Immature Granulocytes (promyelocytes, myelocytes and metamyelocytes) > 1% indicates that a LEFT SHIFT is Present. Performed By: #### L 100.0100, L500.4050, L500.4100 #### [facility] [address] [place], [address] Lymphocytes/100 WBC (Bld) 19.2 % Normal 19-41 [facility] Comment on above: Order Comment: Order Date: 07/17/24 Order Info: 01810-21 - CBCD Performed By: #### L 100.0100, L500.4050, L500.4100 #### [facility] [address] [place], [address] MCH (RBC) [Entitic mass] 28.9 pg Normal 27.0-32.0 [facility] Comment on above: Order Comment: Order Date: 07/17/24 Order Info: 018- - CBCD Performed By: #### L 100.0100, L500.4050, L500.4100 #### [facility] [address] [place], [address] MCHC (RBC) [Mass/Vol] 33.2 g/dL Normal 32-36 [facility] Comment on above: Order Comment: Order Date: 07/17/24 Order Info: 018- - CBCD Performed By: #### L 100.0100, L500.4050, L500.4100 #### [facility] [address] [place], [address] MCV (RBC) [Entitic vol] 87.1 fL Normal 80-94 [facility] Comment on above: Order Comment: Order Date: 07/17/24 Order Info: 0184-1 - CBCD Performed By: #### L 100.0100, L500.4050, L500.4100 #### [facility] [address] [place], [address] Monocytes/100 WBC (Bld) 8.5 % Normal 0-10 [facility] Comment on above: Order Comment: Order Date: 07/17/24 Order Info: 018- - CBCD Performed By: #### L 100.0100, L500.4050, L500.4100 #### [facility] [address] [place], [address] Neutrophils/100 WBC (Bld) 69.9 % Normal 47-70 [facility] Comment on above: Order Comment: Order Date: 07/17/24 Order Info: 0184- - CBCD Performed By: #### L 100.0100, L500.4050, L500.4100 #### [facility] [address] [place], [address] Nucleated RBC (Bld) [#/Vol] 0 10*3/uL Normal 0-5 [facility] Comment on above: Order Comment: Order Date: 07/17/24 Order Info: 0184- - CBCD Performed By: #### L 100.0100, L500.4050, L500.4100 #### [facility] [address] [place], [address] Platelet mean volume (Bld) [Entitic vol] 9.3 fL Normal 6.2-12.0 [facility] Comment on above: Order Comment: Order Date: 07/17/24 Order Info: 0184-1 - CBCD Performed By: #### L 100.0100, L500.4050, L500.4100 #### [facility] [address] [place], [address] Platelets (Bld) [#/Vol] 372 10*3/uL Normal 150-450 [facility] Comment on above: Order Comment: Order Date: 07/17/24 Order Info: 018- - CBCD Performed By: #### L 100.0100, L500.4050, L500.4100 #### [facility] [address] [place], [address] RBC (Bld) [#/Vol] 5.02 10*6/uL Normal 4.6-6.2 [facility] Comment on above: Order Comment: Order Date: 07/17/24 Order Info: 018- - CBCD Performed By: #### L 100.0100, L500.4050, L500.4100 #### [facility] [address] [place], [address] RDW SD 38.2 fl Normal 35.1-43.9 [facility] Comment on above: Order Comment: Order Date: 07/17/24 Order Info: 018- - CBCD Performed By: #### L 100.0100, L500.4050, L500.4100 #### [facility] [address] [place], [address] WBC (Bld) [#/Vol] 8.0 10*3/uL Normal 4.4-11.0 [facility] Comment on above: Order Comment: Order Date: 07/17/24 Order Info: 018-1 - CBCD Performed By: #### L 100.0100, L500.4050, L500.4100 #### [facility] [address] [place], [address] Carbon dioxide measurementOr dered By: Fitz Jones on 07-19-2024 CO2 [Moles/Vol] 25.0 mmol/L 21.0-32.0 [facility] Chloride measurementOrdered By: Fitz Jones on 07-19-2024 Chloride [Moles/Vol] 107 mmol/L 98-107 [facility] Comprehensive Metabolic Prof ilon 07-19-2024 Albumin [Mass/Vol] 4.0 g/dL Normal 3.2-5.0 [facility] Comment on above: Order Comment: Order Date: 07/17/24 Order Info: 0786-1 - CMP Order Info: [id number] - LIPID Performed By: #### L 100.0100, L500.4050, L500.4100 #### [facility] [address] [place], [address] Albumin/Globulin [Mass ratio] 1.1 {ratio} Normal 0.9-2.4 [facility] Comment on above: Order Comment: Order Date: 07/17/24 Order Info: 0786-1 - CMP Order Info: [id number] - LIPID Performed By: #### L 100.0100, L500.4050, L500.4100 #### [facility] [address] [place], [address] ALK P 99 U/L Normal 45-117 [facility] Comment on above: Order Comment: Order Date: 07/17/24 Order Info: 0786-1 - CMP Order Info: [id number] - LIPID Performed By: #### L 100.0100, L500.4050, L500.4100 #### [facility] [address] [place], [address] ALT [Catalytic activity/Vol] 144 U/L High 16-61 [facility] Comment on above: Order Comment: Order Date: 07/17/24 Order Info: 0786-1 - CMP Order Info: [id number] - LIPID Performed By: #### L 100.0100, L500.4050, L500.4100 #### [facility] [address] [place], [address] AST [Catalytic activity/Vol] 74 U/L High 15-37 [facility] Comment on above: Order Comment: Order Date: 07/17/24 Order Info: 0786- - CMP Order Info: [id number] - LIPID Performed By: #### L 100.0100, L500.4050, L500.4100 #### [facility] [address] [place], [address] Bilirubin [Mass/Vol] 1.00 mg/dL Normal 0.20-1.00 [facility] Comment on above: Order Comment: Order Date: 07/17/24 Order Info: 07- - CMP Order Info: [id number] - LIPID Result Comment: For patients on eltrombopag therapy, use of Dimension [place] TBIL is not recommended. Performed By: #### L 100.0100, L500.4050, L500.4100 #### [facility] [facility] [address] [place], [address] BUN/CRE 14.7 RATIO Normal 10-20 [facility] Comment on above: Order Comment: Order Date: 07/17/24 Order Info: [id number] - CMP Order Info: [id number] - LIPID Performed By: #### L 100.0100, L500.4050, L500.4100 #### [facility] [address] [place], [address] CA,Total 9.6 mg/dL Normal 8.5-10.1 [facility] Comment on above: Order Comment: Order Date: 07/17/24 Order Info: [id number]- - CMP Order Info: [id number] - LIPID Performed By: #### L 100.0100, L500.4050, L500.4100 #### [facility] [address] [place], [address] Chloride [Moles/Vol] 107 mmol/L Normal 98-107 [facility] Comment on above: Order Comment: Order Date: 07/17/24 Order Info: [id number] - CMP Order Info: [id number] - LIPID Performed By: #### L 100.0100, L500.4050, L500.4100 #### [facility] [address] [place], [address] CO2 [Moles/Vol] 25.0 mmol/L Normal 21.0-32.0 [facility] Comment on above: Order Comment: Order Date: 07/17/24 Order Info: [id number] - CMP Order Info: - LIPID Performed By: #### L 100.0100, L500.4050, L500.4100 #### [facility] [address] [place], [address] Creatinine [Mass/Vol] 0.95 mg/dL Normal 0.70-1.30 [facility] Comment on above: Order Comment: Order Date: 07/17/24 Order Info: [id number] - CMP Order Info: - LIPID Result Comment: The validity of the calculated GFR GFRAA in patients over 70 years has not been determined. Clinical correlation is essential. Performed By: #### L 100.0100, L500.4050, L500.4100 #### [facility] [address] [place], [address] EST GFR - AA 122 mL/min Normal >60 [facility] Comment on above: Order Comment: Order Date: 07/17/24 Order Info: [id number] - CMP Order Info: [id number] - LIPID Result Comment: Afri can Yemeni GFR Calc Performed By: #### L 100.0100, L500.4050, L500.4100 #### [facility] [address] [place], [address] GAP 6 Normal 5-15 [facility] Comment on above: Order Comment: Order Date: 07/17/24 Order Info: [id number] - CMP Order Info: - LIPID Performed By: #### L 100.0100, L500.4050, L500.4100 #### [facility] [address] [place], [address] GFR/1.73 sq M.predicted among non-blacks MDRD (S/P/Bld) [Vol rate/Area] 101 mL/min/{1.73_m2} Normal >60 [facility] Comment on above: Order Comment: Order Date: 07/17/24 Order Info: [id number] - CMP Order Info: [id number] - LIPID Result Comment: Non- GFR Calc Performed By: #### L 100.0100, L500.4050, L500.4100 #### [facility] [address] [place], [address] Globulin (S) [Mass/Vol] 3.8 g/dL Normal 2.2-4.2 [facility] Comment on above: Order Comment: Order Date: 07/17/24 Order Info: [id number] - CMP Order Info: [id number] - LIPID Performed By: #### L 100.0100, L500.4050, L500.4100 #### [facility] [address] [place], [address] Glucose [Mass/Vol] 100 mg/dL Normal 74-106 [facility] Comment on above: Order Comment: Order Date: 07/17/24 Order Info: [id number]- - CMP Order Info: [id number] - LIPID Result Comment: Fast ing Glucose result from 100 to 125 mg/dL suggests IMPAIRED HOMEOSTASIS per A.D.A. criteria. Performed By: #### L 100.0100, L500.4050, L500.4100 #### [facility] [address] [place], [address] Potassium [Moles/Vol] 4.0 mmol/L Normal 3.5-5.1 [facility] Comment on above: Order Comment: Order Date: 07/17/24 Order Info: [id number] - CMP Order Info: [id number] - LIPID Performed By: #### L 100.0100, L500.4050, L500.4100 #### [facility] [address] [place], [address] Sodium [Moles/Vol] 138 mmol/L Normal 136-145 [facility] Comment on above: Order Comment: Order Date: 07/17/24 Order Info: [id number] - CMP Order Info: [id number] - LIPID Performed By: #### L 100.0100, L500.4050, L500.4100 #### [facility] [address] [place], [address] T PROT 7.8 g/dL Normal 6.4-8.2 [facility] Comment on above: Order Comment: Order Date: 07/17/24 Order Info: [id number] - CMP Order Info: [id number] - LIPID Performed By: #### L 100.0100, L500.4050, L500.4100 #### [facility] [address] [place], [place], [address] Urea nitrogen [Mass/Vol] 14 mg/dL Normal 7-18 [facility] Comment on above: Order Comment: Order Date: 07/17/24 Order Info: [id number] - CMP Order Info: [id number] - LIPID Performed By: #### L 100.0100, L500.4050, L500.4100 #### [facility] [address] [place], [address] Eosinophil percentageOrdered By: Fitz Jones on 07-19-2024 Eosinophils/100 WBC (Bld) 1.1 % 0-5 [facility] Erythrocyte distribution wid th ratioOrdered By: Fitz Jones on 07-19-2024 Erythrocyte distribution width (RBC) [Ratio] 11.9 % 11.6-14.6 [facility] Erythrocyte distribution wid th standard deviationOrdered By: Fitz Jones on 07-19-2024 Erythrocyte distribution width (RBC) [Entitic vol] 38.2 fL 35.1-43.9 [facility] Estimated glomerular filtrat ion rate (GFR) AmericanOrdered By: Fitz Jones on 07-19-2024 Estimated GFR (MDRD) Amer 122 mL/min >60 [facility] Comment on above: GFR Calc Glomerular filtration rate ( GFR) estimationOrdered By: Fitz Jones on 07-19-2024 Estimated GFR (MDRD) Non-Af Amer 101 mL/min >60 [facility] Comment on above: Non- GFR Calc Glucose measurementOrdered B y: Milanbenjamín Karen on 07-19-2024 Glucose [Mass/Vol] 100 mg/dL 74-106 [facility] Comment on above: Fasting Glucose resu lt from 100 to 125 mg/dL suggests IMPAIRED HOMEOSTASIS per A.D.A. criteria. Hematocrit Auto (Bld) [Volum e fraction]Ordered By: Fitz Jones on 07-19-2024 Hematocrit (Bld) [Volume fraction] 43.7 % 40-54 [facility] Hemoglobin measurementOrdere d By: Fitz Jones on 07-19-2024 Hemoglobin (Bld) [Mass/Vol] 14.5 g/dL 13.0-16.5 [facility] High density lipoprotein (HD L) measurementOrdered By: Fitz Jones on 07-19-2024 Cholesterol in HDL [Mass/Vol] 41 mg/dL >40 [facility] Comment on above: The drugs N-Acetylcy steine and Metamizole may falsely depress this assay. Reference Range HDL <40 mg/dL Low HDL Cholesterol HDL >or= 60 mg/dL High HDL Cholesterol Immature granulocytes/100 WB C Auto (Bld)Ordered By: Fitz Jones on 07-19-2024 Immature granulocytes/100 WBC (Bld) 0.500 % 0.0-0.9 [facility] Comment on above: IG% - Immature Granu locytes (promyelocytes, myelocytes and metamyelocytes) > 1% indicates that a LEFT SHIFT is Present. Laboratory - Chemistry and C hemistry - challengeOrdered By: Fitz Jones on 07-19-2024 AST [Catalytic activity/Vol] 74 U/L High 15-37 [facility] Lipid Profileon 07-19-2024 Cholesterol [Mass/Vol] 223 mg/dL High 200 [facility] Comment on above: Order Comment: Order Date: 07/17/24 Order Info: [id number] - CMP Order Info: [id number] - LIPID Result Comment: <200 mg/dL Desirable 200-240 mg/dL Borderline >240 mg/dL High Risk Performed By: #### L 100.0100, L500.4050, L500.4100 #### [facility] [address] [place], [address] Cholesterol in HDL [Mass/Vol] 41 mg/dL Normal [facility] Comment on above: Order Comment: Order Date: 07/17/24 Order Info: [id number] - CMP Order Info: [id number] - LIPID Result Comment: The drugs N-Acetylcysteine and Metamizole may falsely depress this assay. Reference Range HDL <40 mg/dL Low HDL Cholesterol HDL >or= 60 mg/dL High HDL Cholesterol Performed By: #### L 100.0100, L500.4050, L500.4100 #### [facility] [address] [place], [address] Cholesterol in LDL [Mass/Vol] 151 mg/dL High 0-130 [facility] Comment on above: Order Comment: Order Date: 07/17/24 Order Info: [id number] - CMP Order Info: [id number] - LIPID Performed By: #### L 100.0100, L500.4050, L500.4100 #### [facility] [address] [place], [address] Cholesterol in VLDL [Mass/Vol] 31 mg/dL Normal 5-40 [facility] Comment on above: Order Comment: Order Date: 07/17/24 Order Info: [id number] - CMP Order Info: [id number] - LIPID Performed By: #### L 100.0100, L500.4050, L500.4100 #### [facility] [address] [place], [address] Triglyceride [Mass/Vol] 157 mg/dL Normal [facility] Comment on above: Order Comment: Order Date: 07/17/24 Order Info: [id number] - CMP Order Info: [id number] - LIPID Result Comment: The drugs N-Acetylcysteine and Metamizole may falsely depress this assay. Serum Triglycerides Reference Interval Normal <150 mg/dL Borderline high 150 - 199 mg/dL High 200 - 499 mg/dL Very High > or = 500 mg/dL Performed By: #### L 100.0100, L500.4050, L500.4100 #### [facility] [address] [place], [address] Low density lipoprotein (LDL ) cholesterol measurementOrdered By: Fitz Jones on 07-19-2024 Cholesterol in LDL [Mass/Vol] 151 mg/dL High 0-130 [facility] Lymphocytes Auto (Unsp spec) [#/Vol]Ordered By: Fitz Jones on 07-19-2024 Lymphocytes (Bld) [#/Vol] 1.53 10*3/uL 0.83-4.51 [facility] Lymphocytes/100 WBC Auto (Un sp spec)Ordered By: Fitz Jones on 07-19-2024 Lymphocytes/100 WBC (Bld) 19.2 % 19-41 [facility] MCV (mean corpuscular volume ) determinationOrdered By: Fitz Jones on 07-19-2024 MCV (RBC) [Entitic vol] 87.1 fL 80-94 [facility] Mean corpuscular hemoglobin (MCH) determinationOrdered By: Fitz Jones on 07-19-2024 MCH (RBC) [Entitic mass] 28.9 pg 27.0-32.0 [facility] Mean corpuscular hemoglobin concentration (MCHC) determinationOrdered By: Fitz Jones on 07-19-2024 MCHC (RBC) [Mass/Vol] 33.2 g/dL 32-36 [facility] Mean platelet volume determi nationOrdered By: [facility] on 07-19-2024 Platelet mean volume (Bld) [Entitic vol] 9.3 fL 6.2-12.0 [facility] Monocyte percentageOrdered B y: Fitz Jones on 07-19-2024 Monocytes/100 WBC (Bld) 8.5 % 0-10 [facility] Neutrophil percentageOrdered By: [facility] on 07-19-2024 Neutrophils/100 WBC (Bld) 69.9 % 47-70 [facility] Nucleated red blood cell per centageOrdered By: Fitz Jones on 07-19-2024 Nucleated RBC/100 WBC (Bld) [Ratio] 0 % 0-5 [facility] Platelet countOrdered By: Edy Jones on 07-19-2024 Platelets (Bld) [#/Vol] 372 10*3/uL 150-450 [facility] Potassium measurementOrdered By: Fitz Jones on 07-19-2024 Potassium [Moles/Vol] 4.0 mmol/L 3.5-5.1 [facility] RBC Auto (Bld) [#/Vol]Ordere d By: Fitz Jones on 07-19-2024 RBC (Bld) [#/Vol] 5.02 10*6/uL 4.6-6.2 [facility] Serum anion gap measurementO rdered By: Fitz Jones on 07-19-2024 Anion gap [Moles/Vol] 6 mmol/L 5-15 [facility] Serum globulin measurementOr dered By: Fitz Jones on 07-19-2024 Globulin (S) [Mass/Vol] 3.8 g/dL 2.2-4.2 [facility] Serum or plasma alanine negro otransferase (ALT) measurementOrdered By: Fitz Jones on 07-19-2024 ALT [Catalytic activity/Vol] 144 U/L High 16-61 [facility] Serum or plasma albumin dionicio urement (mass/volume)Ordered By: Fitz Jones on 07-19-2024 Albumin [Mass/Vol] 4.0 g/dL 3.2-5.0 [facility] Serum or plasma alkaline lyla sphatase measurementOrdered By: Fitz Jones on 07-19-2024 ALP [Catalytic activity/Vol] 99 U/L 45-117 [facility] Serum or plasma calcium dionicio urement (mass/volume)Ordered By: Fitz Jones on 07-19-2024 Calcium [Mass/Vol] 9.6 mg/dL 8.5-10.1 [facility] Serum or plasma cholesterol measurement (mass/volume)Ordered By: Fitz Jones on 07-19-2024 Cholesterol [Mass/Vol] 223 mg/dL High <200 [facility] Comment on above: <200 mg/dL Desirable 200-240 mg/dL Borderline >240 mg/dL High Risk Serum or plasma creatinine m easurement (mass/volume)Ordered By: Fitz Jones on 07-19-2024 Creatinine [Mass/Vol] 0.95 mg/dL 0.70-1.30 [facility] Comment on above: The validity of the calculated GFR & GFRAA in patients over 70 years has not been determined. Clinical correlation is essential. Serum or plasma urea nitroge n measurement (mass/volume)Ordered By: Fitz Jones on 07-19-2024 Urea nitrogen [Mass/Vol] 14 mg/dL 7-18 [facility] Sodium levelOrdered By: Milan Jones on 07-19-2024 Sodium [Moles/Vol] 138 mmol/L 136-145 [facility] TSH QnOrdered By: Fitz law on 07-19-2024 Thyroid Stimulating Hormone (TSH) 2.820 uIU/mL 0.358-3.740 [facility] Total proteinOrdered By: Caterina Jones on 07-19-2024 Protein [Mass/Vol] 7.8 g/dL 6.4-8.2 [facility] Triglycerides measurementOrd ered By: Fitz Jones on 07-19-2024 Triglyceride [Mass/Vol] 157 mg/dL <199 [facility] Comment on above: The drugs N-Acetylcy steine and Metamizole may falsely depress this assay.Serum Triglycerides Reference Interval Normal <150 mg/dL Borderline high 150 - 199 mg/dL High 200 - 499 mg/dL Very High > or = 500 mg/dL Very low density lipoprotein (VLDL) cholesterol measurementOrdered By: Fitz Jones on 07-19-2024 VLDL Cholesterol 31 mg/dL 5-40 [facility] White blood cell (WBC) count Ordered By: Fitz Jones on 07-19-2024 WBC (Bld) [#/Vol] 8.0 10*3/uL 4.4-11.0 [facility] CNOVon 11-03-2023 CNOV Office Visit (UCWSTR) RINA TOURE ([id number]) 1995 Date Time Provider Department 11/03/23 9:15 AM CLAUDIA BRANDT During your visit today, we recorded the following information about you: Claudia Brandt APRN.CNP 11/03/2023 9:40 AM Signed Patient triaged at [facility]. Here today with right eye infection, pain, slight fever. Reports change in color vision of infected eye. I will refer to ER Referring Provider: NAZIA LEE V [[id number]] Allergies As of Date: 11/03/2023 (No Known Allergies) Date Reviewed: 09/29/2023 Reviewed by: Juliet Pierce LPN - Fully Assessed Primary Visit Diagnosis:Vision changes [H53.9] Other Visit Diagnosis:Orbital cellulitis on right [H05.011] Prescriptions as of 11/03/2023 - multivit,thx,calcium ,iron,mins (MULTIVITAMIN AND MINERAL ORAL) Take by mouth. Problem List As Of Date: 11/03/2023 (None) Encounter Status:Closed by CLAUDIA BRANDT on 11/03/23 [facility] CNOVon 09-29-2023 CNOV Office Visit (UCWSTR) RINA TOURE ([id number]) 1995 M Date Time Provider Department 09/29/23 11:15 AM SANDRA ALMAZAN During your visit today, we recorded the [...] fever, headaches, myalgias, rash or sore throat. Rina Toure is a 28 year old male [...] issues discussed, (more content not included)... Normal [facility] EMERGENCY DEPARTMENTon 07-12 EMERGENCY DEPARTMENT [address] [address] HEALTH INFORMATION MANAGEMENT EMERGENCY DEPARTMENT : [id number] Signed Patient: RINA TOURE Acct:[id number] MRUN: [id number] : 1995 Sex: M Loc: ED ADM [...] Quality: sharp Consistency: constant Context: none Treatment [employer]PER[employer]: no prearrival treatment Fever: No - Related Data Home Medications: Home Medications Medication Instructions Recorded Confirmed Amox Tr/Potassium Clavulanate 1 tab PO BID #20 tablet 07/06/17 [Augmentin 875-125 Tablet] Hydrocodone Bit/Acetaminophen 1 tab PO Q6H PRN #6 tablet 07/06/17 [Mckinney 5/325 mg Tablet] Ibuprofen 800 mg PO [...] mood - Skin Skin Color: Present: Normal, Bangs Skin exam: Present: warm, dry - Expanded [...] BID #20 tablet 07/06/17 [Rx] Hydrocodone Bit/Acetaminophen [Mckinney 5/325 mg Tablet] 1 tab PO Q6H [...] tab PO Q6H PRN #6 tablet 07/06/17 [Mckinney 5/325 mg Tablet] Ibuprofen 800 mg PO TID PRN #30 tablet 07/06/17 Home medications and allergies reviewed: Yes Time Seen by Provider: 07/06/17 15:46 Patient seen by Midlevel: Independently - Consultation I saw and examined the patient: Yes Nurses Notes Reviewed and Agreed With?: Yes - Dictation Amendments/Documenta tion: [employer] Document Only Electronically Generated By: HELGA PRINGLE PA-C Generated Date/Time: 07/06/17 1636 Electronically Signed By: HELGA PRINGLE PA-C Signed Date/Time 07/06/17 2104 Co Signed Electronically By: Co Signed Date/Time: 07/12/17 0547 07/12/17 0547 CC: CATA PIERCE DO Normal [facility] LUPRCon 07-06-2017 LUP Upper Respiratory Cult = Final reportPerformed at: [facility] [place] [id number] Director: Fernie Martines PhD, Phone: [phone] D REPORT: Previous result was SEE BELOW at 13:05 on 07/08/17Upper Resp Result 1 = CommentRoutine respiratory floraPerformed at: [facility] [address] [id number] Director: Fernie Martines PhD, Phone: [phone] Resp Result 2 = NPUpper Resp Result 3 = NPUpper Resp Result 4 = NPAntimicrobial Suscept = NPSource Upper Respiratory = throat Normal [facility] Comment on above: Performed By: #### M IC2 ####[address] [id number] Rapid Strep Aon 07-06-2017 Rapid strep test Negative Normal Negative [facility] Comment on above: Result Comment: Thro at culture reflexed. Performed By: #### S TREP ####[address] [id number] Vital Signs Date Time Vital Sign Value Performing Clinician Selma rosenthal 02-25-2025 13:15-0400 Body temperature 97.4 [degF] Fitz Jones MD Work Phone: [facility] 02-25-2025 13:15-0400 Diastolic blood pressure 92 mm[Hg] Fitz Jones MD Work Phone: [facility] 02-25-2025 13:15-0400 Heart rate 70 /min Fitz Jones MD Work Phone: [facility] 02-25-2025 13:15-0400 Respiratory rate 16 /min Fitz Jones MD Work Phone: [facility] 02-25-2025 13:15-0400 SaO2% (BldA) [Mass fraction] 98 % Fitz Jones MD Work Phone: [facility] 02-25-2025 13:15-0400 Systolic blood pressure 148 mm[Hg] Fitz Jones MD Work Phone: [facility] 02-25-2025 08:53-0400 Body height 187.96 cm Fitz Jones MD Work Phone: [phone])371-646295 [address] 02-25-2025 08:53-0400 Body mass index (BMI) [Ratio] 28 kg/m2 Fitz Jones MD Work Phone: 5(418)703-514905 [place] [address] 02-25-2025 08:53-0400 Body weight 99 kg Fitz Jones MD Work Phone: 2(761)876-162095 [address] 02-02-2025 08:02-0400 Body height 187.96 cm Fitz Jones MD Work Phone: 3([phone])545-892295 [address] 02-02-2025 08:02-0400 Body mass index (BMI) [Ratio] 28.2 kg/m2 Fitz Jones MD Work Phone: 3([phone])[phone] [place] [address] 02-02-2025 08:02-0400 Body weight 99.79 kg Fitz Jones MD Work Phone: 0(896)[phone] [address] 01-22-2025 08:01-0400 Body height 187.96 cm Fitz Jones MD Work Phone: [facility] 01-22-2025 08:01-0400 Body mass index (BMI) [Ratio] 28.1 kg/m2 Fitz Jones MD Work Phone: [facility] 01-22-2025 08:01-0400 Body weight 99.56 kg Fitz Jones MD Work Phone: [facility] 01-19-2025 00:36-0400 Body temperature 97.4 [degF] Fitz Jones MD Work Phone: [facility] 01-19-2025 00:36-0400 Diastolic blood pressure 95 mm[Hg] Fitz Jones MD Work Phone: [facility] 01-19-2025 00:36-0400 Heart rate 74 /min Fitz Jones MD Work Phone: [facility] 01-19-2025 00:36-0400 Respiratory rate 16 /min Fitz Jones MD Work Phone: [phone])[phone] [place] [address] 01-19-2025 00:36-0400 SaO2% (BldA) [Mass fraction] 99 % Fitz Jones MD Work Phone: [facility] 01-19-2025 00:36-0400 Systolic blood pressure 130 mm[Hg] Fitz Jones MD Work Phone: [facility] 01-18-2025 21:36-0400 Body height 187.96 cm Fitz Jones MD Work Phone: 1(294)[phone] [place] [address] 01-18-2025 21:36-0400 Body mass index (BMI) [Ratio] 29 kg/m2 Fitz Jones MD Work Phone: [facility] 01-18-2025 21:36-0400 Body weight 102.6 kg Fitz Jones MD Work Phone: 7([phone] [place] [address] 11-03-2023 10:35-0400 Body temperature 98.3 [degF] [facility] 11-03-2023 10:35-0400 Diastolic blood pressure 69 mm[Hg] [facility] 11-03-2023 10:35-0400 Heart rate 70 /min [facility] 11-03-2023 10:35-0400 Respiratory rate 16 /min [facility] 11-03-2023 10:35-0400 SaO2% (BldA) [Mass fraction] 98 % [facility] 11-03-2023 10:35-0400 Systolic blood pressure 119 mm[Hg] [facility] 11-03-2023 09:43-0400 Body height 187.96 cm [facility] 11-03-2023 09:43-0400 Body mass index (BMI) [Ratio] 27.7 kg/m2 [facility] 11-03-2023 09:43-0400 Body weight 98 kg [facility] 09-29-2023 11:16-0500 Body temperature 97.9 [degF] Sandra Praisler[employer] Work Phone: [facility] 09-29-2023 11:16-0500 Body weight 97.9 kg Sandra Praisler-Wood [employer] Work Phone: [facility] 09-29-2023 11:16-0500 Diastolic blood pressure 82 mm[Hg] Sandra Praisler-Wood [employer] Work Phone: [facility] 09-29-2023 11:16-0500 Heart rate 64 /min Sandra Praisler-Wood [employer] Work Phone: [facility] 09-29-2023 11:16-0500 Respiratory rate 18 /min Sandra Praisler[employer] Work Phone: [facility] 09-29-2023 11:16-0500 SaO2% (BldA) [Mass fraction] 97 % Sandra Praisler[employer] Work Phone: [facility] 09-29-2023 11:16-0500 Systolic blood pressure 127 mm[Hg] Sandra Praisler-[employer] Work Phone: [facility] 12-09-2021 17:52-0400 Body temperature 98.6 [degF] Rio Velásquez MD Work Phone: [facility] 12-09-2021 17:52-0400 Body weight 97.7 kg Rio Velásquez MD Work Phone: [facility] 12-09-2021 17:52-0400 Diastolic blood pressure 64 mm[Hg] Rio Velásquez MD Work Phone: [facility] 12-09-2021 17:52-0400 Heart rate 66 /min Rio Velásquez MD Work Phone: [facility] 12-09-2021 17:52-0400 Respiratory rate 16 /min Rio Velásquez MD Work Phone: [facility] 12-09-2021 17:52-0400 SaO2% (BldA) [Mass fraction] 99 % Rio Velásquez MD Work Phone: [facility] 12-09-2021 17:52-0400 Systolic blood pressure 112 mm[Hg] Rio Velásquez MD Work Phone: [facility] Encounters Encounter Date Encounter Type Care Provider Facility Start: 02-25-2025 Non-patient / Non-visit Dr. Cortes Henao MD -[facility] Start: 02-25-2025 End: 02-25-2025 Admission to same day surgery center Dr. Nolan H[facility]o [facility] Start: 02-25-2025 End: 02-25-2025 ambulatory Nolan Henao Facility:[facility] Start: 02-02-2025 End: 02-02-[address] Nolan Hena[facility] MD -[facility] Work Phone: Start: 02-02-2025 End: 02-02-2025 ambulatory Fitz Jones MD Work Phone: -[facility] Start: 01-22-2025 End: 01-22-2025 ambulatory Fitz Jones MD Work Phone: -[facility] Start: 01-22-2025 End: 01-22-[address] Fitz Jones MD -[facility] Work Phone: Start: 01-22-2025 End: 01-22-[address] Nolan Henao MD -[facility] Work Phone: Start: 01-22-2025 End: 01-22-2025 ambulatory Fitz Jones MD Work Phone: -[facility] Start: 01-22-2025 End: 01-22-2025 ambulatory Fitz Jones Facility:[facility] Start: 01-18-2025 End: 01-19-2025 Emergency department patient visit Fitz Jones MD Work Phone: -Emergency Department Work Phone: Start: 10-24-2024 Encounter for genera l adult medical examination without abnormal findings Fitz Jones [facility] Start: 10-11-2024 End: 10-11-2024 ambulatory Fitz Jones MD Work Phone: [facility] Work Phone: Start: 10-11-2024 End: 10-11-[address] Fitz Jones MD -Laboratory Work Phone: Start: 10-11-2024 End: 10-11-2024 ambulatory Fitz Jones Facility:[facility] Start: 10-04-2024 End: 10-04-2024 ambulatory Fitz Jones MD Work Phone: [facility] Work Phone: Start: 10-04-2024 End: 10-04-[address] Fitz Jones MD -Ultrasound, [facility] Work Phone: Start: 10-04-2024 End: 10-04-2024 ambulatory Fitz Jones Facility:[facility] Start: 07-19-2024 End: 07-19-[address] Fitz Jones MD -Laboratory Work Phone: Start: 07-19-2024 End: 07-19-2024 ambulatory Fitz Karen Facility:[facility] Start: 11-03-2023 End: 11-03-2023 ambulatory Facility:[facility] Start: 11-03-2023 End: 11-03-2023 Emergency department patient visit [facility]-Emergency Department Work Phone: Start: 11-03-2023 End: 11-03-2023 Patient encounter procedure Claudia Brandt [employer] Work Phone: [facility] Comment on above: Vision changes (Prim angelina Dx); Orbital cellulitis on right Start: 09-29-2023 End: 09-29-2023 ambulatory Facility:[facility] Start: 09-29-2023 End: 09-29-2023 Patient encounter procedure Sandra ZhouRosanneNaveen [employer] Work Phone: [facility] Comment on above: Bacterial sinusitis (Primary Dx); Bacterial conjunctivitis Start: 01-02-2022 Telephone encounter Rio King MD Work Phone: [facility] Comment on above: Prescription Request Start: 12-09-2021 End: 12-09-2021 Patient encounter procedure Rio Velásquez MD Work Phone: [facility] Comment on above: Contact dermatitis d ue to plant (Primary Dx) Start: 07-06-2017 End: 07-06-2017 Emergency department patient visit CATA LAYTONSAMMISABA Facility:[facility] Procedures Date Procedure Procedure Detail Performing Clinician Start: 02-25-2025 Procedure on shoulder joint Fitz Jones MD Work Phone: Start: 01-22-2025 MRI of joint of lowe r extremity Fitz Jones MD Work Phone: Start: 01-18-2025 Plain X-ray of shoulder Fitz Jones MD Work Phone: Start: 10-04-2024 Ultrasonography of abdomen Fitz Jones MD Work Phone: Plan of Treatment Date Care Activity Detail Author Start: 02-25-2025 Patient discharge [facility] Start: 02-25-2025 Application of device [facility] Start: 02-25-2025 Application of ice collar, cap or bag [facility] Start: 02-25-2025 Assessment of risk of venous thromboembolism [facility] Start: 02-25-2025 Catheterization of vein [facility] Start: 02-25-2025 Continuous positive airway pressure ventilation treatment [facility] Start: 02-25-2025 Following clinical pathway protocol [facility] Start: 02-25-2025 Incentive spirometry [facility] Start: 02-25-2025 Introduction of urinary catheter [facility] Start: 02-25-2025 Provision of activity privileges [facility] Start: 02-25-2025 Vital signs measurements [facility] Start: 02-25-2025 End: 02-25-2025 [facility] Start: 01-19-2025 [facility] Start: 03-23-2024 Influenza vaccination Influenza Vaccine (Season Ended) [facility] Start: 11-03-2023 [facility] Start: 07-23-2023 Behavioral Health Screening Behavioral Health Screening [facility] Start: 07-23-2023 Depression Assessment Depression Assessment [facility] Start: 03-23-2023 Covid-19 Vaccine ( season) Covid-19 Vaccine ( season) [facility] Start: 03-23-2023 Influenza vaccination Influenza Vaccine (#1) [facility] Start: 03-23-2022 Influenza vaccination INFLUENZA (Season Ended) [facility] Start: 01-28-2020 Urine microalbumin profile DTaP,Tdap,Td Vaccine (7 - Td or Tdap) [facility] Start: 2016 Urine microalbumin profile DTAP,TDAP,TD (1 - Tdap) [facility] Start: 2015 HEPATITIS C SCREENING HEPATITIS C SCREENING [facility] Start: 2015 Hepatitis C screening Hepatitis C Screening [facility] Start: 2015 HIV SCREENING HIV SCREENING [facility] Start: 2015 HIV screening HIV Screening [facility] Start: 2011 PEDS TO ADULT TRANSITION ANNUAL ASSESSMENT PEDS TO ADULT TRANSITION ANNUAL ASSESSMENT [facility] Start: 2009 Adult depression screening assessment DEPRESSION SCREENING [facility] Start: 2009 PEDS TO ADULT TRANSITION INITIAL DISCUSSION PEDS TO ADULT TRANSITION INITIAL DISCUSSION [facility] Start: 2008 HPV VACCINE (1 - Male 2-dose series) HPV VACCINE (1 - Male 2-dose series) [facility] Start: 2007 MENINGOCOCCAL B: Consider based on risk (1 of 2 - Risk Bexsero 2-dose series) MENINGOCOCCAL B: Consider based on risk (1 of 2 - Risk Bexsero 2-dose series) [facility] Start: 2002 COVID-19 VACCINE (#1) COVID-19 VACCINE (#1) [facility] Patient Education ED Periorbital Cellulitis [facility] Work Phone: Patient referral [facility] Work Phone: Serum testosterone measurement [facility] Testosterone Free [Mass/volume] in Serum or Plasma [facility] Testosterone measurement [facility] Immunizations Immunization Date Immunization Notes Care Provider Carmela bowen 04-09-2013 influenza virus vacc ine, unspecified formulation Sandra Almazan APRN.CNP Work Phone: [facility] Payers Date Payer Category Payer Self-pay 2024 Unknown [id number] Self-pay [id number] Unknown [id number] Unknown [id number] 2.16.8 [id number] Unknown [id number] 2.16.8 [id number] Unknown [id number] 2.16.8 [id number] Unknown [id number] 2.16.8 [id number] Unknown [id number] 2.16.8 [id number] Unknown [id number] 2.16.8 [id number] Unknown [id number] 2.16.8 [id number] Unknown [id number] 2.16.8 [id number] Social History Date Type Detail Facility Start: 12-09-2021 End: 02-11-2025 Tobacco smoking status NHIS Never smoked tobacco [facility] Start: 12-09-2021 End: 09-29-2023 Tobacco use and exposure Smokeless tobacco non-user [facility] Start: 12-09-2021 End: 09-29-2023 Alcohol intake Current drinker of alcohol (finding) [facility] Start: 12-09-2021 History SDOH Alcohol Comment social [facility] Start: 1995 Sex Assigned At Not on file [facility] Start: 11-29-2021 End: 12-09-2021 Exposure to SARS-CoV-2 (event) Not sure [facility] Start: 09-29-2023 End: 10-01-2023 History of Social function [facility] Start: 09-29-2023 End: 10-01-2023 Tobacco use panel [facility] Start: 11-03-2023 Tobacco smoking stat us NHIS Unknown if ever smoked [facility] Start: 1995 Sex Assigned At Male W [facility] National Score (1-100), lower number is lower risk 48 [facility] Start: 10-14-2024 End: 10-17-2024 Sex Male (finding) [facility] Goals Date Patient Goal Desired Activity /State Mental Status Date Assessment Result Facility 02-25-2025 Cognitive function Voice/Name;Touch/Mike nieves [facility] Work Phone: 02-25-2025 Cognitive function Patient Orien tation Person;Place;Time [facility] Work Phone: Clinical Notes 12-09-2021 to 02-25-2025 Note Date & Type Note Facility 02-25-2025 Discharge summary Note Date/Time February 25, 2025 12:07pm [facility] Medical Records Department [address] [place] [address] Instructions for Home/Discharge Instructions 02/25/25 1203 MR#: [id number] Acct: [id number] Name: RINA TOURE SAKSHI Rep #:[id number] : 1995 29 From: Nolan Henao MD PCP: Dr. Fitz Jones MD Status:REG SD C Discharge Instructions Diet Discharge Diet: No restrictions Activity Discharge Activity: Return to Normal Activity Ice area for (Minutes): 10 Lifting Restrictions: ok to remove sling at rest, pendulums 4x/day, avoid ER of the shoulder Additional Activity Instructions:: ok for hand wrist elbow rom gently 4x/day, nolifting over 1 pound Dressing / Incision Call your doctor if your incision/area has: Continuous Slow Oozing, Sudden Increased Bleeding, Increased Pain/ Swelling, Increased Redness, Foul Smelling Discharge and Swelling at the incision site Call your doctor if you observe: Fever of 101 or Higher, Coldness, Increased Pain and Numbness or Tingling Change Dressing in: 2 days Cleanse incision/area with: Do not get Incision Wet Follow Up Care Please Follow Up With: Nolan Henao MD When: within 2 weeks Test Results: Test results from this visit will be discussed in further detail at your follow-up appointment, if applicable. Discharge Plan Admission Attending Provider: Nolan Henao Primary Care Provider: Fitz Jones Instructions Print Language: Sierra Leonean Discharge Orders/Prescriptions Prescriptions: New oxycodone-acetaminophen [Endocet] 5-325 mg tablet 1 tab PO Q4H MDD 6 PRN (Reason: pain) 5 Days Qty: 20 0RF ibuprofen 400 mg tablet 400 mg PO Q6H MDD 4 PRN (Reason: pain) 5 Days Qty: 20 1RF No Action ibuprofen 200 mg capsule 200 mg PO Q6H PRN (Reason: pain) Referrals / Follow Up: Fitz Jones MD [Primary Care Provider] - Nolan Henao MD [Med Staff - Active Staff] - Disposition Disposition (needs filled in before D/C Order can be placed): Home, Self Care 02/25/25 1207<Electronically signed by Nolan Henao MD>Nolan Henao MD CC: Dr. Fitz Jones MD ~ Signed [facility] Work Phone: 1(317) 817-498508-06-2025 Consult note [facility] Medical Records Department [address] [place] [address] Anesthesia Postop Eval I 02/25/25 1217 MR#: [id number] Acct: [id number] Name: RINA TOURE Rep #:[id number] : 1995 29 From: [place] GO NA PCP: Dr. Fitz Jones MD Status:REG SD C Y Race: C Location: [place] [address] Anesthesia: Postop Eval I Current Vital Signs Temperature: 97.5 F Pulse Rate: 83 Blood Pressure: 138/84 Respiratory Rate: 16 Pulse Ox: 96 Oxygen Delivery Method: Room Air Assessment Airway patent: Yes Spontaneous unlabored respirations: Yes Mental status: Awake and Calm nausea: No Vomiting: No Anesthesia Complication: No Fluid Hydration Crystalloid volume administer (ml): 1,200 Total IV fluid infused: 1,200 Progress Note Anesthesia document: Postop Eval 1 completed: Yes 02/25/25 1218 BALANCE WHEEL FACER> Date _ [place] Wall[place] BALANCE WHEEL FACER Cosigner Signature: Date CC: ~ Signed [facility]08-06-2025 Discharge summary [facility] Medical Records Department [address] [place] [address] Instructions for Home/Discharge Instructions 02/25/25 1203 MR#: [id number] Acct: [id number] Name: RINA TOURE Rep #:[id number] : 1995 29 From: Nolan Henao MD PCP: Dr. Fitz Jones MD Status:REG SD C Discharge Instructions Diet Discharge Diet: No restrictions Activity Discharge Activity: Return to Normal Activity Ice area for (Minutes): 10 Lifting Restrictions: ok to remove sling at rest, pendulums 4x/day, avoid ER of the shoulder Additional Activity Instructions:: ok for hand wrist elbow rom gently 4x/day, nolifting over 1 pound Dressing / Incision Call your doctor if your incision/area has: Continuous Slow Oozing, Sudden Increased Bleeding, Increased Pain/ Swelling, Increased Redness, Foul Smelling Discharge and Swelling at the incision site Call your doctor if you observe: Fever of 101 or Higher, Coldness, Increased Pain and Numbness or Tingling Change Dressing in: 2 days Cleanse incision/area with: Do not get Incision Wet Follow Up Care Please Follow Up With: Nolan Henao MD When: within 2 weeks Test Results: Test results from this visit will be discussed in further detail at your follow- up appointment, if applicable. Discharge Plan Admission Attending Provider: Nolan Henao Primary Care Provider: Fitz Jones Instructions Print Language: [place]an Discharge Orders/Prescriptions Prescriptions: New oxycodone-acetaminophen [Endocet] 5-325 mg tablet 1 tab PO Q4H MDD 6 PRN (Reason: pain) 5 Days Qty: 20 0RF ibuprofen 400 mg tablet 400 mg PO Q6H MDD 4 PRN (Reason: pain) 5 Days Qty: 20 1RF No Action ibuprofen 200 mg capsule 200 mg PO Q6H PRN (Reason: pain) Referrals / Follow Up: Fitz Jones MD [Primary Care Provider] - Nolan Henao MD [Med Staff - Active Staff] - Disposition Disposition (needs filled in before D/C Order can be placed): Home, Self Care 02/25/25 1207Scleonid Henao MD CC: Dr. Fitz Jones MD ~ Signed [facility]08-06-2025 Procedure note [facility] Medical Records Department [address] [place] [address] Operative Report 02/25/25 1154 MR#: [id number] Acct: [id number] Name: RINA TOURE Rep #:[id number] : 1995 29 From: Nolan Henao MD PCP: Dr. Fitz Jones MD Status:REG SD C Location: [place] [address] Problems Associated Problem List Diagnoses (1) Tear of left glenoid labrum: (2) Other instability, left shoulder: Procedures Musculoskeletal 20xxx-29xxx: Other Procedure See Report Operative Report (Standard) Operative Information Date of Procedure: 02/25/25 Pre-Operative Diagnosis: L shoulder labrum tear Post-Operative Diagnosis: same Surgery/Procedure Performed: L shoulder arthroscopy, debridement, labrum repair forensic toxicologist: Yes Swatch Maker: suyapa Tasks completed by first officer: Retracting Additional golf player assistant?: No Type of Anesthesia: Block,Regional and General RN Documented Start/Stop Times: Operation Date: 02/25/25 10:30 Case Time Into Pre-Op 02/25/25 08:42 Anesthesia Start 02/25/25 10:18 Into Room 02/25/25 10:18 Procedure Start 02/25/25 10:39 Procedure Start Time: 10:39 Procedure Stop Time: 12:02 Select all DRAINS/GRAFTS/IMPLANTS that apply: Implanted device Implanted device details: arthrex 1.8mm suture taks x 6 Estimated Blood Loss: 10 Specimen collected: No Description of surgery: Patient brought to the operating room theater. Placed supine on the table. General anesthesia induced. 2 g of IV Ancef administered prior to the start of the case. Patient transferred left side up lateral decubitus beanbag positioner. Axillary roll used. All bony prominences padded. SCDs on the legs. Upper extremity prepped and draped in the usual sterile fashion with chlorhexidine- based prep solution allowing over 3 minutes drying time prior to draping. Arm in 40 degrees of abduction with 10 pounds of inline traction. Preoperative timeout performed to confirm the site patient and the surgery. Began by inserting the arthroscope into the intra-articular portion of the shoulder through a standard posterior arthroscopy portal. Did a full diagnosticarthroscopy. Biceps tendon appeared normal asdid the subscapularis and undersurface the rotator cuff no loose bodies. There is a labrum tear from 2:00all the way to the 8:00 on the clock face. I elevated the tissue I debrided anyscar tissue andfrayed tissue from the labrum circumferentially. I slightly elevated the labrum for a tension-free repair. I used shaving instruments to create a bleeding bony bed for healing as well as taking off about 1 mm of cartilage using a ring curette for planned to superior shift and anterior to posterior shift of the labrum and capsular tissue. I placed 2 cannulas anteriorly and 2 cannulas posteriorly through the rotator interval as well as at the level of the glenoid posteriorly. I looked from anterior to posterior. I used 2 Arthrex suturetack 1.8 mm all suture anchors at the 7:00 and 8:00 positions. I then used a nitinol wire to pass and shuttle the repair suture underneath and circumferentially around the labrum and some capsular tissue, and then converted the repair suture using knotless technique. I waited until the end of the case to fully tension each anchor. I then did the same technique anteriorly using four 1.8 mm fiber tack Arthrex implants at the 530 4:30, 4:00 and 3:00 positions. I sequentially tightened thesutures from inferior to superior. I then went back posteriorly and again tighten the sutures and cut all of the suture limbs short. Labrum was stable and solid to probing arthroscopy pictures taken and saved onto the system throughout the case. Arthroscope withdrawn wound cleaned with wet and dry dressing hemostasis achieved portal sites closed with 3-0 Monocryl sutures followed by cleaning of the skin with wet dry dressing and Steri-StripsAdaptic 4 x 4 gauze ABD dressingcloth tape with an abduction pillow sling for the upper extremity. Patient woken up from a general anesthetic transferred off the operating table taken to postanesthetic care unit in stable condition. All sponge needle instrument counts were correct no complications Plan for the patient discharged home according to the surgery criteria follow- upin the office within 2 weeks time and pendulum exercises 4 times a day hand wrist and elbow exercises but [place]. cpt [address], [address] Surgical Findings: as above Complications Complications: No Admit VTE Documentation VTE Present on Admission: No VTE Mechan Device Prophylaxis: SCD's VTE Pharm Prophylaxis ordered?: No Reason prophylaxis not ordered: Treatment Not Indicated 02/25/25 1202 Cosigner Signature (if applicable): CC: Dr. Fitz Jones MD; Dr. Nolan Henao MD~ Signed [facility]08-06-2025 History and physical note Author Nolan Henao [facility] Note Date/Time February 25, 2025 9:4 4am [facility] Medical Records Department [address] [place] [address] History & Physical Exam 02/25/25 0943 MR#: [id number] Acct: [id number] Name: RINA TOURE Rep #:[id number] : 1995 29 From: Nolan Henao MD PCP: Dr. Fitz Jones MD Status:REG SD C Location: [place] [address] HPI - General HPI Narrative RINA TOURE, is a 29 M who presents for left shoulder arthroscopy, labral repair. no changes to h and p. rab, post op instructions, and narcotic counselling (patient wants ibuprofen called in as well to try and minimize narc use). left shoulder marked. ok to proceed. no further questions or concerns. MR#: [id number] Acct: [id number] Name: RINA TOURE Rep #: [id number] : 1995 Provider: Dr. Nolan Henao MD Age/Sex: 29/M Location: [facility] Status: Signed Intake Vital Signs 01/23/2508:01 02/03/2508:02 Height 6 ft 2 in 6 ft 2 in Weight: 219 lb 8 oz 220 lb BMI 28.1 28.2 Intake Visit Reasons: LEFT SHOULDER Chief Complaint: Left shoulder MRI review Accompanied by: Is patient in pain?: No Allergies No Known Allergies Allergy (Verified 02/02/25 08:08) Medications ?Medication ?Instructions ?Recorded ?Confirmed ?Type ibuprofen 200 mg capsule 200 mg PO Q6H PRN 02/02/25 02/02/25 Hist ory Have you fallen in the past year?: [...] documented by [ ], acting as scribe. RINA TOURE is a 29 year old M [...] Psychologic: Yes reasonable and appropriate Supplemental Info [facility] Imaging Services [address] [place] [address] [phone] Upper Ext Joint Only(Routine) MR#: [id number] Acct: [id number] Name: RINA TOURE Rep #: [id number] : 1995 M 29 From: Austyn Boateng MD PCP: Dr. Fitz Jones MD Status: REG CLI Study: Upper Ext Joint Only(Routine) Date of Exam: 01/22/25 Exam# [id number] Ordering Dr: Fitz Jones MD PROCEDURE: UPPER [...] you fallen in the past year?: No [facility] Medical History Alcohol use Fatty liver Syncope Heartburn Leg cramps Non-smoker Tear of left glenoid labrum Other instability, left shoulder Home Medications ?Medication ?Instructions ?Recorded ?Last Taken ?Type ibuprofen 200 mg capsule 200 mg PO Q6H PRN pain 02/02 Unknown History Allergy/AdvReac Type Severity Reaction Status Date / Time No Known Allergies Allergy Verified 02/11/25 12:57 Surgical History History of myringotomy H/O adenoidectomy Social History Smoking Status: Never smoker Vital Signs Vital Signs Vital Signs: 02/25/25 08:53 02/25/25 08:53 02/25/25 09:03 Temperature 97.5 F L 97.5 F L Temperature Source Temporal Pulse Rate 80 80 Respiratory Rate 16 16 Respiratory Pattern Normal Blood Pressure 129/86 H 129/86 H Blood Pressure Mean 100 Blood Pressure Source Monitor Blood Pressure Position Semi-Fowlers Blood Pressure Location Left Arm Pulse Ox 16 16 Oxygen Delivery Method Room Air Weight Weight: 218 lb 4.122 oz Body Mass Index (BMI) 28.0 02/25/25 0944 <Electronically signed by Nolan Henao MD> Cosigner Signature (if applicable): CC: Dr. Fitz Jones MD; Dr. Nolan Henao MD~ Signed [facility] Work Phone: 1(789) 419-267508-06-2025 Consult note Author Jacob samantha [facility] Note Date/Time February 25, 2025 9:0 3am [facility] Medical Records Department [address] [place] [address] Pre-Anesthesia Evaluation 02/25/25 0902 MR#: [id number] Acct: [id number] Name: RINA TOURE Rep #:[id number] : 1995 29 From: Jacob Kirkpatrick MD PCP: Dr. Fitz Jones MD Status:REG SD C Y Race: C Location: [place] [address] ASA Classification* ASA Classification ASA Classification: 2 Assessment & Plan Anesthesia* Anesthesia Assessment Anesthesia Assessment: Discussed sedation and/or anesthesia options, risks, benefits, and alternatives with patient/parents/legal guardian/POA. Questions invited. The patient/parents/legal guardian/POA seems to understand and agrees to proceedwith anesthesia plan. Reviewed the physical assessment, medical history, allergy history and patient home medications list prior to surgery/procedure/anesthetic and documented any changes. Performed airway and anesthesia risk assessments. Anesthesia Type Anesthesia Type: General and Block Anesthesia Focused Assessment* Temperature: 97.5 F Pulse Rate: 80 Blood Pressure: 129/86 Respiratory Rate: 16 Pulse Ox: 16 Airway Assessment Mouth opens: >3 cm Mallampati Score: II Labs Anesthesia Preop lab: CBC WBC 8.0 K/mm3 (4.4-11.0) 07/19/24 08:19 07/19/24 RBC 5.02 M/mm3 (4.6-6.2) 07/19/24 08:19 07/19/24 Hgb 14.5 g/dL (13.0-16.5) 07/19/24 08:19 07/19/24 Hct 43.7 % (40-54) 07/19/24 08:19 07/19/24 Plt Count 372 K/mm3 (150-450) 07/19/24 08:19 07/19/24 CHEMISTRY Potassium 4.0 mmol/L (3.5-5.1) 07/19/24 08:19 07/19/24 Sodium 138 mmol/L (136-145) 07/19/24 08:19 07/19/24 BUN 14 mg/dL (7-18) 07/19/24 08:19 07/19/24 Creatinine 0.95 mg/dL (0.70-1.30) 07/19/24 08:19 07/19/24 Glucose 100 mg/dL (74-106) 07/19/24 08:19 07/19/24 TSH 2.820 uIU/mL (0.358-3.740) 07/19/24 08:19 06/23 03/15 COAG Pre-Assessment Diagnosis/Proposed Procedure Planned Operative Procedure(s): LEFT SHOULDER ARTHROSCOPY LABRUM STABLIZATION Anesthesia History Anesthesia History - hosiery mender: Anesthesia History - hosiery mender Hx Hospitalization No 02/11/25 12:58 Any Problems With Anesthesia No 02/11/25 12:58 Cholinesterase deficiency No 02/11/25 12:58 You/Your Family Experience No 02/11/25 12:58 fever (hyperthermia) with Relationship Recent Exposure to Contagious No 02/25/25 08:53 Disease Does patient have nerve No 02/11/25 12:58 stimulator Patient instructed to have device shut off --Does patient have Pacemaker No 02/25/25 08:53 or ICD? When Was Last Pacemaker Check QUESTION #4 FULL TEXT: You/Your Family Experience fever (hyperthermia) with Anesthesia Last Oral Intake Last Oral intake: Last Oral Intake NPO since 20:00 02/25/25 08:53 Meds taken in AM with sips of No 02/25/25 08:53 water? Meds patient instructed to take am of surgery PONV PONV - hosiery mender: PONV - hosiery mender Female No 02/11/25 12:58 HX of Motion Sickness Yes 02/11/25 12:58 HX of N/V After Surgery No 02/11/25 12:58 Non-Smoker Yes 02/11/25 12:58 Duration of Surgery greater Yes 02/11/25 12:58 than 60 minutes Number of Risk Factors 3 02/11/25 12:58 PONV Score Moderate Risk 02/11/25 12:58 Height & Weight Height & Weight: Anesthesia: Height & Weight Height 6 ft 2 in 02/25/25 08:53 Weight: 99 kg 02/25/25 08:53 Body Mass Index (BMI) 28.0 02/25/25 08:53 Respiratory Assessment Respiratory Assessment - hosiery mender: Respiratory Tract Infection Hx - hosiery mender Hx Respiratory Tract Infection No 02/11/25 12:58 STOP Sleep Apnea STOP Sleep Apnea - hosiery mender: STOP Sleep Apnea - hosiery mender Hx Hypertension No 02/11/25 12:58 Hx Sleep Apnea No 02/11/25 12:58 CPAP BIPAP Do you snore loudly (louder Yes 02/11/25 12:58 than talking or can be heard Do you often feel tired/ No 02/11/25 12:58 fatigued/ sleepy during daytime? Has anyone observed you stop No 02/11/25 12:58 breathing during sleep? STOP Results Negative 02/11/25 12:58 QUESTION #5 FULL TEXT : Do you snore loudly (louder than talking or can be heard through closed doors)? 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 Specify any problems Hx of Preganancy in last 3 N/A 02/11/25 12:58 Months Nurse Filling Out Transfusion DSCHRIBER 02/11/25 12:58 & Questions: Date: 02/11/25 02/11/25 12:58 Time: 13:00 02/11/25 12:58 Patient unable to answer at this time (ie. confused, unrespo /Reproduction History /Reproductive History - hosiery mender: /Reproductive Hx- hosiery mender Hx Now No 02/11/25 12:58 Gestational Age (in weeks): EDC: Hx Hx Para Hx Section SAB No 02/11/25 12:58 Active Medications Active Medications: Current Medications Generic Name Dose Route Start Last Admin Trade Name Freq PRN Reason Stop Dose Admin Cefazolin Sodium 2 gm/ Sodium 110 mls @ 200 mls/hr 02/25/25 09:30 Chloride IV 02/25/25 10:02 INTRAOP ONE Lactated Ringer's 1,000 mls @ 15 mls/hr 02/25/25 08:45 02/25/25 08:59 IV 15 mls/hr .Q48H RAMONA Administration PFSH Medical History Alcohol use Fatty liver Syncope Heartburn Leg cramps Non-smoker Tear of left glenoid labrum Other instability, left shoulder Home Medications ?Medication ?Instructions ?Recorded ?Last Taken ?Type ibuprofen 200 mg capsule 200 mg PO Q6H PRN pain 02/02 Unknown History Allergy/AdvReac Type Severity Reaction Status Date / Time No Known Allergies Allergy Verified 02/11/25 12:57 Surgical History History of myringotomy H/O adenoidectomy Social History Smoking Status: Never smoker Review of Systems (Anesthesia) ROS Narrative System reviewed and no additional complaints, except as documented. 02/25/25902 <Electronically signed by Jacob Kirkpatrick MD > Date _ Jacob Freitas Signature: Date CC: ~ Signed [facility] Work Phone: [phone]) 138-808608-06-2025 History and physical note [facility] Medical Records Department [address] [place] [address] History & Physical Exam 02/25/25 0943 MR#: [id number] Acct: [id number] Name: RINA TOURE Rep #:[id number] : 1995 29 From: Nolan Henao MD PCP: Dr. Fitz Jones MD Status:REG SD C Location: [address] - [facility] HPI Narrative RINA TOURE, is a 29 M who presents for left shoulder arthroscopy, labral repair. no changes to h and p. rab, post op instructions, and narcotic counselling (patient wants ibuprofen called in [facility] to try and minimize narc use). left shoulder marked. ok to proceed. no further questions or concerns. MR#: [id number] Acct: [id number] Name: RINA TOURE Rep #: [id number] : 1995 Provider: Dr. Nolan Henao MD Age/Sex: 29/M Location: [facility]IC[facility] Status: Signed Intake Vital Signs 01/23/2508:01 02/03/2508:02 Height 6 ft 2 in 6 ft 2 in Weight: 219 lb 8 oz 220 lb BMI 28.1 28.2 Intake Visit Reasons: LEFT SHOULDER Chief Complaint: Left shoulder MRI review Accompanied by: Is patient in pain?: No Allergies No Known Allergies Allergy (Verified 02/02/25 08:08) Medications ?Medication ?Instructions ?Recorded ?Confirmed ?Type ibuprofen 200 mg capsule 200 mg PO Q6H PRN 02/02/25 02/02/25 Hist ory Have you fallen in the past year?: No PFSH Medical History (Updated 02/02/25 @ 08:22 by Nolan Henao MD) Tear of left glenoid labrum Other instability, left shoulder Surgical History H/O adenoidectomy Social History Smoking Status: Never smoker HPI LEFT SHOULDER Details: This documentation accurately reflects the service provided and the decisions made by me, Dr. Barrera MD 02/02/25 0802. Part of today?s visit was documented by [ ], acting as scribe. RINA TOURE is a 29 year old M here today for FU L shoulder MRI. Patient needed a new note forwork he does most activities with his right upper extremity wants a new note to that effect. He is here with his today. Ortho Exam General General: Yes no acute distress Neurologic: Yes alert and Yes oriented x3 Psychologic: Yes reasonable and appropriate Supplemental Info [facility] Imaging Services [address] [place] [address] Upper Ext Joint Only(Routine) MR#: [id number] Acct: [id number] Name: RINA TOURE Rep #: [id number] : 1995 M 29 From: Austyn Boateng MD PCP: Dr. Fitz Jones MD Status: REG CLI Study: Upper Ext Joint Only(Routine) Date of Exam: 01/22/25 Exam# [id number] Ordering Dr: Fitz Jones MD PROCEDURE: UPPER [...] have a lower chance of recurrence and long- term better stability of the shoulder. We discussed [...] wear of hardware or fixation, instability, fracture, deepvein thrombosis and pulmonary embolism, anesthetic risks, , patient dissatisfaction, need for further surgery and other risks. Patient understood and wished to proceed with surgery,and signed the informed consent documentation. (2) Tear of left glenoid labrum: Status: Acute Clinical Quality Measures Falls Risk Screening/Assistive Devices Have you fallen in the past year?: No PFSH Medical History Alcohol use Fatty liver Syncope Heartburn Leg cramps Non-smoker Tear of left glenoid labrum Other instability, left shoulder Home Medications ?Medication ?Instructions ?Recorded ?Last Taken ?Type ibuprofen 200 mg capsule 200 mg PO Q6H PRN pain 02/02 Unknown History Allergy/AdvReac Type Severity Reaction Status Date / Time No Known Allergies Allergy Verified 02/11/25 12:57 Surgical History History of myringotomy H/O adenoidectomy Social History Smoking Status: Never smoker Vital Signs Vital Signs Vital Signs: 02/25/25 08:53 02/25/25 08:53 02/25/25 09:03 Temperature 97.5 F L 97.5 F L Temperature Source Temporal Pulse Rate 80 80 Respiratory Rate 16 16 Respiratory Pattern Normal Blood Pressure 129/86 H 129/86 H Blood Pressure Mean 100 Blood Pressure Source Monitor Blood Pressure Position Semi-Fowlers Blood Pressure Location Left Arm Pulse Ox 16 16 Oxygen Delivery Method Room Air Weight Weight: 218 lb 4.122 oz Body Mass Index (BMI) 28.0 02/25/25 0944 Cosigner Signature (if applicable): CC: Dr. Fitz Jones MD; Dr. Nolan Henao MD~ Signed [facility]08-06-2025 Consult note [facility] Medical Records Department [address] [place] [address] Pre-Anesthesia Evaluation 02/25/25 0902 MR#: [id number] Acct: [id number] Name: RINA TOURE Rep #:[id number] : 1995 29 From: Jacob Kirkpatrick MD PCP: Dr. Fitz Jones MD Status:REG SD C Y Race: C Location: [place] [address] ASA Classification* ASA Classification ASA Classification: 2 Assessment & Plan Anesthesia* Anesthesia Assessment Anesthesia Assessment: Discussed sedation and/or anesthesia options, risks, benefits, and alternatives with patient/parents/legal guardian/POA. Questions invited. The patient/parents/legal guardian/POA seems to understand and agrees to proceedwith anesthesia plan. Reviewed the physical assessment, medical history, allergy history and patient home medications list prior to surgery/procedure/anesthetic and documented any changes. Performed airway and anesthesia risk assessments. Anesthesia Type Anesthesia Type: General and Block Anesthesia Focused Assessment* Temperature: 97.5 F Pulse Rate: 80 Blood Pressure: 129/86 Respiratory Rate: 16 Pulse Ox: 16 Airway Assessment Mouth opens: >3 cm Mallampati Score: II Labs Anesthesia Preop lab: CBC WBC 8.0 K/mm3 (4.4-11.0) 07/19/24 08:19 07/19/24 RBC 5.02 M/mm3 (4.6-6.2) 07/19/24 08:19 07/19/24 Hgb 14.5 g/dL (13.0-16.5) 07/19/24 08:19 07/19/24 Hct 43.7 % (40-54) 07/19/24 08:19 07/19/24 Plt Count 372 K/mm3 (150-450) 07/19/24 08:19 07/19/24 CHEMISTRY Potassium 4.0 mmol/L (3.5-5.1) 07/19/24 08:19 07/19/24 Sodium 138 mmol/L (136-145) 07/19/24 08:19 07/19/24 BUN 14 mg/dL (7-18) 07/19/24 08:19 07/19/24 Creatinine 0.95 mg/dL (0.70-1.30) 07/19/24 08:19 07/19/24 Glucose 100 mg/dL (74-106) 07/19/24 08:19 07/19/24 TSH 2.820 uIU/mL (0.358-3.740) 07/19/24 08:19 06/23 03/15 COAG Pre-Assessment Diagnosis/Proposed Procedure Planned Operative Procedure(s): LEFT SHOULDER ARTHROSCOPY LABRUM STABLIZATION Anesthesia History Anesthesia History - hosiery mender: Anesthesia History - hosiery mender Hx Hospitalization No 02/11/25 12:58 Any Problems With Anesthesia No 02/11/25 12:58 Cholinesterase deficiency No 02/11/25 12:58 You/Your Family Experience No 02/11/25 12:58 fever (hyperthermia) with Relationship Recent Exposure to Contagious No 02/25/25 08:53 Disease Does patient have nerve No 02/11/25 12:58 stimulator Patient instructed to have device shut off --Does patient have Pacemaker No 02/25/25 08:53 or ICD? When Was Last Pacemaker Check QUESTION #4 FULL TEXT: You/Your Family Experience fever (hyperthermia) with Anesthesia Last Oral Intake Last Oral intake: Last Oral Intake NPO since 20:00 02/25/25 08:53 Meds taken in AM with sips of No 02/25/25 08:53 water? Meds patient instructed to take am of surgery PONV PONV - hosiery mender: PONV - hosiery mender Female No 02/11/25 12:58 HX of Motion Sickness Yes 02/11/25 12:58 HX of N/V After Surgery No 02/11/25 12:58 Non-Smoker Yes 02/11/25 12:58 Duration of Surgery greater Yes 02/11/25 12:58 than 60 minutes Number of Risk Factors 3 02/11/25 12:58 PONV Score Moderate Risk 02/11/25 12:58 Height & Weight Height & Weight: Anesthesia: Height & Weight Height 6 ft 2 in 02/25/25 08:53 Weight: 99 kg 02/25/25 08:53 Body Mass Index (BMI) 28.0 02/25/25 08:53 Respiratory Assessment Respiratory Assessment - hosiery mender: Respiratory Tract Infection Hx - hosiery mender Hx Respiratory Tract Infection No 02/11/25 12:58 STOP Sleep Apnea STOP Sleep Apnea - hosiery mender: STOP Sleep Apnea - hosiery mender Hx Hypertension No 02/11/25 12:58 Hx Sleep Apnea No 02/11/25 12:58 CPAP BIPAP Do you snore loudly (louder Yes 02/11/25 12:58 than talking or can be heard Do you often feel tired/ No 02/11/25 12:58 fatigued/ sleepy during daytime? Has anyone observed you stop No 02/11/25 12:58 breathing during sleep? STOP Results Negative 02/11/25 12:58 QUESTION #5 FULL TEXT : Do you snore loudly (louder than talking or can be heard through closeddoors)? 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 Specify any problems Hx of Preganancy in last 3 N/A 02/11/25 12:58 Months Nurse Filling Out Transfusion DSCHRIBER 02/11/25 12:58 & Questions: Date: 02/11/25 02/11/25 12:58 Time: 13:00 02/11/25 12:58 Patient unable to answer at this time (ie. confused, unrespo /Reproduction History /Reproductive History - hosiery mender: /Reproductive Hx- hosiery mender Hx Now No 02/11/25 12:58 Gestational Age (in weeks): EDC: Hx Hx Para Hx Section SAB No 02/11/25 12:58 Active Medications Active Medications: Current Medications Generic Name Dose Route Start Last Admin Trade Name Freq PRN Reason Stop Dose Admin Cefazolin Sodium 2 gm/ Sodium 110 mls @ 200 mls/hr 02/25/25 09:30 Chloride IV 02/25/25 10:02 INTRAOP ONE Lactated Ringer's 1,000 mls @ 15 mls/hr 02/25/25 08:45 02/25/25 08:59 IV 15 mls/hr .Q48H RAMONA Administration [facility] Medical History Alcohol use Fatty liver Syncope Heartburn Leg cramps Non-smoker Tear of left glenoid labrum Other instability, left shoulder Home Medications ?Medication ?Instructions ?Recorded ?Last Taken ?Type ibuprofen 200 mg capsule 200 mg PO Q6H PRN pain 02/02 Unknown History Allergy/AdvReac Type Severity Reaction Status Date / Time No Known Allergies Allergy Verified 02/11/25 12:57 Surgical History History of myringotomy H/O adenoidectomy Social History Smoking Status: Never smoker Review of Systems (Anesthesia) ROS Narrative System reviewed and no additional complaints, except as documented. 02/25/25 0903 > Date _ Jacob Kirkpatrick MD [facility] Signature: Date CC: ~ Signed [facility]07-14-2025 Progress [facility] [address] [place] [address] OFFICE VISIT Date of Service: 02/02/25 MR#: [id number] Acct: [id number] Name: RINA TOURE SAKSHI Rep #: [id number] : 1995 Provider: Dr. Kody Henao MD Age/Sex: 29/M Location: [facility] [place] Status: Signed Intake Vital Signs 01/22/25 08:01 [...] and the decisions made by me, Dr. Barrera MD 02/02/25 0802. Part of today?s visit was documented by [ ], acting as scribe. RINA TOURE is a 29 year old M here today for FU L shoulder MRI. Patient needed a new note forwork he does most activities with his right upper extremity wants a new note to that effect. He is here with his today. Ortho Exam General General: Yes no acute distress Neurologic: Yes alert and Yes oriented x3 Psychologic: Yes reasonable and appropriate Supplemental Info [facility] Imaging Services [address] [place] [id number] Upper Ext Joint Only(Routine) MR#: [id number] Acct: [id number] Name: RINA TOURE Rep #: [id number] : 1995 M 29 From: Austyn Boateng MD PCP: Dr. Fitz Jones MD Status: REG CLI Study: Upper Ext Joint Only(Routine) Date of Exam: 01/22/25 Exam# [id number] Ordering Dr: Fitz Jones MD PROCEDURE: UPPER EXT JOINT ONLY(ROUTINE) 01/22/2025 REASON FOR EXAM: SHOULDER LEFT TECHNIQUE: UPPER EXT JOINT ONLY(ROUTINE) Multiplanar and multisequence images were obtained without IV contrast administration. COMPARISON: COMPARISON: January 18, 2025 x-ray FINDINGS: Bone Marrow: There is a recent depressed reverse Hill-Sachs fracture in the anterior medial humeralhead with marrow edema consistent with posterior dislocation. [...] have a lower chance of recurrence and long- term better stability of the shoulder. We discussed the pros cons risk benefitsas well asthe recovery associated with the surgical labral repair [...] in the past year?: No 02/02/25 0837 n MD> Date _ Nolan Henao MD Cosigner Signature: Date (if applicable) CC: ~ [facility]07-14-2025 Progress note Author Nolan Henao [facility] Note Date/Time February 02, 2025 8:37 am [facility] [address] [place] [address] OFFICE VISIT Date of Service: 02/02/25 MR#: [id number] Acct: [id number] Name: RINA TOURE Rep #: [id number] : 1995 Provider: Dr. Kody Henao MD Age/Sex: 29/M Location: [facility] Status: Signed Intake Vital Signs 01/22/25 08:01 [...] documented by [ ], acting as scribe. RINA TOURE is a 29 year old M [...] Psychologic: Yes reasonable and appropriate Supplemental Info [facility] Imaging Services [address] [place], [place] [id number] Upper Ext Joint Only(Routine) MR#: [id number] Acct: [id number] Name: RINA TOURE Rep #: [id number] : 1995 M 29 From: Austyn Boateng MD PCP: Dr. Fitz Jones MD Status: REG CLI Study: Upper Ext Joint Only(Routine) Date of Exam: 01/22/25 Exam# [id number] Ordering Dr: Fitz Jones MD PROCEDURE: UPPER [...] subacromial subdeltoid bursa, with bursitis. Reading Location: [facility] Peck independently reviewed the imaging. Concur with [...] Cosigner Signature: Date (if applicable) CC: ~ [facility] Work Phone: 1(157) 154-411807-03-2025 Evaluation note* Diagnosis Onset Date Resolution Status Admit Date Left shoulder pain inactive January 222024 7:58am [facility] Work Phone: 1(761) 365-204107-03-2025 Evaluation note* Diagnosis Onset Date Resolution Status Admit Date Left shoulder pain inactive January 222024 7:58am Other instability, left shoulder acute February 02, 2025 8:01am Tear of left glenoid labrum acute February 02, 2025 8:01am [facility] Work Phone: 1(118) 781-325107-03-2025 Evaluation note* Diagnosis Onset Date Resolution Status Admit Date Left shoulder pain inactive January 222024 7:58am Other instability, left shoulder acute February 02, 2025 8:01am Tear of left glenoid labrum acute February 02, 2025 8:01am Other instability, left shoulder acute February 25, 2025 8:32am Tear of left glenoid labrum acute February 25, 2025 8:32am [facility] Work Phone: 1(257) 476-979106-30-2025 Radiology Diagnostic study note [facility] Imaging Services [address] [place], [place] [address] Shoulder min 2 Views MR#: [id number] Acct: [id number] Name: RINA TOURE Rep #: [id number] : 1995 M 29 From: Briana Solorzano MD PCP: Dr. Fitz Jones MD Status: REG ER Study:Shoulder min 2 Views Date of Exam: 01/18/25 Exam# [id number] Ordering Dr: Dimitri Mcclellan DO PROCEDURE: SHOULDER MIN 2 VIEWS 01/18/2025 REASON FOR EXAM: SHOULDER PAIN TECHNIQUE: SHOULDER MIN 2 VIEWS COMPARISON: No FINDINGS: No acute bone, soft tissue, or lung pathology. No degeneration. RAD/Shoulder min 2 Views IMPRESSION: No acute findings Reading Location: RAD-SOLORZANO-2 CC: Dr. Fitz oJnes MD; Dr. Perez Mcclellan DO ~ Woods Superintendent: Signed [facility]06-30-2025 Discharge summary [facility] Medical Records Department [address] [place] [address] Emergency Department Summary 01/19/25 MR#: [id number] Acct: [id number] Name: RINA TOURE Rep #:[id number] : 1995 29 [...] follow commands knew that he was at [facility] . Sensation grossly intact in the axillary [...] notehe is advised to rotate Tylenol andibuprofen [id number] and follow-up with Dr. Padilla in the [...] outpatient setting rotate Tylenol and I Profen [id number] when you do this he can take something every 3 hours max dose of Tylenol 4000 mgin 24 hours. Max dose of ibuprofen 3200 mg in 24 hours. Returnwith worsening symptoms or other concerns Print Language: [place] Leonean Disposition Disposition: Home, Self Care What to do if you have Problems For any increased pain, shortness of breath, bleeding, nausea or vomiting, chestpain, or any unexpected problems, contact your Primary Care Provider. Call [facility] ([phone]) or report tothe closest Emergency Room. Call 911 if necessary. 01/19/25 0033 Cosigner Signature (if applicable): CC: Dr. Fitz Jones MD ~ Signed [facility]03-15-2025 Radiology Diagnostic study note [facility] Imaging Services [address] [place] [address] Abdomen Limited MR#: [id number] Acct: [id number] Name: RINA TOURE Rep #: [id number] : 1995 M 29 From: Isai Wood DO PCP: Dr. Fitz Jones MD Status: REG CL I Study:Abdomen Limited Date of Exam: 09/20 12/14 Exam# [id number] Ordering Dr: Caterina Jones MD PROCEDURE: Right [...] Hepatic steatosis. Reading Location: [facility] CC: Dr. Ftiz Jones MD ~ Woods Superintendent: Signed [facility]04-13-2024 NoteHNO ID: [id number] Author: CLAUDIA BRANDT APRN.[employer] ARCHITECT Service: ? Author Type: Nurse Practitioner Type: Progress Notes Filed: 11/03/2023 09:40 Note Text: Patient triaged at [facility]. Here today with right eye infection, pain, slight fever. Reports change in color vision of infected eye. I will refer to [facility]04-13-2024 History of Present illness Narrative* Claudia Brandt APRN.MANI - 11/03/2023 9:39 AM EDT Patient triaged at [facility]. Here today with right eye infection, pain, slight fever. Reports change in color vision of infected eye. I will refer to ER [facility]03-[facility]-2024 NoteHNO ID: [id number] Author: SANDRA ALMAZAN APRN.MANI Service: ? Author Type: Nurse Practitioner Type: Progress Notes Filed: 09/29/2023 11:46 Note Text: Subjective Eye Problem Associated symptoms include congestion. Pertinent negatives include no chest pain, chills, coughing, fever, headaches, myalgias, rash or sore throat. Rina Toure is a 28 year old male [...] Discussed expected course of illness Sandra Almazan APRN.[facility]03-09-2024 History of Present illness Narrative* Sandra Almazan APRN.MANI - 09/29/2023 11:32 AM EST Images from the original note were not included. Subjective Eye Problem Associated symptoms include congestion. Pertinent negatives include no chest pain, chills, coughing, fever, headaches, myalgias, rash or sore throat. Rina Toure is a 28 year old male [...] Discussed expected course of illness Sandra Almazan APRN.[employer]S ARCHITECT documented [place] [address]-09-2024 Instructions* Patient Instructions* Sandra Almazan APRN.CNP - [...] Discussed expected course of illness Sandra Almazan APRN.[employer] ARCHITECT documented in this encounterKind[facility]05-20-2022 History of Present illness Narrative* Rio Velásquez [...] fever/malaise. Rio Velásquez MD documented in [facility] encounterAd[facility] Hospitallt note Author Guanako Walls [facility] Note Date/Time February 25, 2025 12: 18pm [facility] Medical Records Department [address] [place] [address] Anesthesia Postop Eval I 02/25/251216 MR#: [id number] Acct: [id number] Name: RINA TOURE Rep #:[id number] : 1995 29 From: Guanako TOTH PCP: Dr. Fitz Jones MD Status:REG SD C Y Race: C Location: [place] [address] Anesthesia: Postop Eval I Current Vital Signs Temperature: 97.5 F Pulse Rate: 83 Blood Pressure: 138/84 Respiratory Rate: 16 Pulse Ox: 96 Oxygen Delivery Method: Room Air Assessment Airway patent: Yes Spontaneous unlabored respirations: Yes Mental status: Awake and Calm nausea: No Vomiting: No Anesthesia Complication: No Fluid Hydration Crystalloid volume administer (ml): 1,200 Total IV fluid infused: 1,200 Progress Note Anesthesia document: Postop Eval 1 completed: Yes 02/25/258 <Electronically signed by Guanako Walls BALANCE WHEEL FACER> Date _ Guanako Walls BALANCE WHEEL FACER Antoniaigner Signature: Date CC: ~ Signed [facility] Work Phone: Discharge summary Author Adrián Newton [facility] November 03, 2023 10:27am Note Date/Time November 03, 2023 10: 27am [facility] Medical Records Department [address] [place] [address] Emergency Department Summary 11/03/23 MR#: [id number] Acct: [id number] Name: RINA TOURE Rep #:[id number] : 1995 28 [...] this morning with his eyes swollen shut. [facility] Home Medications amoxicillin 875 mg-potassium [...] CT imaging. He was referred to the outcomes specialist on-call and a prescription for Augmentin was [...] your Primary Care Provider. Call [facility] ([phone]) or report to the closest Emergency Room. Call 911 if necessary. 11/03/23 1027 <Electronically signed by Adrián Newton MD> Cosigner Signature (if applicable): CC: No Primary Care Physician ~ Signed [facility] Work Phone: Discharge summary Author Perez Mcclellan [facility] Note Date/Time January 19, 2025 12:3 3am [facility] Medical Records Department [address] [place] [address] Emergency Department Summary 01/19/25 MR#: [id number] Acct: [id number] Name: RINA TOURE Rep #:[id number] : 1995 29 [...] denies any direct trauma to the shoulder. [facility] Medical History no medical history Home Medications [...] follow commands knew that he was at [facility] . Sensation grossly intact in the axillary [...] is advised to rotate Tylenol and ibuprofen [id number] and follow-up with Dr. Padilla in the [...] outpatient setting rotate Tylenol and I Profen [id number] when you do this he can take something every 3 hours max dose of Tylenol 4000 mgin 24 hours. Max dose of ibuprofen 3200 mg in 24 hours. Return with worsening symptoms or other concerns Print Language: [place] Leonean Disposition Disposition: Home, Self Care What to do if you have Problems For any increased pain, shortness of breath, bleeding, nausea or vomiting, chestpain, or any unexpected problems, contact your Primary Care Provider. Call [employer] [facility] ([phone]) or report to the closest Emergency Room. Call 911 if necessary. 01/19/25 0033 <Electronically signed by Perez Mcclellan DO> Cosigner Signature (if applicable): CC: Dr. Fitz Jones MD ~ Signed [facility] Work Phone: Evaluation note* Diagnosis Contact dermatitis due to plant- Primary Contact dermatitis and other eczema due to plants (except food) documented in this encounter [facility] note* Diagnosis Bacterial sinusitis- Primary Unspecified sinusitis (chronic) Bacterial conjunctivitis Other conjunctivitis documented in this encounter [facility] noteNo assessment information availableWCleveland Clinic Hillcre[facility] Work Phone: Evaluation note* Diagnosis Vision changes- Primary Unspecified visual disturbance Orbital cellulitis on right Orbital cellulitis documented in this encounter [facility] note* Diagnosis Onset Date Resolution Status Admit Date Left shoulder pain acute January 222024 7:58am [facility] Work Phone: Hospital Discharge instructionsAdditional Instructions Your x-ray did not show any acute fractures or dislocations. Follow-up with Dr. Padilla in the outpatient setting rotate Tylenol and I Profen uciqky-rmt-[id number] when you do this he can take something every 3 hours max dose of Tylenol 4000 mg in 24 hours. Max dose of ibuprofen 3200 mg in 24 hours. Return with worsening symptoms or other concernsWCleveland Clinic Hillcrest [facility] Work Phone: Hospital Discharge instructionsAmbulatory Orders* PT Referral Location: None Selected [facility] Work Phone: Reason for referral (narrative)No reason for referral information availableWCleveland Clinic Hillcre[facility] Work Phone: Summary Purpose Family History No Family History Records FoundNo Family History Records FoundNo Family History Records Found Advance Directives Advance Directive Response Recorded Date/ Time Living Will No November 03, 2023 10:24am Power of Color Adviser No November 02 10:24am Advance Directive Response Recorded Date/ Time Do you have a Healthcare Power of Color Adviser? No January 18, 2025 9:51pm Advance Directive Response Recorded Date/ Time Do you have a Healthcare Power of Color Adviser? No January 18, 2025 9:51pm Do you have a Healthcare Power of Color Adviser? No February 11, 2025 12:58pm Chief Complaint and Reason for Visit Chief Complaint CELLULITIS Chief Complaint Admit Date Abnormal levels of other serum enzymes [facility] 2024 9:14am Chief Complaint Admit Date Abnormal levels of other serum enzymes [facility] 2024 9:14am shoulder injury January 18, 2025 [...] 7:58a m pain in unspecified shoulder January 22, 025 9:20am Chief Complaint Admit Date shoulder injury January 18, 2025 9:33 pm LEFT SHOULDER January 22, 2025 7:58a m pain in unspecified shoulder January 22, 9:20am LEFT SHOULDER February 02, 2025 8:01 am Reason for Visit Admit Date Left shoulder pain January 22, 2025 7:58a m Other instability, left shoulder February 022024 8:01am Tear of left glenoid labrum February 02 8:01am Chief Complaint Admit Date shoulder injury January 18, 2025 9:33 pm LEFT SHOULDER January 22, 2025 7:58a m pain in unspecified shoulder January 22 9:20am LEFT SHOULDER February 02, 2025 8:01 am Left shoulder Arthroscopy, labrum stabil ization February 25, 2025 8:32am Left shoulder Arthroscopy, labrum stabil ization February 25, 2025 9:43am Reason for Visit Admit Date Left shoulder pain January 22, 2025 7:58a m Other instability, left shoulder February 022024 8:01am Tear of left glenoid labrum February 02 8:01am Other instability, left shoulder February 25, 2025 8:32am Tear of left glenoid labrum February 25, 2025 8:32am Additional Source Comments (unrecognized sect ion and content) No Status Records FoundNo Status Records FoundNo Status Records Found INFORMATION SOURCE (unrecogn ized section and content) DATE CREATED AUTHOR 01/15/2018 [facility] DATE CREATED AUTHOR AUTHOR'S ORGANIZ ATION 11/04/2023 [facility] DATE CREATED AUTHOR AUTHOR'S ORGANNORMA ATION 02/17/2025 [facility] Source Comments (unrecognize d section and content) In the event this informatio n is protected by the Federal Confidentiality of Alcohol and Drug Abuse Patient Records regulations: The Federal rules restrict any use of the information to criminally investigate or prosecute any alcohol or drug abuse patient.[facility]red HealthcareIn the event this information is protected by the Federal Confidentiality of Alcohol and Drug Abuse Patient Records regulations: The Federal rules restrict any use of the information to criminally investigate or prosecute any alcohol or drug abuse patient.[facility] HealthcareIn the event this information is protected by the Federal Confidentiality of Alcohol and Drug Abuse Patient Records regulations: The Federal rules restrict any use of the information to criminally investigate or prosecute any alcohol or drug abuse patient.[facility] HealthcareIn the event this information is protected by the Federal Confidentiality of Alcohol and Drug Abuse Patient Records regulations: The Federal rules restrict any use of the information to criminally investigate or prosecute any alcohol or drug abuse patient.[facility] Reason for Visit (unrecogniz ed section and content) Reason Comments Rash Pt reported possible poison sri face, arms upper torso x3 days Specialty Diagnoses / Procedures Referred By Contac t Referred To Contact Family Practice / [facility] Diagnoses possible poison sri all over Procedures URGENT CARE Self Rio Velásquez MD [address] [place] [address] Referral ID Status Reason Start Date Expiration Date Visits Requested Visits Authorized [id number] Pending Review Financial Clearance Required - Self Pay 12/09/2021 03/09/2022 1 1 Reason Comments Prescription Request Reason Comments Eye Problem Left eye swelling, p ressure and scratchy since 4 am Specialty Diagnoses / Procedures Referred By Contac t Referred To Contact Internal Medicine / [facility] Diagnoses R eye swollen shut Procedures EST SAME DAY Nazia Lee V, MD [address] [place] [address] [facility] [address] [place] [address] Referral ID Status Reason Start Date Expiration Date Visits Requested Visits Authorized [id number] Pending Review Financial Clearance Required - Self Pay 11/03/2023 02/01/2024 1 1 Care Teams (unrecognized sec tion and content) Team Status: Active Member Role Status Dates No Primary Care Physician Primary Care Provider Active Team Status: Inactive Member Role Status Dates Adrián Newton MD Emergency Provider Active No Primary Care Physician Primary Care Provider Active Team Status: Active Member Role Status Dates Fitz Jones MD Primary Care Provider Active Team Status: Inactive Member Role Status Dates Ftiz Jones MD Primary Care Provider Active St [...] January 22, 2025 End: January 22, 2025 iFtz Jones MD Referring Provider Active Start : [...] Henao MD Attending Provider Active St art: February 02, 2025 End: February 02, 2025 Team Status: Inactive Member Role/Relationship Status [...] Henao MD Attending Provider Active St art: February 02, 2025 End: February 02, 2025 Team Status: Inactive Member Role/Relationship Status Alexys Jones MD Primary Care Provider Active St art: February 25, 2025 End: February 25, 2025 Nolan Henao MD Attending Provider Active St art: February 25, 2025 End: February 25, 2025 Nolan Henao MD Referring Provider Active St art: February 25, 2025 End: February 25, 2025 Team Status: Active Member Role/Relationship Status Alexys Jones MD Primary Care Provider Active St art: February 25, 2025 Nolan Henao MD Attending Provider Active St art: February 25, 2025 Nolan Henao MD Referring Provider Active St art: February 25, 2025 Nolan Henao MD Other Provider Active Start: February 25, 2025 Goals (unrecognized section and content) Goals [...] BE BASED ON THE PRIMARY CLINICAL RECORDS. [facility] [employer] [facility]. provides no warranty or guarantee of the accuracy or completeness of information in this document.
[2025-02-25 22:50] VITALS: BP 130/72; PULSE 79; RESP 18; TEMP 36.7; O2SAT 100
== END 2025-02-25 22:51 | disposition home or self-care (01) ==
LOC: ED 22:37
PROVIDERS: Emergency Provider Emergency Medicine; PCP Family Medicine; Visit Provider Emergency Medicine
DX: Z48.89 Encounter for other specified surgical aftercare (principal)
CPT/HCPCS: 99282

== ENCOUNTER 2025-06-03 15:30 | Outpatient (RCR) | payer OTHER, SELFPAY ==
--- NOTE | 2025-03-11 17:28 | HP.PTEVAL ---
Patient's Visit Information Visit Information Visit Information: JOHN TOURE is a 30 year old M referred to Physical Therapy by Dr. Nolan Henao MD with a diagnosis of S/P L SLAP labral repair on 02/25/25. Date of Evaluation: 03/11/25 Physical Therapist: GIULIANO Nathan Visit Plan Frequency: 2x /Week Duration: 3 Months Plan: said no lifting, No ER <20 degrees 2X/ week for 12 weeks for following SLAP guidelines (in folder) week 3-4 PROM: Dr said no ER >20 degrees, flexion in scapular plane to 90 degrees, Abduction to 80 degrees, IR to 55 degrees in scapular plane Week 5-6 PROM and AAROM flexion to 145, ER at 45 degree abduction to 50, IR at 45 degrees abd to 60 degrees and AROM to full without weight and abductions as tolerated Dr told pt that when her returns to his office at 6 weeks he might be able to start strengthening then HEP: scapular retraction, pendulums fw/BW and side to side Subjective Subjective: Pt had L labral repair on 02/25/2025. He saw the Dr yesterday and took him out of the sling. RTD in 4 weeks. He said no lifting for another 4 weeks. 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 He is back to work and does what he can without using his L arm. He wrights L handed but uses both arms. He throws R handed. He is sleeping pretty good and now he is back in bed with pillows. Pt was golfing and he tore it but thinks that he had torn it before and it had healed and re torn. Pain L shoulder pain: Pain Intensity (Out of 10): 3 Objective Objective: L shoulder PROM: Flexion 112 degrees ER 18 ER Instructed in pendulums... fw/BW and side to side Posture: rounded shoulders and shoulder protraction so we worked retraction of shoulder blades Balance/Special Test Scores Quick DASH Score: 50.0000 Goals Goal 1:: I HEP Goal Time Frame: 8-12 Weeks Goal 2:: Increase L shoulder AROM to 170 degrees elevation and 60 degrees ER by discharge. Goal Time Frame: 8-12 Weeks Goal 3:: Be able to use his L shoulder functionally without pain Goal Time Frame: 8-12 Weeks Goal 4:: Be able to demonstrate good posture without protraction of the shoulders Rehabilitation Potential Rehabilitation Potential: Good Anticipated Interventions Patient/Client Instruction: Educate patient on: Condition and Plan of Care For the Purpose of:: To decrease pain, To decrease swelling/inflammation, To increase ROM, To improve nutrient delivery to tissue, To improve muscle performance and motor function, To improve ability to perform ADL's, To increase tolerance to activity/condition/position, To improve performance and independence with ADL's, To decrease level of supervision to perform tasks, To improve ability of physical actions for home/community/work/leisure, To improve health of tissue, To decrease soft tissue restriction and To increase flexibility/ROM Therapeutic Exercise to Include: Strength training, Postural training, Flexibilty training, Passive ROM, Active ROM and Scapular Strength/Stabilization For the Purpose of:: To decrease pain, To increase ROM, To improve nutrient delivery to tissue, To improve muscle performance and motor function, To improve ability to perform ADL's, To increase tolerance to activity/condition/position, To improve performance and independence with ADL's, To improve ability of physical actions for home/community/work/leisure, To improve health of tissue, To decrease soft tissue restriction and To increase flexibility/ROM Manual Therapy Techniques to Include: Passive ROM and Soft tissue mobilization For the Purpose of:: To decrease pain, To decrease swelling/inflammation, To increase ROM, To improve nutrient delivery to tissue, To improve muscle performance and motor function, To increase tolerance to activity/condition/position, To improve health of tissue, To decrease soft tissue restriction and To increase flexibility/ROM Cryotherapy (ice pack, ice massage): Yes Thermo therapy (hot pack): Yes For the Purpose of:: To decrease pain, To decrease swelling/inflammation, To increase ROM and To improve nutrient delivery to tissue Text: Thank you for the opportunity to evaluate your patient. For Medicare and Medicare HMO plans, please review the plan of care and approve it. It will need to be FAXED BACK to us at [phone] for Medicare purposes. For Medicare only, by signing this I certify the plan of care. Please let me know if there are questions or concerns regarding this plan of care. Physician Signature: Date:
--- NOTE | 2025-04-22 16:12 | HP.PTREVAL_ITS ---
Re-Evaluation Intro: Dr. Nolan Henao MD, It has been my pleasure to treat JOHN TOURE over the last 10 visits for S/P L SLAP labral repair on 02/25/25. Please see the progress note below for an update on the physical therapy plan of care! Subjective Subjective: No pain today. Pt to RTD in 3 months. Pt does not feel that he is 100%. Objective Objective/Function: Encouraged pt to continue with end range wand flexion, doorway ER and strength (IR/ER) for HEP Shoulder AROM: L shoulder flexion 145 L shoulder ABD 154 L IR T12 L shoulder ER 46 Shoulder MMT: R shoulder flex 15.2 and L 11 R shoulder ER 16.3 and L 13.5 Plan Plan Plan: 2X/ week for 2 weeks and then 1X/ week for 3 weeks to continue to work on strengthening and increase HEP. Work on end range ER and flexion and Strength. Balance/Gait/Functional tests Balance/Special Test Scores Quick DASH Score: 13.6350 Goals Goals Goal 1:: I HEP Goal Time Frame: 8-12 Weeks Goal Progress: Goal Met Goal 2:: Increase L shoulder AROM to 170 degrees elevation and 60 degrees ER by discharge. Goal Time Frame: 8-12 Weeks Goal Progress: Progressing Goal 3:: Be able to use his L shoulder functionally without pain Goal Time Frame: 8-12 Weeks Goal Progress: Progressing Goal 4:: Be able to demonstrate good posture without protraction of the shoulders Goal Progress: Progressing Goal 5:: Increase L shoulder strength to equal the R (at the time of the Re- eval on 04/22: Shoulder MMT: R shoulder flex 15.2 and L 11 R shoulder ER 16.3 and L 13.5 Goal Time Frame: 8-12 Weeks Anticipated Interventions Anticipated Interventions Patient/Client Instruction: Educate patient on: Condition and Plan of Care For the Purpose of:: To decrease pain, To decrease swelling/inflammation, To increase ROM, To improve nutrient delivery to tissue, To improve muscle performance and motor function, To improve ability to perform ADL's, To increase tolerance to activity/condition/position, To improve performance and independence with ADL's, To decrease level of supervision to perform tasks, To improve ability of physical actions for home/community/work/leisure, To improve health of tissue, To decrease soft tissue restriction and To increase flexibility/ROM Therapeutic Exercise to Include: Strength training, Postural training, Flexibilty training, Passive ROM, Active ROM and Scapular Strength/Stabilization For the Purpose of:: To decrease pain, To increase ROM, To improve nutrient delivery to tissue, To improve muscle performance and motor function, To improve ability to perform ADL's, To increase tolerance to activity/condition/position, To improve performance and independence with ADL's, To improve ability of physical actions for home/community/work/leisure, To improve health of tissue, To decrease soft tissue restriction and To increase flexibility/ROM Manual Therapy Techniques to Include: Passive ROM and Soft tissue mobilization For the Purpose of:: To decrease pain, To decrease swelling/inflammation, To increase ROM, To improve nutrient delivery to tissue, To improve muscle performance and motor function, To increase tolerance to activ ity/condition/position, To improve health of tissue, To decrease soft tissue restriction and To increase flexibility/ROM Cryotherapy (ice pack, ice massage): Yes Thermo therapy (hot pack): Yes For the Purpose of:: To decrease pain, To decrease swelling/inflammation, To increase ROM and To improve nutrient delivery to tissue Re-Evaluation Ending Re-evaluation ending: Please do not hesitate to contact me at [phone] by phone or if you have questions or concerns regarding this new plan of care! Sincerely, GIULIANO Nathan
--- NOTE | 2025-06-03 16:25 | HP.PTREVAL_ITS ---
Re-Evaluation Intro: Dr. Nolan Henao MD, It has been my pleasure to treat JOHN TOURE over the last 17 visits for S/P L SLAP labral repair on 02/25/25. Please see the progress note below for an update on the physical therapy plan of care! Subjective Subjective: Pt has no pain. He feels that he is getting there with his strength. Going overhead it might feel likes it wants to get stuck but after a few tries it is good. He went to [place] and he was able to swim. Pt has a gym membership and wants to be able to do these exercises on his own. Objective Objective/Function: Shoulder MMT: R shoulder flex 15.2 and L 13.5 R shoulder ER 16.3 and L 18.3 L shoulder flexion 165 and ER 59 Plan Plan Plan: Hold chart X 2 weeks. Pt will call in and let us know if he is doing well strengthening on his own Balance/Gait/Functional tests Balance/Special Test Scores Quick DASH Score: 2.2725 Goals Goals Goal 1:: I HEP Goal Time Frame: 8-12 Weeks Goal Progress: Goal Met Goal 2:: Increase L shoulder AROM to 170 degrees elevation and 60 degrees ER by discharge. Goal Time Frame: 8-12 Weeks Goal Progress: Goal Met Goal 3:: Be able to use his L shoulder functionally without pain Goal Time Frame: 8-12 Weeks Goal Progress: Goal Met Goal 4:: Be able to demonstrate good posture without protraction of the shoulders Goal Progress: Goal Met Goal 5:: Increase L shoulder strength to equal the R (at the time of the Re- eval on 04/22: Shoulder MMT: R shoulder flex 15.2 and L 11 R shoulder ER 16.3 and L 13.5 Goal Time Frame: 8-12 Weeks Goal Progress: Goal Met Anticipated Interventions Anticipated Interventions Patient/Client Instruction: Educate patient on: Condition and Plan of Care For the Purpose of:: To decrease pain, To decrease swelling/inflammation, To increase ROM, To improve nutrient delivery to tissue, To improve muscle performance and motor function, To improve ability to perform ADL's, To increase tolerance to activity/condition/position, To improve performance and independence with ADL's, To decrease level of supervision to perform tasks, To improve ability of physical actions for home/community/work/leisure, To improve health of tissue, To decrease soft tissue restriction and To increase flexibility/ROM Therapeutic Exercise to Include: Strength training, Postural training, Flexibilty training, Passive ROM, Active ROM and Scapular Strength/Stabilization For the Purpose of:: To decrease pain, To increase ROM, To improve nutrient delivery to tissue, To improve muscle performance and motor function, To improve ability to perform ADL's, To increase tolerance to activity/condition/position, To improve performance and independence with ADL's, To improve ability of physical actions for home/community/work/leisure, To improve health of tissue, To decrease soft tissue restriction and To increase flexibility/ROM Manual Therapy Techniques to Include: Passive ROM and Soft tissue mobilization For the Purpose of:: To decrease pain, To decrease swelling/inflammation, To increase ROM, To improve nutrient delivery to tissue, To improve muscle performance and motor function, To increase tolerance to activity/condition/position, To improve health of tissue, To decrease soft tissue restriction and To increase flexibility/ROM Cryotherapy (ice pack, ice massage): Yes Thermo therapy (hot pack): Yes For the Purpose of:: To decrease pain, To decrease swelling/inflammation, To increase ROM and To improve nutrient delivery to tissue Re-Evaluation Ending Re-evaluation ending: Please do not hesitate to contact me at [phone] by phone or if you have questions or concerns regarding this new plan of care! Sincerely, Renetta Cline, MPT
--- NOTE | 2025-06-23 14:12 | HP.PTDCSUM_ITS ---
Discharge Summary D/C summary: It has been my pleasure to treat JOHN TOURE referred by Dr. Nolan Henao MD, with the diagnosis of S/P L SLAP labral repair on 02/25/25 for a total of 17 visit(s). Discharge Date: 06/23/25 Please see the following information for a summary of their discharge status. Subjective Subjective: Pt has no pain. He feels that he is getting there with his strength. Going overhead it might feel likes it wants to get stuck but after a few tries it is good. He went to [place] and he was able to swim. Pt has a gym membership and wants to be able to do these exercises on his own. Pain L shoulder pain: Pain Intensity (Out of 10): 0 Overall Improvement % Improvement: 100 Objective Objective/Function: Shoulder MMT: R shoulder flex 15.2 and L 13.5 R shoulder ER 16.3 and L 18.3 L shoulder flexion 165 and ER 59 Goals Goal 1:: I HEP Goal Progress: Goal Met Goal 2:: Increase L shoulder AROM to 170 degrees elevation and 60 degrees ER by discharge. Goal Progress: Goal Met Goal 3:: Be able to use his L shoulder functionally without pain Goal Progress: Goal Met Goal 4:: Be able to demonstrate good posture without protraction of the shoulders Goal Progress: Goal Met Goal 5:: Increase L shoulder strength to equal the R (at the time of the Re- eval on 04/22: Shoulder MMT: R shoulder flex 15.2 and L 11 R shoulder ER 16.3 and L 13.5 Goal Progress: Goal Met Plan Plan: Hold chart X 2 weeks. Pt will call in and let us know if he is doing well strengthening on his own D/C Information Discharge Comments: DC PT d/c sentence: If there are questions or concerns regarding this patient's physical therapy, please feel free to call me at [phone]. Thank you for the referral of this patient. Sincerely, Renetta Cline, MPT Balance/Gait/Functional tests Balance/Special Test Scores Quick DASH Score: 2.2725 Improvement % Improvement: 100
== END 2025-06-03 19:00 | disposition home or self-care (01) ==
LOC: PT 15:30
PROVIDERS: PCP Family Medicine; Referring Provider Orthopaedic Surgery Sports Medicine; Visit Provider Orthopaedic Surgery Sports Medicine
DX: M25.512 Pain in left shoulder (principal)
CPT/HCPCS: 97110; 97140; 97161; 97530